=== PATIENT | female | born 1990 | race Caucasian/White ===

== ENCOUNTER 2024-02-26 02:00 | Emergency (ER) | payer MEDICAID, SELFPAY ==
[2024-02-26 02:02] VITALS: BP 129/92; PULSE 103; RESP 20; TEMP 37; O2SAT 99; BMI 33.7
--- NOTE | 2024-02-26 02:13 | XR_ITS ---
PROCEDURE INFORMATION: Exam: XR Chest Exam date and time: 02/26/2024 2:29 AM Age: 33 years old Clinical indication: Cough; Additional info: Cough x1w TECHNIQUE: Imaging protocol: Radiologic exam of the chest. Views: 2 views. COMPARISON: No relevant prior studies available. FINDINGS: Lungs: Peribronchial interstitial infiltrates are present bilaterally. No airspace disease. Pleural spaces: No pleural effusions. Heart/Mediastinum: Unremarkable. No cardiomegaly. Bones/joints: Osseous structures are appropriate for age. IMPRESSION: Airways disease or infectious bronchitis. No acute airspace pneumonia.
--- NOTE | 2024-02-26 02:23 | ED_ITS ---
Discharge Plan Disposition Patient Disposition: Home, Self-Care Prescriptions Prescriptions: New prednisone 50 mg tablet 50 mg PO DAILY 4 Days Qty: 4 0RF No Action venlafaxine 150 mg Capsule,Extended Release 24hr 150 mg PO DAILY trazodone 100 mg Tablet 50 mg PO HS topiramate 100 mg Tablet 100 mg PO BID Referrals Follow up/Referrals: Lauro Cho [Primary Care Provider] - See instructions Activity Restrictions/Add. Instructions Additional Instructions/Restrictions: You were evaluated in the ER and are appropriate for discharge at this time. Take the prescribed medications as directed. Take your albuterol, 2 puffs every 4 hours for the next 2 days if needed for cough/shortness of breath. Make an appointment with your primary care doctor for reevaluation in a few days. Return to the ER with new, worsening, or otherwise concerning symptoms Clinical Impressions Clinical Impression: Cough Print Language Print Language: Mauritian Discharge ED Provider: Sumit Conrad General Adult HPI General Chief complaint: Upper Respiratory Infection Stated complaint: congestion, body aches, cough Time Seen by Provider: 02/26/24 02:07 Mode of Arrival: Wheelchair Source of Information: Patient Limitations: No Limitations Description of Symptoms (Recalled from ER Triage Doc. by RN): 33 F presents from home with c/o cough, congestion, and flu-like symptoms that started 1 week ago. Patient reports her cough has not gotten better despite using an inhaler and albuterol pills given to her by her PCP. Patient also reports subjective fevers, low back pain that radiates down her hips. History of Present Illness HPI narrative: 33-year-old female who reports a history of discectomy, cholecystectomy, C- section presents to the ER for complaints of cough, congestion, flulike symptoms for 1 week. Patient reports negative COVID and flu test 4 days ago. She reports she overall feels worse since the onset of symptoms and has a persistent cough despite taking promethazine?dextromethorphan and albuterol despite patient having no known history of COPD, asthma, or other lung abnormalities. Patient states her whole body aches from coughing and she occasionally has emesis after coughing. She denies nausea at this time. Patient reports she has not taken Tylenol, ibuprofen, or other medications aside from what is prescribed to her. She reports poor sleep secondary to chronic cough keeping her up at night. She believes she has had fever at home despite not taking her temperature. Afebrile on arrival to the ER. Related Data Home Medications ?Medication ?Instructions ?Recorded ?Confirmed topiramate 100 mg tablet 100 mg PO BID 02/26/24 02/26/24 trazodone 100 mg tablet 50 mg PO HS 02/26/24 02/26/24 venlafaxine 150 mg 150 mg PO DAILY 02/26/24 02/26/24 capsule,extended release 24 hr Previous Rx's ?Medication ?Instructions ?Recorded prednisone 50 mg tablet 50 mg PO DAILY 4 days #4 tabs 02/26/24 Allergies Allergy/AdvReac Type Severity Reaction Status Date / Time cephalexin [From Keflex] Allergy Hives Verified 02/26/24 02:14 amoxicillin [From Augmentin] AdvReac Vomiting Verified 02/26/24 02:14 clavulanic acid AdvReac Vomiting Verified 02/26/24 02:14 [From Augmentin] PFSH [facility] Disclaimer: The information contained in this section may have been updated after the patient was seen, as this information can be updated by other users. Medical History (Updated 02/26/24 @ 03:16 by Sumit Conrad MD) Depression Anxiety Surgical History (Updated 02/26/24 @ 02:23 by Fei Dorado, JEREMÍAS) S/P lumbar discectomy S/P section S/P cholecystectomy Family History (Updated 02/26/24 @ 02:22 by Fei Dorado, RN) Other No significant family history Social History (Updated 02/26/24 @ 02:16 by Fei Dorado, RN) Smoking Status: Current every day smoker alcohol intake: current current occupational status: employed Travel in the last 8 weeks: None ROS Obtained: Yes All systems reviewed & no additional complaints except as documented Positive ROS per HPI Physical Exam General General appearance: alert and in no apparent distress Head Head exam: atraumatic and normocephalic Eye Eye exam: Present PERRL and EOMI ENT ENT exam: Present mucous membranes moist Neck Neck exam: Present normal inspection and full ROM Chest Chest inspection: Present symmetric chest wall rise Respiratory Respiratory exam: Present wheezes (Inspiratory with associated Rales in the bilateral lung maki, good air movement throughout); Absent respiratory distress, stridor, accessory muscle use or prolonged expiratory phase Cardiovascular Cardiovascular exam: Present regular rate and normal rhythm Abdominal Exam Abdominal exam: Present soft; Absent distention or tenderness Extremities Exam Extremities exam: Present full ROM Neurological Exam Neurological exam: Present alert and oriented X3; Absent motor sensory deficit Psychiatric Psychiatric exam: Present normal affect and normal mood Skin Skin exam: Present warm and dry Medical Decision Making Medical Records Screening: Per USPSTF and CDC recommendations, given the prevalence of disease in our region, it is our hospital?s policy to screen for HIV and viral Hepatitis for all patients aged 18 and over and those with ongoing risk factors. Harmeet Inquiry Pt receiving controlled substance: No Vital Signs: 02/26/24 02:02 02/26/24 02:30 02/26/24 02:48 Temperature 98.6 F Temperature Source Oral Pulse Rate 95 H 84 Pulse Rate [Right] 103 H Respiratory Rate 20 20 19 Blood Pressure 119/88 115/86 Blood Pressure [Left Arm] 129/92 H Blood Pressure Mean 98 93 Blood Pressure Mean [Left Arm] 104 Blood Pressure Source [Left Arm] Automatic Cuff Blood Pressure Position [Left Arm] Sitting 02 Sat by Pulse Oximetry 99 98 100 Oxygen Delivery Method Room Air Room Air Room Air Lab Data Lab Results 02/26/24 02:18: VBG pH 7.38, VBG pCO2 36.6, VBG pO2 33.6, VBG HCO3 21.2 L, VBG Total CO2 22.3 L, VBG O2 Saturation 75.4 H, VBG Base Excess -4.0 L, VBG Lactic Acid 1.4 02/26/24 02:30: WBC 13.5 H, RBC 5.54 H, Hgb 17.6 H, Hct 49.7 H, MCV 89.7, MCH 31.8 H, MCHC 35.5 H, RDW 13.2, Plt Count 284, MPV 7.8, Neut % (Auto) 80.4 H, Lymph % (Auto) 12.9, Aiken % (Auto) 5.8, Eos % (Auto) 0.3, Baso % (Auto) 0.8, N eut # (Auto) 10.9 H, Lymph # (Auto) 1.7, Aiken # (Auto) 0.8, Eos # (Auto) 0.0, Baso # (Auto) 0.1, Sodium 141, Potassium 3.8, Chloride 110 H, Carbon Dioxide 21 L, Anion Gap 13.8, BUN 12, Creatinine 0.80, Estimated Creat Clear 140, Estimated GFR 82, Est GFR ( Amer) 99, Glucose 83, Calcium 9.9, Total Bilirubin 0.6, AST 26, ALT 24, Alkaline Phosphatase 70, Troponin I < 0.01, Total Protein 8.7 H, Albumin 4.9, Globulin 3.8 H, Albumin/Globulin Ratio 1.3, Serum HCG, Qual Negative, HIV 1&2 Antibody Rapid Nonreactive 02/26/24 02:30 02/26/24 02:30 Orders (Tests/Meds): ED MEDICATIONS Generic Name Dose Route Start Last Admin Trade Name Freq PRN Reason Stop Dose Admin Lactated Ringer's 1,000 mls @ 999 mls/hr 02/26/24 02:22 02/26/24 02:40 Lactated Ringer's 1000 Ml Bag IV 02/26/24 03:22 999 mls/hr .Q1H1M ONE Administration Discontinued Medications Generic Name Dose Route Start Last Admin Trade Name Freq PRN Reason Stop Dose Admin Albuterol/Ipratropium 3 ml 02/26/24 02:21 02/26/24 02:40 Ipratropium/Albuterol 3 Ml Neb 02/26/24 02:22 3 ml ONCE ONE Administration Ketorolac Tromethamine 15 mg 02/26/24 02:22 02/26/24 02:40 Ketorolac 30mg/Ml Vial IV 02/26/24 02:23 15 mg ONCE ONE Administration Lidocaine HCl 5 ml 02/26/24 02:32 02/26/24 02:40 Lidocaine 2% 5ml Pf Vial IH 02/26/24 02:33 5 ml ONCE ONE Administration Methocarbamol 1,000 mg 02/26/24 03:12 02/26/24 03:19 Methocarbamol 500mg Tablet PO 02/26/24 03:13 1,000 mg ONCE ONE Administration Methylprednisolone Sodium Succinate 80 mg 02/26/24 03:13 02/26/24 03:19 Methylprednisolone Sod Succ 125mg Vial IV 02/26/24 03:14 80 mg ONCE ONE Administration ORDERS Category Date Time Status CXR 2 view (NOT portable) [XR chest 2V] Stat Exams 02/26/24 02:13 Completed CBC w/Auto Diff [Complete Blood Count Auto Diff] Stat Lab 02/26/24 02:30 Completed CMP [Comprehensive Metabolic Panel] Stat Lab 02/26/24 02:30 Completed HCG Qualitative, Serum Stat Lab 02/26/24 02:30 Completed HIV (1&2) Antibody Rapid Stat Lab 02/26/24 02:30 Completed Hep C Ab with Reflex to RNA Stat Lab 02/26/24 02:30 Received Trop I [Troponin I] Stat Lab 02/26/24 02:30 Completed Troponin I Q3H Lab 02/26/24 05:30 Ordered Troponin I Q3H Lab 02/26/24 08:30 Ordered VBG [Venous Blood Gas] Stat RT 02/26/24 02:18 Completed ECG Request Stat Y 02/26/24 02:18 Ordered HEART Score History (anamnesis): Slightly suspicious ECG: Normal Age: <45 years Risk factors: No known risk factors Troponin: </= normal limit HEART Score: 0 Medical Decision Narrative: In summary, this 33-year-old female with comorbidities as described in HPI presents to the emergency department today with cough, shortness of breath, subjective fever, flulike symptoms for 1 week. On initial evaluation patient is hemodynamically stable, afebrile, lungs have good air movement throughout however patient does have inspiratory wheezing and rales in the bilateral lung bases, left worse than right, normal SpO2 on room air, remainder of exam benign. Differential diagnosis includes but is not limited to viral syndrome, electrolyte abnormality, hypercarbia, I considered possibility of asthma/COPD since patient is a smoker, though I do not appreciate expiratory wheezing and believe her adventitious lung sounds are more likely related to infectious etiology such as viral syndrome, bacterial pneumonia. I did consider the possibility of PE but have very low suspicion for this, patient is PERC negative and no further workup for this is required at this time. Given patient's complaint of shortness of breath, ACS was considered. Based on these concerns, I ordered cardiac workup, chest x-ray, VBG. ECG personally interpreted demonstrates normal sinus rhythm, rate 85, normal axis, normal IA and QTc, no STEMI. Patient received DuoNeb, fluids, Toradol for treatment initially. Labs personally reviewed demonstrate VBG with pH 7.38, no hypercarbia, normal pO2, lactic 1.4, initial troponin undetectably low at less than 0.01, I do not believe serial troponins are indicated at this time since patient has low heart score, reassuring ECG, and prolonged duration of symptoms that should have shown troponin elevation at by this time if they were cardiac in nature. XR personally interpreted demonstrates no lobar infiltrate, pneumothorax, or other acute intrathoracic abnormality aside from airway inflammation on my personal interpretation, see radiology read for final interpretation. On reassessment patient is had improvement of cough and wheezing since nebulizer treatments. She was still having muscle aches and methocarbamol was administered. Patient also received Solu-Medrol. She reported to me she did have a history of childhood asthma which increases my suspicion for component of airway inflammation/asthma contributing to her symptoms at this time. I encouraged the patient to take her home albuterol inhaler more frequently and prescribed prednisone for outpatient management. Patient was given instructions on symptomatic management, follow up instructions, and return precautions for the emergency department. Patient indicated understanding and was discharged in stable condition. Critical Care Critical Care Time Critical Care Time: No
[2024-02-26 02:30] VITALS: BP 119/88; PULSE 95; RESP 20; O2SAT 98
[2024-02-26 02:37] LABS: Lactate Venous 1.4 mmol/L (0.4-2.0); VBG HCO3 21.2 mmol/L (23-30); VBG Oxygen Saturation 75.4 % (50-70); VBG PCO2 36.6 mmol/L (35-51); VBG PH 7.38 mmol/L (7.31-7.41); VBG PO2 33.6 mmol/L (28-40); VBG Total CO2 22.3 mmol/L (23-27)
[2024-02-26] MEDS: LACTATED RINGERS 1000ML 1,000 ML 999 ML IV (02:40)
[2024-02-26] MEDS: LIDOCAINE 2% 5ML PF VIAL 5 ML IH (02:40)
[2024-02-26] MEDS: KETOROLAC 30MG/ML VIAL 15 MG IV (02:40)
[2024-02-26] MEDS: IPRATROPIUM/ALBUTEROL 3 ML NEB IH (02:40)
--- NOTE | 2024-02-26 02:45 | ECG_ITS ---
APPROVED REPORT Exam: Resting ECG HR:85 bpm ECG Measurements Heart Rate 85 AXES OK 158 P 51 QRSd 89 QRS 36 QT 357 T 6 QTc 399 Conclusion SINUS RHYTHM Isolated T wave inversion in lead III, nonspecific, no STEMI Electronically signed by : PHILLIP MCGOWAN, 02/26/2024 07:12:17
[2024-02-26 02:48] VITALS: BP 115/86; PULSE 84; RESP 19; O2SAT 100
[2024-02-26 02:48] LABS: Basophils # 0.1 K/mm3 (0-0.2); Basophils % 0.8 % (0.1-2.0); Eosinophils % 0.3 % (0.1-12.0); Hematocrit 49.7 % (37.0-47.0); Hemoglobin 17.6 g/dL (12.2-16.2); Lymphocytes # 1.7 K/mm3 (0.7-4.5); Lymphocytes % 12.9 % (10-50); Mean Corpuscular HGB Conc 35.5 g/dL (31.8-35.4); Mean Corpuscular Hemoglobin 31.8 pg (27.0-31.2); Mean Corpuscular Volume 89.7 fl (81-99); Mean Platelet Volume 7.8 fl (7.4-10.4); Monocytes # 0.8 K/mm3 (0.1-1.0); Monocytes % 5.8 % (1.7-9.3); Neutrophils # 10.9 K/mm3 (1.8-7.8); Neutrophils % 80.4 % (37.0-80.0); Platelet Count 284 K/mm3 (142-424); Red Blood Count 5.54 M/mm3 (4.20-5.40); Red Cell Distribution Width 13.2 % (11.5-17.5); White Blood Count 13.5 K/mm3 (4.8-10.8)
[2024-02-26 02:49] LABS: Alanine Aminotransferase 24 U/L (12-78); Albumin Level 4.9 g/dl (3.5-5.0); Albumin/Globulin Ratio 1.3 (1.1-1.8); Alkaline Phosphatase 70 U/L (38-126); Aspartate Amino Transferase 26 U/L (14-36); Bilirubin,Total 0.6 mg/dl (0.2-1.3); Blood Urea Nitrogen 12 mg/dl (7-17); Calcium 9.9 mg/dl (8.4-10.2); Carbon Dioxide 21 mmol/L (22.0-30.0); Chloride 110 mmol/L (98-107); Creatinine Clearance Estimated 140 mL/min (50-200); Estimated Glomerular Filt Rate 82 ml/min (>60); GFR (African American) 99 ML/MIN (>60); Globulin 3.8 g/dL (1.3-3.2); Glucose 83 mg/dl (74-100); Sodium 141 mmol/L (136-145); Total Protein,Serum 8.7 g/dl (6.3-8.2)
[2024-02-26 02:52] LABS: Anion Gap 13.8 mEq/L (5-15); Potassium 3.8 mmoL/L (3.5-5.1)
[2024-02-26 02:53] LABS: HCG Qualitative, Serum Negative (Negative)
[2024-02-26 03:11] LABS: Troponin I < 0.01 ng/ml (0.00-0.034)
[2024-02-26 03:15] LABS: HIV (1&2) Antibody Rapid NONREACTIVE (NONREACTIVE)
[2024-02-26] MEDS: METHYLPREDNISOLONE SOD SUCC 125MG VIAL 80 MG IV (03:19)
[2024-02-26] MEDS: METHOCARBAMOL 500MG TABLET 1000 MG PO (03:19)
[2024-02-26 03:20] VITALS: BP 114/74; PULSE 92; RESP 20; TEMP 37; O2SAT 99
[2024-02-27 08:24] LABS: HCV Ab Non Reactive (Non Reactive)
== END 2024-02-26 03:28 | disposition home or self-care (01) ==
PROVIDERS: Emergency Provider Emergency Medicine; PCP Pediatrics
DX: R05.9 Cough, unspecified (principal); R06.02 Shortness of breath; R09.81 Nasal congestion; R11.2 Nausea with vomiting, unspecified; R50.9 Fever, unspecified; M54.50 Low back pain, unspecified
CPT/HCPCS: 71046; 80053; 82803; 84484; 84703; 85025; 86803; 87389; 93005; 96360; 96374; 96375; 99284; J1885; J2919; J7120; J7620

== ENCOUNTER 2024-05-12 16:34 | Emergency (ER) | payer MEDICAID, SELFPAY ==
[2024-05-12] VITALS (12 sets, daily range): BP systolic 125–158; BP diastolic 92–115; PULSE 67–99; RESP 18; TEMP 36.6–36.7; O2SAT 96–100; BMI 35.4
--- NOTE | 2024-05-12 17:00 | ED_ITS ---
Discharge Plan Disposition Patient Disposition: Home, Self-Care Prescriptions Prescriptions: New dicyclomine 10 mg capsule 10 mg PO BID Qty: 10 0RF ondansetron 4 mg tablet,disintegrating 4 mg PO DAILY 3 Days Qty: 3 0RF No Action topiramate 100 mg tablet 100 mg PO BID Qty: 180 1RF venlafaxine 150 mg capsule,extended release 24hr 150 mg PO DAILY Qty: 90 1RF trazodone 100 mg tablet 100 mg PO HS Qty: 90 1RF prednisone 20 mg tablet 20 mg PO .COMPLEX Qty: 15 0RF Rx Instructions: 20 mg orally BID x 5 days then daily x 5 days doxycycline hyclate 100 mg tablet 100 mg PO BID Qty: 20 0RF benzonatate 200 mg capsule 200 mg PO TID PRN (Reason: cough) Qty: 30 0RF dextromethorphan-guaifenesin 60-1,200 mg tablet extended release 12 hr 1 tab PO Q12H Qty: 60 0RF albuterol sulfate 90 mcg/actuation HFA aerosol inhaler 2 puff inhalation Q4-6H PRN (Reason: shortness of breath or wheezing) Qty: 8.5 0RF Referrals Follow up/Referrals: Nanette Funez APRN [Primary Care Provider] - See instructions Activity Restrictions/Add. Instructions Additional Instructions/Restrictions: Please follow-up with your primary care doctor in the next couple of days, please take the medications as prescribed. Clinical Impressions Clinical Impression: Colitis Instructions Patient Instructions: DI for Diarrhea and Traveler's Diarrhea -- Adult, DI for Diarrhea and Traveler's Diarrhea -- Child, DI for Nausea -- Adult, DI for Nausea -- Child Print Language Print Language: Swedish Discharge ED Provider: Ronald Diaz Adult HPI General Chief complaint: Nausea/Vomiting/Diarrhea Stated complaint: stomach/Rt side/back pain, diarrhea,blood in stool Time Seen by Provider: 05/12/24 17:00 Mode of Arrival: Ambulatory Source of Information: Patient Limitations: No Limitations Description of Symptoms (Recalled from ER Triage Doc. by RN): PT REPORTS RIGHT SIDED ABDOMINAL PAIN, NAUSEA AND BLOODY DIARRHEA FOR 2-3 DAYS History of Present Illness HPI narrative: Patient is a 33-year-old past medical history of cholecystectomy, anxiety, depression presenting for right-sided abdominal pain nausea and bloody diarrhea. According the patient she started having nonbloody diarrhea and then today noticed that she started to have blood in her bowel movements. She has never had any symptoms like this before. Patient has had some nausea without vomiting. Patient said that she sees the blood on the toilet paper and in the bowl. Patient said that she has been having right lower quadrant abdominal pain that initially started in her epigastrium. Patient said that the pain now shoots to her back as well. Patient has never had kidney stones in the past and has had no hematuria patient has been taking Tylenol and Motrin for pain does not seem to be helping. At this time patient denies chest pain, shortness of breath, blurry vision Related Data Previous Rx's ?Medication ?Instructions ?Recorded albuterol sulfate 90 mcg/actuation 2 puff inhalation Q4-6H PRN 05/03/24 aerosol inhaler shortness of breath or wheezing #8.5 grams benzonatate 200 mg capsule 200 mg PO TID PRN cough #30 caps 05/03/24 dextromethorphan-guaifenesin ER 60 1 tab PO Q12H #60 tabs 05/03/24 mg-1,200 mg tab,extend release,12hr doxycycline hyclate 100 mg tablet 100 mg PO BID #20 tabs 05/03/24 prednisone 20 mg tablet 20 mg PO .COMPLEX #15 tabs 05/03/24 topiramate 100 mg tablet 100 mg PO BID #180 tabs 05/03/24 trazodone 100 mg tablet 100 mg PO HS #90 tabs 05/03/24 venlafaxine 150 mg 150 mg PO DAILY #90 caps 05/03/24 capsule,extended release 24 hr dicyclomine 10 mg capsule 10 mg PO BID #10 caps 05/12/24 ondansetron 4 mg disintegrating 4 mg PO DAILY 3 days #3 tabs 05/12/24 tablet Allergies Allergy/AdvReac Type Severity Reaction Status Date / Time cephalexin (From Keflex) Allergy Hives Verified 05/03/24 13:49 amoxicillin (From Augmentin) AdvReac Vomiting Verified 05/03/24 13:49 clavulanic acid (From AdvReac Vomiting Verified 05/03/24 13:49 Augmentin) [facility] Disclaimer: The information contained in this section may have been updated after the patient was seen, as this information can be updated by other users. Medical History (Updated 05/12/24 @ 20:49 by Ronald Diaz MD) Depression Anxiety Surgical History (Updated 02/26/24 @ 02:23 by Fei Dorado RN) S/P lumbar discectomy S/P section S/P cholecystectomy Family History (Updated 05/03/24 @ 13:51 by Cierra Johnston MA) Grandfather Cancer Other No significant family history Social History (Updated 02/26/24 @ 03:22 by Sumit Conrad MD) Smoking Status: Current every day smoker alcohol intake: current current occupational status: employed Travel in the last 8 weeks: None Have you lived/traveled outside [place] in past 30 days?: No Contact w/someone who lives/traveled outside US past 30 days?: No Exposure to someone with infectious disease in past 14 days?: No Do you have a fever (greater than 100.4 F or 38 C)?: No Have you tested positive for COVID-19: No Exposed to someone with COVID-19 in past 14 days?: No Do you have a sore throat?: No Do you have a cough?: No Do you have any weakness?: No Do you have any diarrhea?: No Are you experiencing any unusual bleeding?: No Do you have any muscle aches/pain?: No Do you have any abdominal pain?: No Are you experiencing loss of taste or smell?: No ROS Obtained: Yes All systems reviewed & no additional complaints except as documented Physical Exam General General appearance: alert, in no apparent distress and anxious Eye Eye exam: Present normal appearance ENT ENT exam: Present normal exam Chest Chest inspection: Present symmetric chest wall rise Respiratory Respiratory exam: Present normal lung sounds bilaterally; Absent respiratory distress Cardiovascular Cardiovascular exam: Present regular rate Abdominal Exam Abdominal exam: Present soft and tenderness (Right upper and lower quadrant); Absent guarding or rebound Extremities Exam Extremities exam: Present full ROM; Absent tenderness Back Exam Back exam: Present normal inspection and full ROM; Absent tenderness, CVA tenderness (R) or CVA tenderness (L) Neurological Exam Neurological exam: Present alert and oriented X3 Psychiatric Psychiatric exam: Present normal affect Skin Skin exam: Present warm and normal color Medical Decision Making Medical Records Screening: Per USPSTF and CDC recommendations, given the prevalence of disease in our region, it is our hospital?s policy to screen for HIV and viral Hepatitis for all patients aged 18 and over and those with ongoing risk factors. [place] Inquiry Pt receiving controlled substance: No Vital Signs: 05/12/24 16:35 05/12/24 16:43 05/12/24 16:57 Temperature 97.9 F Temperature Source Oral Pulse Rate 94 H 86 Pulse Rate [Radial] 99 H Respiratory Rate 18 Blood Pressure 148/115 H 147/105 H Blood Pressure [Right Arm] 148/115 H Blood Pressure Mean [Right Arm] 126 Blood Pressure Source Blood Pressure Source [Right Arm] Automatic Cuff Blood Pressure Position Blood Pressure Position [Right Arm] Sitting 02 Sat by Pulse Oximetry 99 100 98 Oxygen Delivery Method Room Air Room Air Room Air 05/12/24 17:00 05/12/24 17:30 05/12/24 18:00 Temperature Temperature Source Pulse Rate 89 67 74 Pulse Rate [Radial] Respiratory Rate Blood Pressure 149/110 H 136/98 H 125/92 H Blood Pressure [Right Arm] Blood Pressure Mean [Right Arm] Blood Pressure Source Blood Pressure Source [Right Arm] Blood Pressure Position Blood Pressure Position [Right Arm] 02 Sat by Pulse Oximetry 96 98 98 Oxygen Delivery Method Room Air Room Air 05/12/24 18:36 05/12/24 19:00 05/12/24 19:30 Temperature Temperature Source Pulse Rate 77 86 68 Pulse Rate [Radial] Respiratory Rate Blood Pressure 144/102 H 144/100 H 151/104 H Blood Pressure [Right Arm] Blood Pressure Mean [Right Arm] Blood Pressure Source Blood Pressure Source [Right Arm] Blood Pressure Position Blood Pressure Position [Right Arm] 02 Sat by Pulse Oximetry 98 99 99 Oxygen Delivery Method 05/12/24 20:00 05/12/24 21:00 05/12/24 21:38 Temperature 98.0 F Temperature Source Oral Pulse Rate 78 75 82 Pulse Rate [Radial] Respiratory Rate 18 Blood Pressure 158/101 H 146/97 H 146/97 H Blood Pressure [Right Arm] Blood Pressure Mean [Right Arm] Blood Pressure Source Automatic Cuff Blood Pressure Source [Right Arm] Blood Pressure Position Sitting Blood Pressure Position [Right Arm] 02 Sat by Pulse Oximetry 98 100 Oxygen Delivery Method Room Air Lab Data Lab Results 05/12/24 16:45: WBC 9.4, RBC 5.70 H, Hgb 18.1 H, Hct 50.9 H, MCV 89.3, MCH 31.8 H, MCHC 35.6 H, RDW 11.9, Plt Count 337, MPV 10.5 H, Neut % (Auto) 55.2, Lymph % (Auto) 33.4, [place] % (Auto) 7.2, Eos % (Auto) 2.8, Baso % (Auto) 1.1, Neut # (Auto) 5.2, Lymph # (Auto) 3.1, [place] # (Auto) 0.7, Eos # (Auto) 0.3, Baso # (Auto) 0.1, PT 11.5, INR 1.03, APTT 38.3 H, Sodium 138, Potassium 3.9, Chloride 108 H, Carbon Dioxide 25, Anion Gap 8.9, BUN 10, Creatinine 0.80, Estimated Creat Clear 142, Estimated GFR 82, Est GFR ( Amer) 99, Glucose 100, Lactate 1.2, Calcium 9.8, Total Bilirubin 0.9, AST 38 H, ALT 31, Alkaline Phosphatase 60, Troponin I < 0.01, Total Protein 8.5 H, Albumin 5.0, Globulin 3.5 H, Albumin/Globulin Ratio 1.4, Lipase 134, Serum HCG, Qual Negative, Urine Color Yellow, Urine Appearance Clear, Urine pH 7.0, Ur Specific [place] 1.010, Urine Protein Negative, Urine Glucose (UA) Negative, Urine Ketones Negative, Urine Blood Trace-i, Urine Nitrate Negative, Urine Bilirubin Negative, Urine Urobilinogen 0.2, Ur Leukocyte Esterase Negative, Urine RBC 3-5, Urine WBC Occasional, Ur Squamous Epith Cells 3-5, Urine Bacteria Trace, Urine Sodium 69.0 05/12/24 18:45: NT-Pro-B Natriuret Pep 35.1 05/12/24 20:22: Troponin I < 0.01 05/12/24 16:45 05/12/24 16:45 Orders (Tests/Meds): ED MEDICATIONS Discontinued Medications Generic Name Dose Route Start Last Admin Trade Name Derekq PRN Reason Stop Dose Admin Acetaminophen 1,000 mg 05/12/24 17:26 05/12/24 17:37 Acetaminophen 1,000mg/100ml Vial IV 05/12/24 17:27 1,000 mg ONCE ONE Administration Famotidine 20 mg 05/12/24 17:26 05/12/24 17:37 Famotidine 20mg/2ml Vial IV 05/12/24 17:27 20 mg ONCE ONE Administration Hydromorphone HCl 1 mg 05/12/24 19:34 05/12/24 19:42 Hydromorphone 2mg/Ml Syringe IV 05/12/24 19:35 1 mg ONCE ONE Administration Lactated Ringer's 500 mls @ 999 mls/hr 05/12/24 17:26 05/12/24 17:37 Lactated Ringer's 500ml IV 05/12/24 17:56 999 mls/hr .Q31M ONE Administration Iopamidol 80 ml 05/12/24 18:20 05/12/24 18:21 Iopamidol-370 (76%);100ml Bottle IV 05/12/24 18:21 80 ml ONCE ONE Administration Morphine Sulfate 4 mg 05/12/24 17:26 05/12/24 17:37 Morphine 4mg/Ml Syringe IV 05/12/24 17:27 4 mg ONCE ONE Administration Ondansetron HCl 4 mg 05/12/24 17:26 05/12/24 17:39 Ondansetron 4mg/2ml Vial IV 05/12/24 17:27 4 mg ONCE ONE Administration Oxycodone HCl 5 mg 05/12/24 21:33 05/12/24 21:35 Oxycodone 5mg Immediate Release Tablet PO 05/12/24 21:34 5 mg ONCE ONE Administration Sodium Chloride 10 ml 05/12/24 18:20 05/12/24 18:21 Sodium Chloride 0.9% 10ml Syr (Rad Only) IV 05/12/24 18:21 10 ml ONCE ONE Administration Sodium Chloride 50 ml 05/12/24 18:20 05/12/24 18:21 0.9 % Sodium Chloride 50 Ml Vial IV 05/12/24 18:21 50 ml ONCE ONE Administration ORDERS Category Date Time Status CT angio abdomen pelvis Stat Cat Scan 05/12/24 17:26 Completed Activated Partial Thrombo Time Stat Lab 05/12/24 16:45 Completed Complete Blood Count Auto Diff Stat Lab 05/12/24 16:45 Completed Comprehensive Metabolic Panel Stat Lab 05/12/24 16:45 Completed HCG Qualitative, Serum Stat Lab 05/12/24 16:45 Completed Lactic Acid Stat Lab 05/12/24 16:45 Completed Lipase Stat Lab 05/12/24 16:45 Completed NT Pro Brain Natriuretic Pep. Stat Lab 05/12/24 18:45 Completed Prothrombin Time INR Stat Lab 05/12/24 16:45 Completed Sodium,Urine Random Stat Lab 05/12/24 16:45 Completed Troponin I Q3H Lab 05/12/24 20:22 Completed Troponin I Stat Lab 05/12/24 16:45 Completed Urinalysis and Microscopic Stat Lab 05/12/24 16:45 Completed Medical Decision Narrative: In summary, this 33-year-old female presents to the emergency department today with abdominal pain, nausea, diarrhea. On initial evaluation patient is tearful, but otherwise hemodynamically stable alert with right lower quadrant abdominal pain. She is additionally having bloody bowel movements. Differential diagnosis includes but is not limited to gastroenteritis, enteritis, appendicitis, ischemic colitis, mesenteric ischemia. Based on these concerns, I ordered CT, pain meds, labs. Patient received pain medication for treatment. Labs personally reviewed demonstrate elevated hemoglobin, no leukocytosis, mildly elevated a PTT, mildly elevated AST. CT imaging personally interpreted demonstrate no hemoperitoneum or pneumoperitoneum. On reassessment patient's pain well-controlled, able to p.o. Patient may have a hemorrhagic colitis or may started having blood as she has had multiple episodes of diarrhea and then started having bloody diarrhea due to irritation. Increase in the suspicion is she has had blood on the toilet paper as well and is painful when she is having a bowel movement. Patient has no leukocytosis but labs indicate that she may be dehydrated, she did receive a fluid bolus while in the emergency department. Patient was given strict return precautions, all questions answered, patient discharged in stable condition. Patient's prescriptions were reviewed and given Bentyl and Zofran. Admission as considered and deferred at this time as patient is overall well- appearing, has close follow-up. Of note, social determinants of health include low health literacy. Critical Care Critical Care Time Critical Care Time: No
--- NOTE | 2024-05-12 17:26 | CT_ITS ---
PROCEDURE INFORMATION: Exam: CTA Abdomen and Pelvis With Contrast Exam date and time: 05/12/2024 6:11 PM Age: 33 years old Clinical indication: Abdominal pain; Other: Rlq; Patient HX: PT states she had stomach virus, now has blood in stool; Additional info: Right lower quadrant pain, bloody stool TECHNIQUE: Imaging protocol: Computed tomographic angiography of the abdomen and pelvis with contrast. Exam focused on the arteries. 3D rendering (Not supervised by radiologist): MIP and/or 3D reconstructed images were created by the technologist. Radiation optimization: All CT scans at this facility use at least one of these dose optimization techniques: automated exposure control; mA and/or kV adjustment per patient size (includes targeted exams where dose is matched to clinical indication); or iterative reconstruction. Contrast material: ISOVUE 370; Contrast volume: 80 ml; Contrast route: INTRAVENOUS (IV); COMPARISON: CR XR CHEST 2V 02/26/2024 2:29 AM FINDINGS: Aorta: No aortic aneurysm. No aortic dissection. Celiac trunk and mesenteric arteries: No occlusion or significant stenosis. Renal arteries: No occlusion or significant stenosis. Right iliac arteries: No occlusion or significant stenosis. Left iliac arteries: No occlusion or significant stenosis. Liver: Liver appears diffusely fatty. No focal hepatic abnormality. Gallbladder and biliary ducts: Gallbladder is surgically absent. No significant biliary ductal dilation. Pancreas: Unremarkable. No mass. No ductal dilation. Spleen: Unremarkable. No splenomegaly. Adrenal glands: Unremarkable. No mass. Kidneys and ureters: Unremarkable. No solid mass. No hydronephrosis. Stomach and bowel: Colon appears mildly diffusely thick-walled but is nondistended, limiting evaluation. There is also suggestion of colonic mucosal enhancement, raising concern for colitis. No obstruction. No mucosal thickening. Appendix: No evidence of appendicitis. The appendix is visualized and appears normal. Intraperitoneal space: Unremarkable. No free air. No significant fluid collection. Lymph nodes: Unremarkable. No enlarged lymph nodes. Urinary bladder: Unremarkable. No mass. Reproductive: Unremarkable as visualized. Bones/joints: No acute fracture. Soft tissues: Unremarkable. IMPRESSION: 1. Findings concerning for diffuse colitis, evaluation for which is limited due to nondistention of the colon 2. Fatty liver 3. No definite evidence of active GI bleed. Evaluation for GI bleed is limited due to lack of multiphase post-contrast imaging.
[2024-05-12 17:34] LABS: Microscopic, Urine URINE MICROSCOPIC (MICROSCOPIC)
[2024-05-12] MEDS: RINGERS SOLUTION,LACTATED 500 ML 999 ML IV (17:37)
[2024-05-12] MEDS: MORPHINE 4MG/ML SYRINGE 4 MG IV (17:37)
[2024-05-12] MEDS: FAMOTIDINE 20MG/2ML VIAL 20 MG IV (17:37)
[2024-05-12] MEDS: ACETAMINOPHEN 1,000MG/100ML VIAL 1000 MG IV (17:37)
[2024-05-12] MEDS: ONDANSETRON 4MG/2ML VIAL 4 MG IV (17:39)
[2024-05-12 17:43] LABS: Appearance,Urine CLEAR (Clear); Bilirubin,Urine Negative (Negative); Blood, Urine TRACE-I (Negative); Color,Urine YELLOW (Yellow); Glucose,Urine (UA) Negative (Negative); Ketones,Urine Negative (Negative); Leukocyte Esterase,Urine Negative (Negative); Nitrate,Urine Negative (Negative); Protein,Urine Negative (Negative); Urobilinogen,Urine 0.2 EU/dl (0.2)
[2024-05-12 17:46] LABS: Chloride 108 mmol/L (98-107); Potassium 3.9 mmoL/L (3.5-5.1); Sodium 138 mmol/L (136-145)
[2024-05-12 17:49] LABS: Alanine Aminotransferase 31 U/L (12-78); Albumin/Globulin Ratio 1.4 (1.1-1.8); Alkaline Phosphatase 60 U/L (38-126); Anion Gap 8.9 mEq/L (5-15); Aspartate Amino Transferase 38 U/L (14-36); Bilirubin,Total 0.9 mg/dl (0.2-1.3); Blood Urea Nitrogen 10 mg/dl (7-17); Calcium 9.8 mg/dl (8.4-10.2); Carbon Dioxide 25 mmol/L (22.0-30.0); Creatinine Clearance Estimated 142 mL/min (50-200); Estimated Glomerular Filt Rate 82 ml/min (>60); GFR (African American) 99 ML/MIN (>60); Globulin 3.5 g/dL (1.3-3.2); Glucose 100 mg/dl (74-100); Lactic Acid 1.2 mmol/L (0.7-2.1); Lipase 134 U/L (23-300); Total Protein,Serum 8.5 g/dl (6.3-8.2)
[2024-05-12 17:52] LABS: Activated Partial Thrombo Time 38.3 seconds (22.8-30.6); INR 1.03 (0.9-1.1); Prothrombin Time 11.5 seconds (10.1-12.5)
[2024-05-12 17:58] LABS: HCG Qualitative, Serum Negative (Negative)
[2024-05-12 18:02] LABS: White Blood Count 9.4 K/mm3 (4.8-10.8)
[2024-05-12 18:03] LABS: Basophils % 1.1 % (0.1-2.0); Eosinophils % 2.8 % (0.1-12.0); Hematocrit 50.9 % (37.0-47.0); Lymphocytes # 3.1 K/mm3 (0.7-4.5); Lymphocytes % 33.4 % (10-50); Mean Corpuscular HGB Conc 35.6 g/dL (31.8-35.4); Mean Corpuscular Hemoglobin 31.8 pg (27.0-31.2); Mean Corpuscular Volume 89.3 fl (81-99); Mean Platelet Volume 10.5 fl (7.4-10.4); Monocytes % 7.2 % (1.7-9.3); Neutrophils # 5.2 K/mm3 (1.8-7.8); Neutrophils % 55.2 % (37.0-80.0); Platelet Count 337 K/mm3 (142-424); Red Cell Distribution Width 11.9 % (11.5-17.5)
[2024-05-12 18:04] LABS: Basophils # 0.1 K/mm3 (0-0.2); Eosinophils # 0.3 K/mm3 (0.0-0.4); Monocytes # 0.7 K/mm3 (0.1-1.0)
[2024-05-12] MEDS: 0.9 % SODIUM CHLORIDE 50 ML VIAL IV (18:21)
[2024-05-12] MEDS: SODIUM CHLORIDE 0.9% 10ML SYR (RAD ONLY) 10 ML IV (18:21)
[2024-05-12] MEDS: IOPAMIDOL-370 (76%);100ML BOTTLE 80 ML IV (18:21)
[2024-05-12 18:26] LABS: Bacteria,Urine Trace /lpf; WBC,Urine Occasional #/hpf (0-3)
[2024-05-12 18:37] LABS: Troponin I < 0.01 ng/ml (0.00-0.034)
[2024-05-12 19:16] LABS: Hemoglobin 18.1 g/dL (12.2-16.2)
[2024-05-12] MEDS: HYDROMORPHONE 2MG/ML SYRINGE 1 MG IV (19:42)
[2024-05-12 19:55] LABS: NT Pro Brain Natriuretic Pep. 35.1 pg/mL (0-125)
[2024-05-12 20:48] LABS: Troponin I < 0.01 ng/ml (0.00-0.034)
[2024-05-12] MEDS: OXYCODONE 5MG IMMEDIATE RELEASE TABLET 5 MG PO (21:35)
== END 2024-05-12 21:39 | disposition home or self-care (01) ==
PROVIDERS: Emergency Provider Student in an Organized Health Care Education/Training Program; PCP Nurse Practitioner
DX: K52.9 Noninfective gastroenteritis and colitis, unspecified (principal); R10.31 Right lower quadrant pain; R11.0 Nausea; K92.1 Melena; M54.9 Dorsalgia, unspecified
CPT/HCPCS: 74174; 80053; 81001; 83605; 83690; 83880; 84484; 84540; 84703; 85025; 85610; 85730; 96361; 96374; 96375; 99285; J0131; J1171; J2270; J2405; J7120; Q9967; S0028

== ENCOUNTER 2024-06-15 13:59 | Outpatient (CLI) | payer MEDICAID, SELFPAY ==
[2024-06-16 09:22] LABS: Coronavirus 19, PCR Not Detected (NotDetected); Human Rhinovirus Not Detected (NotDetected); Influenza A, PCR Not Detected (NotDetected); Influenza B, PCR Not Detected (NotDetected); Respiratory Syncytial Virus Not Detected (NotDetected)
== END 2024-06-15 23:59 | disposition home or self-care (01) ==
LOC: LAB.DROPOF 06-19 14:00
PROVIDERS: PCP Nurse Practitioner; Visit Provider Nurse Practitioner
DX: J06.9 Acute upper respiratory infection, unspecified (principal); Z72.0 Tobacco use
CPT/HCPCS: 87631

== ENCOUNTER 2024-06-21 09:35 | Outpatient (CLI) | payer MEDICAID, SELFPAY ==
[2024-06-21 17:58] LABS: Adenovirus F 40/41, stool Not Detected (NotDetected); Astrovirus Not Detected (NotDetected); Campylobacter Not Detected (NotDetected); Clostridium Difficile A/B, PCR Not Detected (NotDetected); Cryptosporidium Not Detected (NotDetected); Cyclospora Cayetanesis Not Detected (NotDetected); Entamoeba histolytica Not Detected (NotDetected); Enteroaggregative E coli Not Detected (NotDetected); Enteropathogenic E coli Not Detected (NotDetected); Enterotoxigenic E coli Not Detected (NotDetected); Giardia lamblia Not Detected (NotDetected); Norovirus Not Detected (NotDetected); Plesimonas Shigalloides, PCR Not Detected (NotDetected); Rotavirus A Not Detected (NotDetected); Salmonella, PCR Not Detected (NotDetected); Sapovirus Not Detected (NotDetected); Shiga-like toxin E coli Not Detected (NotDetected); Shigella Enterovasive E coli Not Detected (NotDetected); Vibrio Cholerae Not Detected (NotDetected); Vibrio, PCR Not Detected (NotDetected); Yersinia Entercolitica, PCR Not Detected (NotDetected)
== END 2024-06-21 23:59 | disposition home or self-care (01) ==
LOC: LAB.DROPOF 06-22 09:36
PROVIDERS: PCP Nurse Practitioner Family; Visit Provider Nurse Practitioner Family
DX: R19.7 Diarrhea, unspecified (principal)
CPT/HCPCS: 87506

== ENCOUNTER 2024-06-30 19:35 | Emergency (ER) | payer MEDICAID, SELFPAY ==
[2024-06-30 19:44] VITALS: BP 182/105; PULSE 82; RESP 18; TEMP 36.9; O2SAT 100; BMI 35.4
--- NOTE | 2024-06-30 20:16 | PC.NURSE ---
Repeat Trop. sent to lab.
[2024-06-30] MEDS: ACETAMINOPHEN 500MG TAB 1000 MG PO (20:46)
[2024-06-30] MEDS: LIDOCAINE 5% TRANSDERMAL PATCH 1 EACH TP (20:46)
[2024-06-30] MEDS: KETOROLAC 30MG/ML VIAL 30 MG IM (20:46)
[2024-06-30] MEDS: METHOCARBAMOL 500MG TABLET 500 MG PO (20:46)
--- NOTE | 2024-06-30 21:32 | HMH.EDGENADL ---
Discharge Plan Disposition Patient Disposition: Home, Self-Care Condition: Good Prescriptions Prescriptions: New methocarbamol 750 mg tablet 750 mg PO Q8H PRN (Reason: pain) Qty: 20 0RF prednisone 20 mg tablet 40 mg PO DAILY 4 Days Qty: 8 0RF naproxen 500 mg tablet 500 mg PO BID Qty: 20 0RF No Action hyoscyamine sulfate 0.125 mg tablet 0.125 mg PO QID PRN (Reason: abdominal pain) Qty: 60 3RF fluticasone propionate 50 mcg/actuation spray,suspension 1 spray intranasal DAILY Qty: 16 2RF Rx Instructions: administer into each nostril topiramate 100 mg tablet 100 mg PO BID Qty: 180 1RF venlafaxine 150 mg capsule,extended release 24hr 150 mg PO DAILY Qty: 90 1RF trazodone 100 mg tablet 100 mg PO HS Qty: 90 1RF albuterol sulfate 90 mcg/actuation HFA aerosol inhaler 2 puff inhalation Q4-6H PRN (Reason: shortness of breath or wheezing) Qty: 8.5 0RF Referrals Follow up/Referrals: Nanette Funez APRN [Primary Care Provider] - See instructions Activity Restrictions/Add. Instructions Additional Instructions/Restrictions: You were evaluated in the emergency department today. Please picking tech your prescriptions and take them as needed for pain. You may also take Tylenol every 4-6 hours as needed. Follow-up closely with your primary care provider. Return to the emergency department for new or worsening symptoms Clinical Impressions Clinical Impression: Back pain, Back strain, Viral URI with cough Stand Alone Forms Stand Alone Forms: Work/School Release Instructions Patient Instructions: DI for Low Back Pain, DI for Viral Upper Respiratory Infection -- Adult Print Language Print Language: Sami Discharge ED Provider: Mounika Diaz General Adult HPI General Chief complaint: Back Pain/Injury Stated complaint: cough, back pain Time Seen by Provider: 06/30/24 20:21 Mode of Arrival: Ambulatory Source of Information: Patient Limitations: No Limitations Description of Symptoms (Recalled from ER Triage Doc. by RN): Patient states she has been having a cough x2 days. States she was coughing today, felt a pop in her back, and is not having mid back pain. States she took a muscle relaxer earlier today with no results. Denies seeking treatment for cough. States she has been taking OTC medication. Endorses nausea. Denies vomiting. History of Present Illness HPI narrative: This patient is a 33-year-old female with a history of degenerative disc disease and disc herniations requiring surgery in the past presenting to the emergency department for evaluation of concern for mid back pain after coughing. Patient states she has been coughing for 2 days, coughed really hard today, and felt a pop in her mid back. She is now having mid back pain that radiates down her left leg. She took a muscle relaxer without good improvement. She has no numbness, tingling, saddle anesthesia, incontinence, retention, or other concerns. She is ambulatory. She was well prior to this with no other concerns or complaints noted at this time. Related Data Previous Rx's ?Medication ?Instructions ?Recorded albuterol sulfate 90 mcg/actuation 2 puff inhalation Q4-6H PRN 05/03/24 aerosol inhaler shortness of breath or wheezing #8.5 grams topiramate 100 mg tablet 100 mg PO BID #180 tabs 05/03/24 trazodone 100 mg tablet 100 mg PO HS #90 tabs 05/03/24 venlafaxine 150 mg 150 mg PO DAILY #90 caps 05/03/24 capsule,extended release 24 hr fluticasone propionate 50 1 spray intranasal DAILY #16 grams 06/15/24 mcg/actuation nasal spray,suspension hyoscyamine sulfate 0.125 mg tablet 0.125 mg PO QID PRN abdominal pain 06/21/24 #60 tabs methocarbamol 750 mg tablet 750 mg PO Q8H PRN pain #20 tabs 06/30/24 naproxen 500 mg tablet 500 mg PO BID #20 tabs 06/30/24 prednisone 20 mg tablet 40 mg (2 x 20 mg) PO DAILY 4 days 06/30/24 #8 tabs Allergies Allergy/AdvReac Type Severity Reaction Status Date / Time cephalexin (From Keflex) Allergy Hives Verified 06/15/24 13:48 amoxicillin (From Augmentin) AdvReac Vomiting Verified 06/15/24 13:48 clavulanic acid (From AdvReac Vomiting Verified 06/15/24 13:48 Augmentin) [facility] Disclaimer: The information contained in this section may have been updated after the patient was seen, as this information can be updated by other users. Medical History Wolfgang blood in stool Depression Anxiety Surgical History S/P lumbar discectomy S/P section S/P cholecystectomy Family History Grandfather Cancer Other No significant family history Social History Smoking Status: Current every day smoker alcohol intake: current current occupational status: employed Travel in the last 8 weeks: None Have you lived/traveled outside [place] in past 30 days?: No Contact w/someone who lives/traveled outside [place] past 30 days?: No Exposure to someone with infectious disease in past 14 days?: No Do you have a fever (greater than 100.4 F or 38 C)?: No Have you tested positive for COVID-19: No Exposed to someone with COVID-19 in past 14 days?: No Do you have a sore throat?: No Do you have a cough?: Yes Do you have any weakness?: No Do you have any diarrhea?: No Are you experiencing any unusual bleeding?: No Do you have any muscle aches/pain?: Yes Do you have any abdominal pain?: No Are you experiencing loss of taste or smell?: No Other Medical History Have you received the Pneumonia Vaccine: No ROS Obtained: Yes All systems reviewed & no additional complaints except as documented Physical Exam General General appearance: alert and in no apparent distress Head Head exam: atraumatic and normocephalic Eye Eye exam: Present normal appearance, PERRL and EOMI ENT ENT exam: Present normal exam, normal oropharynx, mucous membranes moist and normal external ear exam Neck Neck exam: Present normal inspection, full ROM and trachea midline; Absent tenderness Chest Chest inspection: Present normal inspection and symmetric chest wall rise; Absent tenderness Respiratory Respiratory exam: Present normal lung sounds bilaterally; Absent respiratory distress, wheezes, stridor or accessory muscle use Cardiovascular Cardiovascular exam: Present regular rate and normal rhythm Abdominal Exam Abdominal exam: Present soft; Absent distention, tenderness or guarding Extremities Exam Extremities exam: Present normal inspection, full ROM and normal capillary refill; Absent tenderness or edema Back Exam Back exam: Present full ROM and tenderness Back 1 view image: 1. Paraspinal tenderness to palpation with muscle hypertonicity Neurological Exam Neurological exam: Present alert, oriented X3, CN II-XII intact and normal gait; Absent motor sensory deficit Psychiatric Psychiatric exam: Present normal affect and normal mood Skin Skin exam: Present warm and dry Medical Decision Making Medical Records Medical records reviewed: Yes I reviewed the patient's medical records. Screening: Per USPSTF and CDC recommendations, given the prevalence of disease in our region, it is our hospital?s policy to screen for HIV and viral Hepatitis for all patients aged 18 and over and those with ongoing risk factors. [place] Inquiry Pt receiving controlled substance: No Vital Signs: 06/30/24 19:44 06/30/24 22:06 Temperature 98.4 F 98.2 F Temperature Source Oral Oral Pulse Rate 69 Pulse Rate [Radial] 82 Respiratory Rate 18 18 Blood Pressure 95/71 L Blood Pressure [R Arm] 182/105 H Blood Pressure Mean [R Arm] 130 Blood Pressure Source [R Arm] Manual Cuff/ Palpation Blood Pressure Position [R Arm] Sitting 02 Sat by Pulse Oximetry 100 Oxygen Delivery Method Room Air Lab Data Lab results reviewed: Yes I reviewed the patient's lab results. Orders (Tests/Meds): ED MEDICATIONS Discontinued Medications Generic Name Dose Route Start Last Admin Trade Name Freq PRN Reason Stop Dose Admin Acetaminophen 1,000 mg 06/30/24 20:35 06/30/24 20:46 Acetaminophen 500mg Tab PO 06/30/24 20:36 1,000 mg ONCE ONE Administration Gabapentin 300 mg 06/30/24 21:21 06/30/24 21:32 Gabapentin 300mg Capsule PO 06/30/24 21:22 Not Given ONCE ONE Ketorolac Tromethamine 30 mg 06/30/24 20:35 06/30/24 20:46 Ketorolac 30mg/Ml Vial IM 06/30/24 20:36 30 mg ONCE ONE Administration Lidocaine 1 each 06/30/24 20:35 06/30/24 20:46 Lidocaine 5% Transdermal Patch TP 06/30/24 20:36 1 each ONCE ONE Administration Methocarbamol 500 mg 06/30/24 20:35 06/30/24 20:46 Methocarbamol 500mg Tablet PO 06/30/24 20:36 500 mg ONCE ONE Administration Prednisone 40 mg 06/30/24 21:48 06/30/24 21:51 Prednisone 20mg Tab PO 06/30/24 21:49 40 mg ONCE ONE Administration Medical Decision Narrative: In summary, this patient is a 33-year-old female presenting to the Emergency Department for evaluation of mid back pain. Differential diagnoses considered include but are not limited to musculoskeletal strain/pain, disc herniation, thoracic radiculopathy, lumbar radiculopathy. Ruling out the most morbid conditions drove assessment. It should be noted patient's history includes degenerative disc disease which is not at goal therapy. This complicates all aspects of care by increasing patient's risk for morbidity. On exam, the patient is lying in bed. She is neurologically intact in her lower extremities with no alarm findings suggestive of any acute cauda equina syndrome or spinal cord compression. She has right paraspinal muscle tenderness to palpation and hypertonicity with no midline bony tenderness. Cardiopulmonary exam is reassuring with normal lung sounds bilaterally. I considered obtaining imaging, such as CT scans of the spine as well as chest x-ray, however based on reassuring exam and history and shared decision-making with the patient, we elected to defer imaging at this time as it would likely not change attendant. Patient was given oral Tylenol, IM Toradol, oral Robaxin, topical Lidoderm patch for symptomatic improvement of pain On reassessment, patient is resting comfortably remains neurologically intact. She states she had some improvement. I gave her oral steroid for further symptomatic improvement. At this time given that she is neurologically intact, I feel that she is appropriate for discharge home with prescriptions for Robaxin, naproxen, prednisone, and instructions for very close follow-up. She was given strict return precautions and was discharged after all questions were answered. Critical Care Critical Care Time Critical Care Time: No
[2024-06-30] MEDS: predniSONE 20MG TAB 40 MG PO (21:51)
[2024-06-30 22:06] VITALS: BP 95/71; PULSE 69; RESP 18; TEMP 36.8; O2SAT 100
== END 2024-06-30 22:10 | disposition home or self-care (01) ==
PROVIDERS: Emergency Provider Emergency Medicine; PCP Nurse Practitioner
DX: J06.9 Acute upper respiratory infection, unspecified (principal); S39.012A Strain of muscle, fascia and tendon of lower back, initial encounter; R05.9 Cough, unspecified; M54.9 Dorsalgia, unspecified; R11.0 Nausea
CPT/HCPCS: 96372; 99283; J1885

== ENCOUNTER 2024-07-16 02:36 | Emergency (ER) | payer MEDICAID, SELFPAY ==
[2024-07-16 02:38] VITALS: BP 150/104; PULSE 86; RESP 18; TEMP 36.6; O2SAT 100; BMI 35.4
--- NOTE | 2024-07-16 02:48 | CT_ITS ---
PROCEDURE INFORMATION: Exam: CT Abdomen And Pelvis With Contrast Exam date and time: 07/16/2024 3:09 AM Age: 33 years old Clinical indication: Abdominal pain; Generalized; Additional info: Rlq abd pain TECHNIQUE: Imaging protocol: Computed tomography of the abdomen and pelvis with contrast. Radiation optimization: All CT scans at this facility use at least one of these dose optimization techniques: automated exposure control; mA and/or kV adjustment per patient size (includes targeted exams where dose is matched to clinical indication); or iterative reconstruction. Contrast material: ISOVUE; Contrast volume: 75 ml; Contrast route: IV; COMPARISON: CT ANGIO ABDOMEN PELVIS 05/12/2024 6:11 PM FINDINGS: Liver: Normal. No mass. Gallbladder and biliary ducts: Gallbladder is absent. Pancreas: Normal. No ductal dilation. Spleen: Normal. No splenomegaly. Adrenal glands: Normal. No mass. Kidneys and ureters: Normal. No hydronephrosis. Stomach and bowel: Unremarkable. No obstruction. No mucosal thickening. Appendix: No evidence of appendicitis. Intraperitoneal space: Unremarkable. No free air. No significant fluid collection. Vasculature: Unremarkable. No abdominal aortic aneurysm. Lymph nodes: Unremarkable. No enlarged lymph nodes. Urinary bladder: Unremarkable as visualized. Reproductive: Unremarkable as visualized. Bones/joints: Unremarkable. No acute fracture. Soft tissues: Unremarkable. IMPRESSION: No acute intra-abdominal abnormality.
[2024-07-16] MEDS: MORPHINE 4MG/ML SYRINGE 4 MG IV (02:56)
[2024-07-16] MEDS: KETOROLAC 30MG/ML VIAL 30 MG IV (02:56)
[2024-07-16] MEDS: ONDANSETRON 4MG/2ML VIAL 4 MG IV (02:56)
[2024-07-16] MEDS: ACETAMINOPHEN 500MG TAB 1000 MG PO (02:56)
[2024-07-16 03:03] LABS: Microscopic, Urine URINE MICROSCOPIC (MICROSCOPIC)
[2024-07-16 03:03] LABS: Basophils # 0.1 K/mm3 (0-0.2); Eosinophils # 0.4 K/mm3 (0.0-0.4); Eosinophils % 2.5 % (0.1-12.0); Hematocrit 46.7 % (37.0-47.0); Hemoglobin 16.9 g/dL (12.2-16.2); Lymphocytes # 4.3 K/mm3 (0.7-4.5); Lymphocytes % 29.4 % (10-50); Mean Corpuscular HGB Conc 36.2 g/dL (31.8-35.4); Mean Corpuscular Hemoglobin 32.3 pg (27.0-31.2); Mean Corpuscular Volume 89.3 fl (81-99); Mean Platelet Volume 10.3 fl (7.4-10.4); Monocytes # 0.9 K/mm3 (0.1-1.0); Monocytes % 6.1 % (1.7-9.3); Neutrophils # 8.9 K/mm3 (1.8-7.8); Neutrophils % 60.6 % (37.0-80.0); Platelet Count 286 K/mm3 (142-424); Red Blood Count 5.23 M/mm3 (4.20-5.40); Red Cell Distribution Width 11.6 % (11.5-17.5); White Blood Count 14.7 K/mm3 (4.8-10.8)
[2024-07-16 03:04] LABS: Appearance,Urine CLEAR (Clear); Bilirubin,Urine Negative (Negative); Blood, Urine TRACE-I (Negative); Color,Urine YELLOW (Yellow); Glucose,Urine (UA) Negative (Negative); Ketones,Urine Negative (Negative); Leukocyte Esterase,Urine Negative (Negative); Nitrate,Urine Negative (Negative); PH,Urine 5.5 (5.0-8.5); Protein,Urine Negative (Negative); Urobilinogen,Urine 0.2 EU/dl (0.2)
--- NOTE | 2024-07-16 03:05 | PC.NURSE ---
Pt to Ct scan via wheelchair
[2024-07-16 03:07] LABS: Albumin Level 5.1 g/dl (3.5-5.0); Chloride 105 mmol/L (98-107); Potassium 3.9 mmoL/L (3.5-5.1); Sodium 140 mmol/L (136-145)
[2024-07-16 03:09] LABS: Blood Urea Nitrogen 8 mg/dl (7-17); Creatinine Clearance Estimated 142 mL/min (50-200); Estimated Glomerular Filt Rate 82 ml/min (>60); GFR (African American) 99 ML/MIN (>60)
[2024-07-16 03:10] LABS: Alanine Aminotransferase 30 U/L (12-78); Albumin/Globulin Ratio 1.5 (1.1-1.8); Alkaline Phosphatase 92 U/L (38-126); Anion Gap 14.9 mEq/L (5-15); Aspartate Amino Transferase 27 U/L (14-36); Bilirubin,Total 0.5 mg/dl (0.2-1.3); Calcium 9.6 mg/dl (8.4-10.2); Carbon Dioxide 24 mmol/L (22.0-30.0); Globulin 3.4 g/dL (1.3-3.2); Glucose 92 mg/dl (74-100); Total Protein,Serum 8.5 g/dl (6.3-8.2)
[2024-07-16] MEDS: IOPAMIDOL-370 (76%);100ML BOTTLE 75 ML IV (03:12)
[2024-07-16] MEDS: SODIUM CHLORIDE 0.9% 10ML SYR (RAD ONLY) 10 ML IV (03:12)
[2024-07-16 03:13] LABS: Bacteria,Urine Trace /lpf
[2024-07-16 03:16] LABS: HCG Qualitative, Serum Negative (Negative)
--- NOTE | 2024-07-16 03:23 | US_ITS ---
PROCEDURE INFORMATION: Exam: US Pelvis, Transvaginal, Non-Obstetric Exam date and time: 07/16/2024 3:47 AM Age: 33 years old Clinical indication: Pelvic pain; Prior surgery; Surgery date: 6+ months; Surgery type: Ablation x 10 yrs-- no cycle-- ; Additional info: Rlq pain, negative CT, possible torsion TECHNIQUE: Imaging protocol: Real-time transvaginal pelvic (non-obstetric) ultrasound with image documentation. Transvaginal imaging was used for better evaluation of the endometrium, adnexa, and/or cervix. COMPARISON: CT ABDOMEN PELVIS W CON 07/16/2024 3:09 AM FINDINGS: Uterus: Uterus is 7.3 x 3.3 x 4.2 cm. Endometrial stripe is 5 mm. The anterior myometrium is heterogeneous, presumed to represent a scar. There is no focal mass. There are small cysts in the lower uterine segment. Right ovary/adnexa: 2.5 x 2 x 1.8 cm. No mass. Normal ovarian blood flow on color Doppler. Left ovary/adnexa: 3.4 x 2.7 x 1.9 cm. No mass. Normal ovarian blood flow on color Doppler. Urinary bladder: Urinary bladder is limited. Intraperitoneal space: No free fluid. IMPRESSION: No acute findings.
--- NOTE | 2024-07-16 03:53 | PC.NURSE ---
Pt to ultrasound via wheelchair
--- NOTE | 2024-07-16 04:11 | ED_ITS ---
Discharge Plan Disposition Patient Disposition: Home, Self-Care Prescriptions Prescriptions: No Action hyoscyamine sulfate 0.125 mg tablet 0.125 mg PO QID PRN (Reason: abdominal pain) Qty: 60 3RF fluticasone propionate 50 mcg/actuation spray,suspension 1 spray intranasal DAILY Qty: 16 2RF Rx Instructions: administer into each nostril topiramate 100 mg tablet 100 mg PO BID Qty: 180 1RF venlafaxine 150 mg capsule,extended release 24hr 150 mg PO DAILY Qty: 90 1RF trazodone 100 mg tablet 100 mg PO HS Qty: 90 1RF albuterol sulfate 90 mcg/actuation HFA aerosol inhaler 2 puff inhalation Q4-6H PRN (Reason: shortness of breath or wheezing) Qty: 8.5 0RF sodium,potassium,mag sulfates [Suprep Bowel Prep Kit] 17.5-3.13-1.6 gram recon soln See Rx Instructions PO .COMPLEX Qty: 354 0RF Rx Instructions: DILUTE; drink full amount early evening before AND next morning at least 4-5 hr before procedure; follow w 960 mL water PO methocarbamol 750 mg tablet 750 mg PO Q8H PRN (Reason: pain) Qty: 20 0RF prednisone 20 mg tablet 40 mg PO DAILY 4 Days Qty: 8 0RF naproxen 500 mg tablet 500 mg PO BID Qty: 20 0RF Referrals Follow up/Referrals: Nanette Funez APRN [Primary Care Provider] - See instructions Activity Restrictions/Add. Instructions Additional Instructions/Restrictions: Please follow-up with your primary care provider. Please return to the emergency department if you develop any new or worsening symptoms or become concerned for your health. Clinical Impressions Clinical Impression: Abdominal pain, RLQ, Pelvic pain Instructions Patient Instructions: DI for Acute Abdominal Pain Print Language Print Language: Latvian Discharge ED Provider: Petr Villaseñor Adult HPI General Chief complaint: Abdominal Pain Stated complaint: abd pain Time Seen by Provider: 07/16/24 02:40 Mode of Arrival: Ambulatory Source of Information: Patient Limitations: No Limitations Description of Symptoms (Recalled from ER Triage Doc. by RN): Patient states she has lower abdominal pain that started around 4pm today. States she is also experiencing urinary frequency. States she has colitis and is getting a scope done on . She took a robaxin around 4:30pm because she thought it was a muscle in her abdomen causing the pain. History of Present Illness HPI narrative: 33-year-old female with onset of past medical history, history of uterine ablation, presents for right lower quadrant pain. She reports that started around 430, is sharp, severe. Reports it is 15 out of 10. Some Tylenol and muscle relaxer at home without improvement. She reports some urinary frequency but denies any dysuria. 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 She denies any colitis like symptoms recently and reports this pain is very different than normal for her. She does report that she had a little bit of clear foul-smelling discharge from the vagina today, reports it does not seem like a yeast infection. Related Data Previous Rx's ?Medication ?Instructions ?Recorded albuterol sulfate 90 mcg/actuation 2 puff inhalation Q4-6H PRN 05/03/24 aerosol inhaler shortness of breath or wheezing #8.5 grams topiramate 100 mg tablet 100 mg PO BID #180 tabs 05/03/24 trazodone 100 mg tablet 100 mg PO HS #90 tabs 05/03/24 venlafaxine 150 mg 150 mg PO DAILY #90 caps 05/03/24 capsule,extended release 24 hr fluticasone propionate 50 1 spray intranasal DAILY #16 grams 06/15/24 mcg/actuation nasal spray,suspension hyoscyamine sulfate 0.125 mg tablet 0.125 mg PO QID PRN abdominal pain 06/21/24 #60 tabs methocarbamol 750 mg tablet 750 mg PO Q8H PRN pain #20 tabs 06/30/24 naproxen 500 mg tablet 500 mg PO BID #20 tabs 06/30/24 prednisone 20 mg tablet 40 mg (2 x 20 mg) PO DAILY 4 days 06/30/24 #8 tabs sodium,potassium,mag sulfates 17.5 See Rx Instructions PO .COMPLEX 07/06/24 gram-3.13 gram-1.6 gram oral soln #354 mL (Suprep Bowel Prep Kit) Allergies Allergy/AdvReac Type Severity Reaction Status Date / Time cephalexin (From Keflex) Allergy Hives Verified 06/15/24 13:48 amoxicillin (From Augmentin) AdvReac Vomiting Verified 06/15/24 13:48 clavulanic acid (From AdvReac Vomiting Verified 06/15/24 13:48 Augmentin) [facility] Disclaimer: The information contained in this section may have been updated after the patient was seen, as this information can be updated by other users. Medical History Wolfgang blood in stool Depression Anxiety Surgical History S/P lumbar discectomy S/P section S/P cholecystectomy Family History Grandfather Cancer Other No significant family history Social History Smoking Status: Current every day smoker alcohol intake: current current occupational status: employed Travel in the last 8 weeks: None Have you lived/traveled outside US in past 30 days?: No Contact w/someone who lives/traveled outside US past 30 days?: No Exposure to someone with infectious disease in past 14 days?: No Do you have a fever (greater than 100.4 F or 38 C)?: No Have you tested positive for COVID-19: No Exposed to someone with COVID-19 in past 14 days?: No Do you have a sore throat?: No Do you have a cough?: No Do you have any weakness?: No Do you have any diarrhea?: No Are you experiencing any unusual bleeding?: No Do you have any muscle aches/pain?: No Do you have any abdominal pain?: Yes Are you experiencing loss of taste or smell?: No Other Medical History Have you received the Pneumonia Vaccine: No ROS Obtained: Yes All systems reviewed & no additional complaints except as documented Physical Exam General General appearance: alert and in no apparent distress Head Head exam: atraumatic and normocephalic Eye Eye exam: Present normal appearance, PERRL and EOMI ENT ENT exam: Present normal oropharynx and normal external ear exam Neck Neck exam: Present normal inspection and full ROM Chest Chest inspection: Present normal inspection and symmetric chest wall rise; Absent tenderness Respiratory Respiratory exam: Present normal lung sounds bilaterally; Absent respiratory distress Cardiovascular Cardiovascular exam: Present regular rate and normal rhythm Abdominal Exam Abdominal exam: Present soft and tenderness (Moderate right lower quadrant); Absent distention or guarding Extremities Exam Extremities exam: Present normal inspection; Absent edema or joint swelling Back Exam Back exam: Present normal inspection; Absent tenderness Neurological Exam Neurological exam: Present alert and oriented X3; Absent motor sensory deficit Psychiatric Psychiatric exam: Present normal affect and normal mood Skin Skin exam: Present warm, dry and normal color Lymphatic Lymphatic Findings: no adenopathy Medical Decision Making Medical Records Medical records reviewed: Yes I reviewed the patient's medical records. Screening: Per USPSTF and CDC recommendations, given the prevalence of disease in our region, it is our hospital?s policy to screen for HIV and viral Hepatitis for all patients aged 18 and over and those with ongoing risk factors. Harmeet Inquiry Pt receiving controlled substance: No Harmeet was queried for this patient: No Vital Signs: 07/16/24 02:38 Temperature 97.8 F Temperature Source Oral Pulse Rate [Right Radial] 86 Respiratory Rate 18 Blood Pressure [Right Arm] 150/104 H Blood Pressure Mean [Right Arm] 119 Blood Pressure Source [Right Arm] Automatic Cuff Blood Pressure Position [Right Arm] Supine 02 Sat by Pulse Oximetry 100 Oxygen Delivery Method Room Air Lab Data Lab results reviewed: Yes I reviewed the patient's lab results. Lab Results 07/16/24 02:50: WBC 14.7 H, RBC 5.23, Hgb 16.9 H, Hct 46.7, MCV 89.3, MCH 32.3 H , MCHC 36.2 H, RDW 11.6, Plt Count 286, MPV 10.3, Neut % (Auto) 60.6, Lymph % (Auto) 29.4, Metcalfe % (Auto) 6.1, Eos % (Auto) 2.5, Baso % (Auto) 1.0, Neut # (Auto) 8.9 H, Lymph # (Auto) 4.3, Metcalfe # (Auto) 0.9, Eos # (Auto) 0.4, Baso # (Auto) 0.1, Sodium 140, Potassium 3.9, Chloride 105, Carbon Dioxide 24, Anion Gap 14.9, BUN 8, Creatinine 0.80, Estimated Creat Clear 142, Estimated GFR 82, Est GFR ( Amer) 99, Glucose 92, Calcium 9.6, Total Bilirubin 0.5, AST 27, ALT 30, Alkaline Phosphatase 92, Total Protein 8.5 H, Albumin 5.1 H, Globulin 3.4 H, Albumin/Globulin Ratio 1.5, Serum HCG, Qual Negative 07/16/24 02:52: Urine Color Yellow, Urine Appearance Clear, Urine pH 5.5, Ur Specific [place] 1.020, Urine Protein Negative, Urine Glucose (UA) Negative, Urine Ketones Negative, Urine Blood Trace-i, Urine Nitrate Negative, Urine Bilirubin Negative, Urine Urobilinogen 0.2, Ur Leukocyte Esterase Negative, Urine RBC None, Urine WBC None, Ur Squamous Epith Cells 3-5, Urine Bacteria Trace 07/16/24 02:50 07/16/24 02:50 Orders (Tests/Meds): ED MEDICATIONS Discontinued Medications Generic Name Dose Route Start Last Admin Trade Name Freq PRN Reason Stop Dose Admin Acetaminophen 1,000 mg 07/16/24 02:47 07/16/24 02:56 Acetaminophen 500mg Tab PO 07/16/24 02:48 1,000 mg ONCE ONE Administration Iopamidol 75 ml 07/16/24 03:11 07/16/24 03:12 Iopamidol-370 (76%);100ml Bottle IV 07/16/24 03:12 75 ml ONCE ONE Administration Ketorolac Tromethamine 30 mg 07/16/24 02:47 07/16/24 02:56 Ketorolac 30mg/Ml Vial IV 07/16/24 02:48 30 mg ONCE ONE Administration Morphine Sulfate 4 mg 07/16/24 02:47 07/16/24 02:56 Morphine 4mg/Ml Syringe IV 07/16/24 02:48 4 mg ONCE ONE Administration Ondansetron HCl 4 mg 07/16/24 02:47 07/16/24 02:56 Ondansetron 4mg/2ml Vial IV 07/16/24 02:48 4 mg ONCE ONE Administration Sodium Chloride 10 ml 07/16/24 03:11 07/16/24 03:12 Sodium Chloride 0.9% 10ml Syr (Rad Only) IV 07/16/24 03:12 10 ml ONCE ONE Administration ORDERS Category Date Time Status CT abdomen pelvis w con Stat Cat Scan 07/16/24 02:48 Completed US transvaginal Stat Exams 07/16/24 03:23 Taken CBC w/Auto Diff [Complete Blood Count Auto Diff] Stat Lab 07/16/24 02:50 Completed CMP [Comprehensive Metabolic Panel] Stat Lab 07/16/24 02:50 Completed HCG Qualitative, Serum Stat Lab 07/16/24 02:50 Completed UA [Urinalysis and Microscopic] Stat Lab 07/16/24 02:52 Completed Medical Decision Narrative: 33-year-old female with history of uterine ablation and colitis presents for severe right lower quadrant pain. History was obtained via interactive discussion with patient, family, chart review. On arrival, patient is [afebrile, hemodynamically stable, satting appropriately, alert, oriented x4, GCS 15], moving all extremities spontaneously. Full physical exam performed and significant for moderate right lower quadrant tenderness Differential includes but is not limited to appendicitis, colitis, ovarian torsion, mittelschmerz, PID, UTI, kidney stone. Patient was given morphine, Zofran, Tylenol Toradol for symptomatic management and correction of underlying abnormalities. Workup initiated including CBC CMP UA gonorrhea chlamydia CT abdomen pelvis with IV contrast. On re-evaluation, patient [remains afebrile, HD stable.] Continues to have significant pain. Laboratory workup independently interpreted by me and significant for no significant leukocytosis, negative test, urine without evidence of infection. Imaging independently interpreted by me and significant for no evidence of appendicitis, kidney stone, colonic stranding etc. See radiology read for full review of final results. Given rotation, I cannot satisfactorily rule out torsion with a CT scan. Transvaginal ultrasound was ordered to assess. On my independent interpretation, no evidence of acute torsion or other significant pathology within the pelvis on transvaginal ultrasound. I had a interactive discussion with patient regarding presentation. No evidence of emergent pathology at this time. She reports that she had significant pain with insertion of the transvaginal wand. I offered patient a pelvic exam for further assessment, she reports that she has a family doctor appointment in 2 days and would prefer to be assessed by her female family doctor instead. Patient was given additional medication for pain and was discharged in stable condition with return precautions. Procedures Risk/Benefits of Procedure(s) Were Explained: Yes Critical Care Critical Care Time Critical Care Time: No
[2024-07-16 04:27] VITALS: BP 135/91; PULSE 62; RESP 18; TEMP 36.7; O2SAT 98
[2024-07-16] MEDS: OXYCODONE 5MG IMMEDIATE RELEASE TABLET 5 MG PO (04:28)
[2024-07-19 05:24] LABS: Neisseria gonorrhoeae, NAA Negative (Negative)
== END 2024-07-16 04:32 | disposition home or self-care (01) ==
PROVIDERS: Emergency Provider Emergency Medicine; PCP Nurse Practitioner
DX: R10.13 Epigastric pain (principal); R35.0 Frequency of micturition; N89.8 Other specified noninflammatory disorders of vagina; R10.2 Pelvic and perineal pain; Z72.0 Tobacco use
CPT/HCPCS: 74177; 76830; 80053; 81001; 84703; 85025; 87491; 87591; 96374; 96375; 99285; J1885; J2270; J2405; Q9967

== ENCOUNTER 2024-07-20 11:27 | Day surgery (SDC) | payer MEDICAID, SELFPAY ==
--- NOTE | 2024-07-20 12:43 | P.PNANES_ITS ---
[facility] Disclaimer: The information contained in this section may have been updated after the patient was seen, as this information can be updated by other users. Medical History Wolfgang blood in stool Depression Anxiety Surgical History S/P lumbar discectomy S/P section S/P cholecystectomy Family History Grandfather Cancer Other No significant family history Social History Smoking Status: Current every day smoker alcohol intake: current substance use type: denies use current occupational status: employed Travel in the last 8 weeks: None [facility] Anesthesia Checklist Patient Identification Patient Identification: Arm Band and Verbal (Name & ) Structural Data Admitted From: Home Planned Operative Procedure/s: colonoscopy Consent for Planned Operative Procedure(s) Verified: Yes Verified Documents: Surgical Consent NPO Status Verified Time NPO: 00:00 Additional verifications Patient : No Anesthesia Reactions: No Hx Blood Transfusions: No Blood Transfusion Reaction: No Previous Colonoscopy: No Cardiovascular Assessment Heart Sounds: S1 & S2 Pulse Strength: Baseline Pulse Rhythm: Regular Peripheral Edema: No Airway Assessment Mallampati Score:: Class I C-Spine Mobility Assessed: Yes TMJ Mobility Assessed: Yes Dentition: Good Dentition Neurological Assessment Level of Consciousness: Awake, Alert and Appropriate Hx Seizures: No Numbness or tingling in extremities: No Anesthesia Plan Anesthesia Risk discussed: Yes Anesthesia Plan: Verified ASA Class: II Anesthesia Type: MAC
[2024-07-20 12:44] VITALS: BP 120/86; PULSE 73; RESP 16; TEMP 36.7; O2SAT 100; BMI 35.9
--- NOTE | 2024-07-20 13:49 | EXP.HP ---
History of Present Illness *Admission Date: 07/20/24 *Reason for visit:: Bloody diarrhea/urgency/colitis *History of present illness: Mrs. Emery is a 33-year-old female who is here for diagnostic colonoscopy secondary to bloody diarrhea, urgency, cramps and CAT scan showing pancolitis. The examination is deemed medically necessary for diagnostic colonoscopy. The patient has been seen, interviewed and examined prior to the procedure by both myself and the anesthesia provider. [facility] Disclaimer: The information contained in this section may have been updated after the patient was seen, as this information can be updated by other users. Medical History Wolfgang blood in stool Depression Anxiety Surgical History S/P lumbar discectomy S/P section S/P cholecystectomy Family History Grandfather Cancer Other No significant family history Social History (Updated 07/20/24 @ 12:45 by Hernando Farrell CRNA) Smoking Status: Current every day smoker alcohol intake: current substance use type: denies use current occupational status: employed Travel in the last 8 weeks: None Have you lived/traveled outside US in past 30 days?: No Contact w/someone who lives/traveled outside US past 30 days?: No Exposure to someone with infectious disease in past 14 days?: No Do you have a fever (greater than 100.4 F or 38 C)?: No Have you tested positive for COVID-19: No Exposed to someone with COVID-19 in past 14 days?: No Do you have a sore throat?: No Do you have a cough?: No Do you have any weakness?: No Do you have any diarrhea?: No Are you experiencing any unusual bleeding?: No Do you have any muscle aches/pain?: No Do you have any abdominal pain?: No Are you experiencing loss of taste or smell?: No Other Medical History Have you received the Pneumonia Vaccine: No Review of Systems Review of Systems Review of systems (narrative): Negative *Cardiovascular Comments: Negative *Gastrointestinal Comments: Negative *Genitourinary Comments: Negative *Musculoskeletal Comments: Negative *Neurologic Comments: Negative Meds Home Medications and Allergies Home Medications ?Medication ?Instructions ?Recorded ?Confirmed ?Type albuterol sulfate 90 mcg/actuation 2 puff inhalation Q4-6H PRN 05/03/24 07/20/24 Rx aerosol inhaler shortness of breath or wheezing #8.5 grams topiramate 100 mg tablet 100 mg PO BID #180 tabs 05/03/24 07/20/24 Rx trazodone 100 mg tablet 100 mg PO HS #90 tabs 05/03/24 07/20/24 Rx venlafaxine 150 mg 150 mg PO DAILY #90 caps 05/03/24 07/20/24 Rx capsule,extended release 24 hr New Prescriptions to Start Prescriptions: Allergies Allergy/AdvReac Type Severity Reaction Status Date / Time cephalexin (From Keflex) Allergy Hives Verified 07/20/24 12:42 clarithromycin (From Biaxin) Allergy Hives Verified 07/20/24 12:42 amoxicillin (From Augmentin) AdvReac Vomiting Verified 07/20/24 12:42 clavulanic acid (From AdvReac Vomiting Verified 07/20/24 12:42 Augmentin) Exam Data for Last 24 hours Vital signs and Labs for Last 24 Hours: Temp Pulse Resp BP Pulse Ox O2 Del Method 98.0 F 73 16 120/86 100 Room Air 07/20/24 12:44 07/20/24 12:44 07/20/24 12:44 07/20/24 12:44 07/20/24 12:44 07/20/24 12:44 I & O for Last 24 hours: Intake & Output 07/17/24 07/18/24 07/19/24 07/20/24 23:59 23:59 23:59 23:59 Weight 203 lb *Routine HEENT Exam Head: Present normocephalic Eye: Present EOMI and PERRL ENT: Present mucous membranes moist *Routine Neck Exam Neck: Present supple *Routine Respiratory Exam Respiratory: Present CTA bilaterally *Routine Cardiovascular Exam Cardiovascular: Present RRR *Routine Abdominal Exam Abdominal: Present soft and normoactive bowel sounds; Absent tenderness *Routine Rectal Exam Rectal:: deferred *Routine Genitalia Exam Genitalia:: deferred *Routine Extremities Exam Extremities: Absent cyanosis, clubbing or edema *Routine Skin Exam Skin: Present warm; Absent rash *Routine Neurological Exam Neurological: Present alert and oriented X3 Assessment and Plan *Assessment and plan (1) Diarrhea: Status: Acute Category: Medical Code(s): R19.7 - Diarrhea, unspecified (2) Wolfgang blood in stool: Status: Acute Category: Medical Code(s): K92.1 - Melena (3) Abdominal cramps: Status: Acute Category: Medical Code(s): R10.9 - Unspecified abdominal pain (4) Abnormal CT scan, colon: Status: Acute Category: Medical Code(s): R93.3 - Abnormal findings on diagnostic imaging of other parts of digestive tract (5) Colitis: Status: Acute Category: Medical Code(s): K52.9 - Noninfective gastroenteritis and colitis, unspecified Plan A/P: 1. Bloody diarrhea with abdominal cramps and CAT scan showing evidence of pancolitis is the preprocedural diagnosis. The patient will be anesthetized/sedated using MAC sedation. The patient has been seen and examined. Cardiac and lung assessment prior to the examination is stable. Proceed with planned diagnostic colonoscopy
[2024-07-20 13:53] VITALS: O2SAT 100
--- NOTE | 2024-07-20 14:01 | P.PCN_ITS ---
[facility] Procedure Note Date: 07/20/24 Time: 14:15 Procedure Note:: Colonoscopy Procedure Report: Colonoscopy with cold biopsies and monopolar ablation/coagulation of internal hemorrhoids Endoscopist: Joe Szymanski II, MD Referring physician: GOOD Ladd Date of Procedure: July 20, 2024 Equipment: Olympus 190 variable stiffness pediatric colonoscope Sedation: MAC sedation Indication: Ms. Emery is a 33-year-old female who states that she began to have bloody diarrhea 6 months ago with crampy abdominal discomfort and slimy mucus with her stools. Her bowel movements are mostly loose. She did go to the emergency department in April and had a CAT scan that showed pancolitis. She did not improve with Flagyl. She did have cholecystectomy a year ago. She reports 5-6 bloody stools daily with crampy abdominal discomfort in the left upper abdomen. Her maternal grandmother had gastrointestinal cancer in her 60s and her paternal grandfather had throat cancer. Her maternal great aunt had colon cancer diagnosed in her 50s. The patient reports some weight loss which h as stabilized. She did have panendoscopy at age 13 (at [facility]). The patient's stool PCR panel was negative on 06/21/2024. The patient's hemoglobin was 16.9 and hematocrit 46.7 on 07/16/2024. Procedure: Prior to the procedure, a history and physical exam was performed, and patient's medications and allergies were reviewed. The risks, benefits and alternatives of the sedation and procedure were discussed with the patient. All questions were answered and informed consent was obtained. The patient was brought to the procedure room. Patient identification and proposed procedure were verified by the physician and the nurse. The patient was placed in a left lateral decubitus position and the scope was passed under direct vision. Throughout the procedure, the patient's blood pressure, pulse, and oxygen saturations were monitored continuously. The colonoscopy was accomplished without difficulty. The patient tolerated the procedure well. Findings: On digital rectal examination there was normal rectal tone. There were no external hemorrhoids. There was a healed anterior midline anal fissure. The colonoscope was introduced through the anal canal to the rectum and advanced to the cecum. The ileocecal valve and appendiceal orifice were identified. The scope was advanced a short distance into the ileum which appeared grossly normal. The scope was then withdrawn into the colon. The cecum, ascending, transverse, descending, sigmoid and rectum were grossly normal. Random cold biopsies were taken from the right colon to rule out microscopic colitis. There was a normal vascular pattern throughout and no mucosal abnormalities identified. Upon retroflexion within the rectum there were grade 1-2 internal hemorrhoids. The columns of hemorrhoids were ablated/coagulated using monopolar ablation to destruction. The preparation was excellent throughout with Butler Preparation Score of 9. The cecal time was 12 minutes. Impression: 1. Normal colonoscopy with intubation of the terminal ileum 2. Grade 1-2 internal hemorrhoids status post monopolar ablation/coagulation 3. Healed anterior midline anal fissure Plan: I will follow-up the biopsies to rule out microscopic colitis. I do feel that the patient most likely has moderate to severe IBS?diarrhea with hemorrhoidal bleeding. I am going to encourage her to avoid NSAIDs. I will place her on Colestid at bedtime and bulking FiberCon tablets in the morning. She may benefit from dicyclomine. I would avoid Viberzi because of her prior cholecystectomy.
[2024-07-20 14:21] VITALS: BP 98/54; PULSE 71; RESP 18; TEMP 36.3; O2SAT 95
[2024-07-20 14:31] VITALS: BP 92/62; PULSE 57; RESP 18; O2SAT 99
[2024-07-20 14:41] VITALS: BP 109/78; PULSE 57; RESP 18; O2SAT 99
[2024-07-20 15:02] VITALS: BP 110/80; PULSE 70; RESP 18; O2SAT 100
== END 2024-07-20 15:02 | disposition home or self-care (01) ==
PROVIDERS: PCP Nurse Practitioner; Visit Provider Internal Medicine Gastroenterology
PROC: 0DJD8ZZ Inspection of Lower Intestinal Tract, Via Natural or Artificial Opening Endoscopic (ICD-10-PCS; CPT 45378; principal; 2024-07-20 13:00)
DX: R19.7 Diarrhea, unspecified (principal); K92.1 Melena; R10.9 Unspecified abdominal pain; R93.3 Abnormal findings on diagnostic imaging of other parts of digestive tract; K58.0 Irritable bowel syndrome with diarrhea; K64.8 Other hemorrhoids
CPT/HCPCS: 45380; 45388

== ENCOUNTER 2024-07-28 01:17 | Emergency (ER) | payer MEDICAID, SELFPAY ==
[2024-07-28 01:24] VITALS: BP 144/104; PULSE 77; O2SAT 100
[2024-07-28 01:31] VITALS: BP 144/104; PULSE 90; RESP 14; TEMP 36.6; O2SAT 100; BMI 37.5
--- NOTE | 2024-07-28 01:32 | ED_ITS ---
Discharge Plan Disposition Patient Disposition: Home, Self-Care Prescriptions Prescriptions: No Action feqipnvfydkvqfd-bzyohmdjt-NZ 2-30-10 mg/5 mL syrup 10 ml PO Q6H PRN (Reason: cold symptoms) Qty: 200 0RF topiramate 100 mg tablet 100 mg PO BID Qty: 180 1RF venlafaxine 150 mg capsule,extended release 24hr 150 mg PO DAILY Qty: 90 1RF trazodone 100 mg tablet 100 mg PO HS Qty: 90 1RF albuterol sulfate 90 mcg/actuation HFA aerosol inhaler 2 puff inhalation Q4-6H PRN (Reason: shortness of breath or wheezing) Qty: 8.5 0RF colestipol [Colestid] 1 gram tablet 2 g PO .At bedtime Qty: 60 12RF Rx Instructions: Please take 2 tablets p.o. nightly dicyclomine 10 mg capsule 10 mg PO BID Qty: 60 12RF Rx Instructions: Please take 1 tablet p.o. before meals twice daily Referrals Follow up/Referrals: Nanette Funez APRN [Primary Care Provider] - See instructions Activity Restrictions/Add. Instructions Additional Instructions/Restrictions: Please follow-up with your primary care provider. Please return to the emergency department if you develop any new or worsening symptoms or become c oncerned for your health. Clinical Impressions Clinical Impression: Encounter for medical assessment, Rectal pain Print Language Print Language: Maori Discharge ED Provider: Petr Villaseñor General Adult HPI General Chief complaint: Recheck/Abnormal Lab/Rx Stated complaint: lower GI scope, rectal pain, burning, vomiting, Time Seen by Provider: 07/28/24 01:20 History of Present Illness HPI narrative: 33-year-old female with history of bowel, hemorrhoids recent colonoscopy, presents for pressure/bulging sensation in her anus. She reports that when she coughs she feels like something is going to pop out. She has no history of prolapse. She has chronic diarrhea that is unchanged. Her colonoscopy was about a week ago, the symptoms have been worsening over the last day or so. No fever, not significantly painful. Related Data Previous Rx's ?Medication ?Instructions ?Recorded albuterol sulfate 90 mcg/actuation 2 puff inhalation Q4-6H PRN 05/03/24 aerosol inhaler shortness of breath or wheezing #8.5 grams topiramate 100 mg tablet 100 mg PO BID #180 tabs 05/03/24 trazodone 100 mg tablet 100 mg PO HS #90 tabs 05/03/24 venlafaxine 150 mg 150 mg PO DAILY #90 caps 05/03/24 capsule,extended release 24 hr colestipol 1 gram tablet (Colestid) 2 g (2 x 1 gram) PO .At bedtime 07/20/24 #60 tabs dicyclomine 10 mg capsule 10 mg PO BID #60 caps 07/20/24 zqyuhaohrmcyzdx-zlbjdvlxmjimmsx-OG 10 ml PO Q6H PRN cold symptoms 07/27/24 2 mg-30 mg-10 mg/5 mL oral syrup #200 mL Allergies Allergy/AdvReac Type Severity Reaction Status Date / Time cephalexin (From Keflex) Allergy Hives Verified 07/27/24 13:06 clarithromycin (From Biaxin) Allergy Hives Verified 07/27/24 13:06 amoxicillin (From Augmentin) AdvReac Vomiting Verified 07/27/24 13:06 clavulanic acid (From AdvReac Vomiting Verified 07/27/24 13:06 Augmentin) [facility] Disclaimer: The information contained in this section may have been updated after the patient was seen, as this information can be updated by other users. Medical History Wolfgang blood in stool Depression Anxiety Surgical History S/P lumbar discectomy S/P section S/P cholecystectomy Family History Grandfather Cancer Other No significant family history Social History Smoking Status: Current every day smoker alcohol intake: current substance use type: denies use current occupational status: employed Travel in the last 8 weeks: None Have you lived/traveled outside [place] in past 30 days?: No Contact w/someone who lives/traveled outside US past 30 days?: No Exposure to someone with infectious disease in past 14 days?: No Do you have a fever (greater than 100.4 F or 38 C)?: No Have you tested positive for COVID-19: No Exposed to someone with COVID-19 in past 14 days?: No Do you have a sore throat?: No Do you have a cough?: No Do you have any weakness?: No Do you have any diarrhea?: No Are you experiencing any unusual bleeding?: No Do you have any muscle aches/pain?: No Do you have any abdominal pain?: No Are you experiencing loss of taste or smell?: No Other Medical History Have you received the Pneumonia Vaccine: No ROS Obtained: Yes All systems reviewed & no additional complaints except as documented Physical Exam General General appearance: alert and in no apparent distress Head Head exam: atraumatic and normocephalic Eye Eye exam: Present normal appearance, PERRL and EOMI ENT ENT exam: Present normal oropharynx and normal external ear exam Neck Neck exam: Present normal inspection and full ROM Chest Chest inspection: Present normal inspection and symmetric chest wall rise; Absent tenderness Respiratory Respiratory exam: Present normal lung sounds bilaterally; Absent respiratory distress Cardiovascular Cardiovascular exam: Present regular rate and normal rhythm Abdominal Exam Abdominal exam: Present soft; Absent distention, tenderness or guarding Rectal Exam Rectal exam: Present normal inspection and normal rectal tone; Absent mass Extremities Exam Extremities exam: Present normal inspection; Absent edema or joint swelling Back Exam Back exam: Present normal inspection; Absent tenderness Neurological Exam Neurological exam: Present alert and oriented X3; Absent motor sensory deficit Psychiatric Psychiatric exam: Present normal affect and normal mood Skin Skin exam: Present warm, dry and normal color Lymphatic Lymphatic Findings: no adenopathy Medical Decision Making Medical Records Medical records reviewed: Yes I reviewed the patient's medical records. Screening: Per USPSTF and CDC recommendations, given the prevalence of disease in our region, it is our hospital?s policy to screen for HIV and viral Hepatitis for all patients aged 18 and over and those with ongoing risk factors. Harmeet Inquiry Pt receiving controlled substance: No Harmeet was queried for this patient: No Vital Signs: 07/28/24 01:24 07/28/24 01:31 07/28/24 01:39 Temperature 98 F 98 F Temperature Source Oral Pulse Rate 77 90 Pulse Rate [Radial] 90 Respiratory Rate 14 18 Blood Pressure 144/104 H 144/104 H Blood Pressure [Right Arm] 144/104 H Blood Pressure Mean [Right Arm] 117 Blood Pressure Position Sitting Blood Pressure Position [Right Arm] Sitting 02 Sat by Pulse Oximetry 100 100 Oxygen Delivery Method Room Air Room Air Room Air Lab Data Lab results reviewed: Yes I reviewed the patient's lab results. Medical Decision Narrative: 33-year-old female with history of hemorrhoids, IBS, colonoscopy last week presents for sensation of rectal prolapse when she coughs. I reviewed her colonoscopy results, she had hemorrhoids that were ablated but otherwise had a benign colonoscopy. History was obtained via interactive discussion with patient, chart review. On arrival, patient is [afebrile, hemodynamically stable, satting appropriately, alert, oriented x4, GCS 15], moving all extremities spontaneously. Full physical exam performed and significant for normal rectal exam without prolapse, fissure or external hemorrhoids. Differential includes but is not limited to IBS, hemorrhoids, sequela of colonoscopy, rectal prolapse. Rectal exam was performed. Patient coughed and reproduce the sensation that she was having, on exam there are no abnormalities or signs of prolapse. Low concern for emergent pathology at this time. Her sensation changes may be related to recent hemorrhoid ablation. These findings were communicated with patient and she was discharged in stable condition. Procedures Risk/Benefits of Procedure(s) Were Explained: Yes Critical Care Critical Care Time Critical Care Time: No
[2024-07-28 01:39] VITALS: BP 144/104; PULSE 90; RESP 18; TEMP 36.6; O2SAT 100
== END 2024-07-28 01:40 | disposition home or self-care (01) ==
PROVIDERS: Emergency Provider Emergency Medicine; PCP Nurse Practitioner
DX: K62.89 Other specified diseases of anus and rectum (principal)
CPT/HCPCS: 99282

== ENCOUNTER 2024-08-14 13:05 | Outpatient (POV) | payer MEDICAID, SELFPAY ==
--- NOTE | 2024-08-14 13:35 | A.OFFVIS_ITS ---
HPI Data of Consult Patient: new to practice Consult date: 08/14/24 Requesting Physician: Mounika De Luna APRN Primary Care Provider: Nanette Funez APRN Consult Narrative Reason for consult: Low back pain, bilateral leg pain History of present illness: Ms. Emery is a 33 year old female who presents today as a new patient. She is a referral from [facility]. Care in [place]. Today she rates her pain a 8 out of 10. She states she has been having terrible pain in her low back as well as leg issues for the last 6 months. Patient denies any specific trauma or injury that initially started the symptoms. Patient states they are just very severe and do interfere with her ability perform activities of daily living such as cooking and cleaning. Patient does state that her legs just feel so weak and even when she goes to lift them she feels like she has tremors. Patient does state they seem worse at night and that she does have charley horses. Patient does state in past she has had 2 discectomies at [facility] 2019 and 2021. Patient has tried physical therapy but this made her symptoms worse. Patient has also had different injections including epidurals and sacroiliac joint injections. She states they would help some however were often very temporary. Patient states that she ended up slipping down her stairs a couple of weeks ago and had a CT there in [place] that she does have the results on her phone. Patient has tried multiple medications including Tylenol, ibuprofen, naproxen, diclofenac, meloxicam and multiple muscle relaxers with minimal improvement. She states that they tried her on Lyrica and gabapentin and that she could not tolerate either of these medications due to feeling drunk and hung over. Patient states she has had Flexeril, Robaxin, tizanidine and baclofen. Patient states she is interested in any help we may be able to provide. Patient states the symptoms are constant. Her Harmeet has been reviewed and is appropriate. Patient has been recently given [place]. CC: Mounika De Luna APRN [facility] Disclaimer: The information contained in this section may have been updated after the patient was seen, as this information can be updated by other users. Medical History Wolfgang blood in stool Depression Anxiety Surgical History S/P lumbar discectomy S/P section S/P cholecystectomy Family History Grandfather Cancer Other No significant family history Social History Smoking Status: Current every day smoker alcohol intake: current substance use type: denies use current occupational status: employed Travel in the last 8 weeks: None Review of Systems Review of Systems Review of systems:: pertinent systems reviewed and negative unless documented below Review of systems (narrative): Review of Systems: General: No recent weight changes, no fever, no sleep disturbances Respiratory: No cough, no shortness of air, no recurring pulmonary infections Cardiovascular/peripheral vascular: No chest pain, no palpitations, no edema, no shortness of breath Gastrointestinal: No new onset incontinence, normal bowel movements reported Genitourinary: No new onset incontinence Musculoskeletal: Low back pain, bilateral leg pain, cramping Psychiatric: [Normal mood/affect] Neurological: [Denies weakness in extremities], [denies balance issues] Meds Home Medications and Allergies Home Medications ?Medication ?Instructions ?Recorded ?Confirmed ?Type albuterol sulfate 90 mcg/actuation 2 puff inhalation Q4-6H PRN 05/03/24 07/27/24 Rx aerosol inhaler shortness of breath or wheezing #8.5 grams topiramate 100 mg tablet 100 mg PO BID #180 tabs 05/03/24 07/27/24 Rx trazodone 100 mg tablet 100 mg PO HS #90 tabs 05/03/24 07/27/24 Rx venlafaxine 150 mg 150 mg PO DAILY #90 caps 05/03/24 07/27/24 Rx capsule,extended release 24 hr colestipol 1 gram tablet (Colestid) 2 g (2 x 1 gram) PO .At bedtime 07/20/24 07/27/24 Rx #60 tabs dicyclomine 10 mg capsule 10 mg PO BID #60 caps 07/20/24 07/27/24 Rx rtixnibcpzxswci-nhnyzvtrqlroqfw-CD 10 ml PO Q6H PRN cold symptoms 07/27/24 07/27/24 Rx 2 mg-30 mg-10 mg/5 mL oral syrup #200 mL New Prescriptions to Start Prescriptions: Allergies Allergy/AdvReac Type Severity Reaction Status Date / Time cephalexin (From Keflex) Allergy Hives Verified 07/27/24 13:06 clarithromycin (From Biaxin) Allergy Hives Verified 07/27/24 13:06 amoxicillin (From Augmentin) AdvReac Vomiting Verified 07/27/24 13:06 clavulanic acid (From AdvReac Vomiting Verified 07/27/24 13:06 Augmentin) Objective Narrative: Physical Exam: General: Alert and oriented x3, no acute distress, pleasant and cooperative Lungs: Respirations even and unlabored, symmetrical chest expansion Eyes: PERRL Musculoskeletal: Flexion and extension of lumbar [spine] somewhat guarded secondary to pain, [antalgic gait noted] point tenderness along left SI with positive left Mark's, Dannie's, Gaenslen's, compression and distraction exam Neurological: Speech clear, no gross sensory deficit Additional findings Additional findings: CT imaging Findings no acute spine fracture or traumatic malalignment. Paraspinous soft tissues within normal limits. Mild broad-based disc bulge at L3-L4 and L4-L5 Assessment and Plan *Assessment and plan (1) Low back pain: Status: Acute Category: Medical Code(s): M54.50 - Low back pain, unspecified (2) Bilateral leg pain: Status: Acute Category: Medical Code(s): M79.604 - Pain in right leg; M79.605 - Pain in left leg (3) Leg cramp: Status: Acute Category: Medical Code(s): R25.2 - Cramp and spasm Plan I did discuss with the patient since she has had some injections already including the SI injections that we will hold off on this measure at this time. I did discuss with patient that I would like to order her compounded cream as well as send in a 2-week dose of ropinirole 0.25 mg at bedtime and Celebrex 100 mg daily. Patient is agreeable to this option. I did also discuss at length with the patient that in future and may be very beneficial to send her for referral to Dr. Ferrera for EMG testing due to her continued leg weakness, cramps and pain. We will follow-up with this in future. Patient will return to clinic in 2 weeks for reevaluation of symptoms and plan of care. Patient has been instructed to contact the clinic with any concerns before the next appointment. Dr. Reynaga has reviewed this note and agrees with this plan of care. This note was dictated using voice recognition software and make contain errors or omissions. All injections are used with Lidocaine, Bupivacaine and Depo Medrol. Occasionally urine drug screen is needed to verify patient's compliance with our office pain contract. This is ordered based off specific treatments related to chronic pain with the potential to abuse certain medications.
[2024-08-14 14:21] VITALS: BP 138/90; PULSE 98; RESP 18; O2SAT 98; BMI 37.2
== END 2024-08-14 23:59 | disposition home or self-care (01) ==
PROVIDERS: PCP Nurse Practitioner; Visit Provider Nurse Practitioner Family
DX: M54.50 Low back pain, unspecified (principal); M79.604 Pain in right leg; M79.605 Pain in left leg; R25.2 Cramp and spasm; Z73.89 Other problems related to life management difficulty; F17.200 Nicotine dependence, unspecified, uncomplicated
CPT/HCPCS: 99202; G0463

== ENCOUNTER 2024-08-21 18:37 | Emergency (ER) | payer MEDICAID, SELFPAY ==
[2024-08-21 18:41] VITALS: BP 152/94; PULSE 98; RESP 18; TEMP 36.6; O2SAT 99; BMI 35.9
[2024-08-21 18:52] LABS: Coronavirus 19, PCR Not Detected (NotDetected); Influenza A, PCR Not Detected (NotDetected); Influenza B, PCR Not Detected (NotDetected)
--- NOTE | 2024-08-21 18:55 | ED_ITS ---
<Statement entered by Charlotte Dominugez MD - 08/21/24 23:10> I was consulted by the SANDRA, and we discussed the complexity of the problems being addressed. I approved the treatment and management plan for this patient's care in the emergency department, thus performing a substantive portion of the medical decision making. Charlotte Dominguez MD, FARHAD, FACEP Discharge Plan Disposition Patient Disposition: Home, Self-Care Condition: Good Prescriptions Prescriptions: New methocarbamol 750 mg tablet 750 mg PO Q6H PRN (Reason: muscle spasm) Qty: 20 0RF prednisone 50 mg tablet 50 mg PO DAILY 5 Days Qty: 5 0RF lidocaine 5 % adhesive patch,medicated 1 patch topical DAILY Qty: 30 0RF Rx Instructions: leave on most painful area for up to 12 hrs zruzvvedhyqzahj-qfhajpjsh-HI [Bromfed DM] 2-30-10 mg/5 mL syrup 5 ml PO Q4H PRN (Reason: sinus symptoms) Qty: 118 0RF No Action efdqgkjvlgelkhd-amxvmmmea-EB 2-30-10 mg/5 mL syrup 10 ml PO Q6H PRN (Reason: cold symptoms) Qty: 200 0RF topiramate 100 mg tablet 100 mg PO BID Qty: 180 1RF venlafaxine 150 mg capsule,extended release 24hr 150 mg PO DAILY Qty: 90 1RF trazodone 100 mg tablet 100 mg PO HS Qty: 90 1RF albuterol sulfate 90 mcg/actuation HFA aerosol inhaler 2 puff inhalation Q4-6H PRN (Reason: shortness of breath or wheezing) Qty: 8.5 0RF colestipol [Colestid] 1 gram tablet 2 g PO .At bedtime Qty: 60 12RF Rx Instructions: Please take 2 tablets p.o. nightly dicyclomine 10 mg capsule 10 mg PO BID Qty: 60 12RF Rx Instructions: Please take 1 tablet p.o. before meals twice daily celecoxib [Celebrex] 100 mg capsule 100 mg PO DAILY Qty: 14 0RF ropinirole 0.25 mg tablet 0.25 mg PO HS Qty: 14 0RF Rx Instructions: administer 1-3 hours before bedtime Referrals Follow up/Referrals: Nanette Funez APRN [Primary Care Provider] - See instructions Activity Restrictions/Add. Instructions Additional Instructions/Restrictions: Sent a cough syrup pain along with a Lidoderm patch muscle relaxer and steroids. If you have continued new or worsening signs or symptoms please follow-up closely with your PCP as you may need further workup and imaging primarily an MRI. Clinical Impressions Clinical Impression: Acute low back pain Qualifiers: Back pain laterality: left Sciatica presence: without sciatica Qualified Code(s): M54.50 - Low back pain, unspecified Print Language Print Language: Greenlandic Discharge ED Provider: Charlotte Dominguez General Adult HPI General Chief complaint: PAIN Stated complaint: coughed and bacck popped,legs tingling Time Seen by Provider: 08/21/24 18:54 Mode of Arrival: Ambulatory Source of Information: Patient Description of Symptoms (Recalled from ER Triage Doc. by RN): Pt presents for evaluation of a cough that she has had for three days. Pt states about 1.5 hours ago she was coughing and felt a popping sensation in her lower left back and both legs are tingling and has pain when trying to walk History of Present Illness HPI narrative: Patient presents for evaluation of left low back pain. Patient states that she has had a cough for 3 days and was in the process of having a coughing fit today and she felt a pop in her left low back and her leg went numb . Patient states that the numbness is now gone but she has very intense pain in her left lumbar area. She denies any numbness tingling loss of motor or sensory if no focal neurologic deficits is ambulatory but certain positions make it worse however there is no position of comfort. In regards to her cough she reports it is nonproductive she has no fever chills hemoptysis hematochezia melena alistair rtness of breath nausea vomiting diarrhea. Related Data Previous Rx's ?Medication ?Instructions ?Recorded albuterol sulfate 90 mcg/actuation 2 puff inhalation Q4-6H PRN 05/03/24 aerosol inhaler shortness of breath or wheezing #8.5 grams topiramate 100 mg tablet 100 mg PO BID #180 tabs 05/03/24 trazodone 100 mg tablet 100 mg PO HS #90 tabs 05/03/24 venlafaxine 150 mg 150 mg PO DAILY #90 caps 05/03/24 capsule,extended release 24 hr colestipol 1 gram tablet (Colestid) 2 g (2 x 1 gram) PO .At bedtime 07/20/24 #60 tabs dicyclomine 10 mg capsule 10 mg PO BID #60 caps 07/20/24 dxpcxqtecdsvrjt-hrctmlvjsntimiv-WM 10 ml PO Q6H PRN cold symptoms 07/27/24 2 mg-30 mg-10 mg/5 mL oral syrup #200 mL celecoxib 100 mg capsule (Celebrex) 100 mg PO DAILY #14 caps 08/14/24 ropinirole 0.25 mg tablet 0.25 mg PO HS #14 tabs 08/14/24 kygrdxervxhlisp-nlkywbomcxhzvrw-QI 5 ml PO Q4H PRN sinus symptoms 08/21/24 2 mg-30 mg-10 mg/5 mL oral syrup #118 mL (Bromfed DM) lidocaine 5 % topical patch 1 patch topical DAILY #30 ea 08/21/24 methocarbamol 750 mg tablet 750 mg PO Q6H PRN muscle spasm #20 08/21/24 tabs prednisone 50 mg tablet 50 mg PO DAILY 5 days #5 tabs 08/21/24 Allergies Allergy/AdvReac Type Severity Reaction Status Date / Time cephalexin (From Keflex) Allergy Hives Verified 07/27/24 13:06 clarithromycin (From Biaxin) Allergy Hives Verified 07/27/24 13:06 amoxicillin (From Augmentin) AdvReac Vomiting Verified 07/27/24 13:06 clavulanic acid (From AdvReac Vomiting Verified 07/27/24 13:06 Augmentin) [facility] Disclaimer: The information contained in this section may have been updated after the patient was seen, as this information can be updated by other users. Medical History Wolfgang blood in stool Depression Anxiety Surgical History S/P lumbar discectomy S/P section S/P cholecystectomy Family History Grandfather Cancer Other No significant family history Social History Smoking Status: Current every day smoker alcohol intake: current substance use type: denies use current occupational status: employed Travel in the last 8 weeks: None Have you lived/traveled outside [place] in past 30 days?: No Contact w/someone who lives/traveled outside US past 30 days?: No Exposure to someone with infectious disease in past 14 days?: No Do you have a fever (greater than 100.4 F or 38 C)?: No Have you tested positive for COVID-19: No Exposed to someone with COVID-19 in past 14 days?: No Do you have a sore throat?: No Do you have a cough?: No Do you have any weakness?: No Do you have any diarrhea?: No Are you experiencing any unusual bleeding?: No Do you have any muscle aches/pain?: No Do you have any abdominal pain?: No Are you experiencing loss of taste or smell?: No Other Medical History Have you received the Flu Vaccine for this season: No Have you received the Pneumonia Vaccine: No ROS Obtained: Yes Systems reviewed as appropriate & no additional complaints except as documented Physical Exam General General appearance: alert and in no apparent distress Respiratory Respiratory exam: Present normal lung sounds bilaterally Cardiovascular Cardiovascular exam: Present regular rate Neurological Exam Neurological exam: Present alert and oriented X3 Medical Decision Making Medical Records Medical records reviewed: Yes I reviewed the patient's medical records. Screening: Per USPSTF and CDC recommendations, given the prevalence of disease in our region, it is our hospital?s policy to screen for HIV and viral Hepatitis for all patients aged 18 and over and those with ongoing risk factors. Harmeet Inquiry Pt receiving controlled substance: No Vital Signs: 08/21/24 18:41 Temperature 98 F Temperature Source Oral Pulse Rate [Right] 98 H Respiratory Rate 18 Blood Pressure [Right Arm] 152/94 H Blood Pressure Mean [Right Arm] 113 Blood Pressure Source [Right Arm] Manual Cuff/ Doppler Blood Pressure Position [Right Arm] Sitting 02 Sat by Pulse Oximetry 99 Oxygen Delivery Method Room Air Lab Data Lab results reviewed: Yes I reviewed the patient's lab results. Lab Results 08/21/24 18:45: SARS-CoV-2 (PCR) Not detected, Influenza A Untype (PCR) Not detected, Influenza Type B (PCR) Not detected Orders (Tests/Meds): ED MEDICATIONS Discontinued Medications Generic Name Dose Route Start Last Admin Trade Name Freq PRN Reason Stop Dose Admin Acetaminophen 1,000 mg 08/21/24 19:09 08/21/24 19:25 Acetaminophen 500mg Tab PO 08/21/24 19:10 1,000 mg ONCE ONE Administration Ibuprofen 800 mg 08/21/24 19:09 08/21/24 19:25 Ibuprofen 400 Mg Tablet PO 08/21/24 19:10 800 mg ONCE ONE Administration Lidocaine 1 each 08/21/24 19:09 08/21/24 19:24 Lidocaine 5% Transdermal Patch TD 08/21/24 19:10 1 each ONCE ONE Administration Methocarbamol 500 mg 08/21/24 19:08/21/24 19:25 Methocarbamol 500mg Tablet PO 08/21/24 19:10 500 mg ONCE ONE Administration Prednisone 60 mg 08/21/24 19:09 08/21/24 19:24 Prednisone 20mg Tab PO 08/21/24 19:10 60 mg ONCE ONE Administration ORDERS Category Date Time Status Rapid PCR Covid and Flu A/B Stat Lab 08/21/24 18:45 Completed Medical Decision Narrative: In summary patient is a 33-year-old female who presents to the emergency department for evaluation of left low back pain and cough. Patient is hemodynamically stable with a blood pressure 152/94 heart rate 98 with normal sinus rhythm on bedside monitor breathing 18 times a minute satting at 99% on room air upon arrival, afebrile at 98. Physical exam is remarkable for marked tenderness to palpation in the left lumbar paraspinous musculature but she has no midline spinal tenderness she has no focal neurologic deficits moves all 4 extremities good muscle strength no saddle anesthesia. Breath sounds are clear and equal bilaterally to the bases with adventitious sounds.. Differential diag nosis includes muscle spasm versus muscle tear versus upper or lower respiratory tract infection. Initial workup was considered with labs and imaging however patient is afebrile has no red flags for physical exam findings concerning for acute neurologic deficit thus labs and imaging were deferred except for respiratory panel.. Initial interventions include Tylenol ibuprofen Decadron Robaxin Lidoderm patch. Initial workup reviewed by me and her COVID and flu swabs are negative. Upon repeat evaluation patient reported no improvement after initial intervention. Given this while there remains diagnostic uncertainty and patient did not receive relief she has no concerning findings red flags of any significant neurologic impairment and I have advised the patient via shared decision making discussion to follow-up PCP if she continues to have problems that she likely needs an MRI and further workup. I have sent a prescription of Bromfed into her pharmacy as well as prednisone Robaxin and Lidoderm. Patient verbalized understanding and agreement. Critical Care Critical Care Time Critical Care Time: No
[2024-08-21 19:00] VITALS: BP 135/98; PULSE 86; O2SAT 99
[2024-08-21] MEDS: LIDOCAINE 5% TRANSDERMAL PATCH 1 EACH TD (19:24)
[2024-08-21] MEDS: predniSONE 20MG TAB 60 MG PO (19:24)
[2024-08-21] MEDS: METHOCARBAMOL 500MG TABLET 500 MG PO (19:25)
[2024-08-21] MEDS: IBUPROFEN 400 MG TABLET 800 MG PO (19:25)
[2024-08-21] MEDS: ACETAMINOPHEN 500MG TAB 1000 MG PO (19:25)
[2024-08-21 19:30] VITALS: BP 133/101; PULSE 83; O2SAT 98
[2024-08-21 20:00] VITALS: BP 118/77; O2SAT 96
[2024-08-21 20:30] VITALS: BP 126/91; PULSE 75; O2SAT 98
[2024-08-21 20:38] VITALS: BP 126/90; PULSE 80; RESP 20; TEMP 36.7; O2SAT 99
== END 2024-08-21 20:42 | disposition home or self-care (01) ==
PROVIDERS: Emergency Provider Student in an Organized Health Care Education/Training Program; PCP Nurse Practitioner
DX: M54.50 Low back pain, unspecified (principal); R05.9 Cough, unspecified; R20.2 Paresthesia of skin; Z72.0 Tobacco use
CPT/HCPCS: 87636; 99283

== ENCOUNTER 2024-08-28 13:37 | Outpatient (POV) | payer MEDICAID, SELFPAY ==
--- NOTE | 2024-08-28 14:26 | EXP.PAIN.SOA ---
[facility] Disclaimer: The information contained in this section may have been updated after the patient was seen, as this information can be updated by other users. Medical History Wolfgang blood in stool Depression Anxiety Surgical History S/P lumbar discectomy S/P section S/P cholecystectomy Family History Grandfather Cancer Other No significant family history Social History Smoking Status: Current every day smoker alcohol intake: current substance use type: denies use current occupational status: employed Travel in the last 8 weeks: None PM Subjective & Objective Subjective Subjective:: Patient is a pleasant 33-year-old female who presents today for 2-week follow-up. She does rate her pain today a 9 out of 10. She denies any new falls or injuries. She does state that she is still having the low back pain that does go into her hips with the left side being the worst side. Patient at her last visit was ordered compounded cream however she states that she did not notice significant improvement. Patient was also started on Celebrex 100 mg daily however states that that still seem to bother her stomach. Patient was also given ropinirole 0.25 mg at bedtime. She states that that did seem to help some of her leg cramps. She denies any side effects. Patient does state pain all across to her low back is interfering with her ability to perform activities of daily living such as cooking and cleaning. Patient has tried and continued conservative therapy. Her Harmeet has been reviewed and is appropriate. Review of Systems: General: No recent weight changes, no fever, no sleep disturbances Respiratory: No cough, no shortness of air, no recurring pulmonary infections Cardiovascular/peripheral vascular: No chest pain, no palpitations, no edema, no shortness of breath Gastrointestinal: No new onset incontinence, normal bowel movements reported Genitourinary: No new onset incontinence Musculoskeletal: Low back pain Psychiatric: [Normal mood/affect] Neurological: [Denies weakness in extremities], [denies balance issues] Pain at rest (0-10 scale): 9 Objective Objective:: Physical Exam: General: Alert and oriented x3, no acute distress, pleasant and cooperative Lungs: Respirations even and unlabored, symmetrical chest expansion Eyes: PERRL Musculoskeletal: Flexion and extension of lumbar [spine] somewhat guarded secondary to pain, [antalgic gait noted] point tenderness along bilateral SIs with positive bilateral Mark's, Dannie's, Gaenslen's, compression and distraction exam Neurological: Speech clear, no gross sensory deficit Has patient had previous pain injection?: No Conservative treatment options previously tried: Home exercise plan Length of treatment: Longer than 12 weeks Meds Home Medications and Allergies Home Medications ?Medication ?Instructions ?Recorded ?Confirmed ?Type albuterol sulfate 90 mcg/actuation 2 puff inhalation Q4-6H PRN 05/03/24 08/22/24 Rx aerosol inhaler shortness of breath or wheezing #8.5 grams topiramate 100 mg tablet 100 mg PO BID #180 tabs 05/03/24 08/22/24 Rx trazodone 100 mg tablet 100 mg PO HS #90 tabs 05/03/24 08/22/24 Rx venlafaxine 150 mg 150 mg PO DAILY #90 caps 05/03/24 08/22/24 Rx capsule,extended release 24 hr colestipol 1 gram tablet (Colestid) 2 g (2 x 1 gram) PO .At bedtime 07/20/24 08/22/24 Rx #60 tabs dicyclomine 10 mg capsule 10 mg PO BID #60 caps 07/20/24 08/22/24 Rx ropinirole 0.25 mg tablet 0.25 mg PO HS #14 tabs 08/14/24 08/22/24 Rx wtxgqlevnnocdlo-mrooxvybtvkqedj-UC 5 ml PO Q4H PRN sinus symptoms 08/21/24 08/22/24 Rx 2 mg-30 mg-10 mg/5 mL oral syrup #118 mL (Bromfed DM) lidocaine 5 % topical patch 1 patch topical DAILY #30 ea 08/21/24 08/22/24 Rx prednisone 50 mg tablet 50 mg PO DAILY 5 days #5 tabs 08/21/24 08/22/24 Rx fluticasone propionate 50 intranasal PRN 08/22/24 08/22/24 History mcg/actuation nasal spray,suspension levofloxacin 500 mg tablet 500 mg PO Q24H #10 tabs 08/22/24 08/22/24 Rx metaxalone 800 mg tablet 800 mg PO TID PRN muscle pain #30 08/22/24 08/22/24 Rx tabs omeprazole 40 mg capsule,delayed 40 mg PO DAILY 08/22/24 08/22/24 History release New Prescriptions to Start Prescriptions: Allergies Allergy/AdvReac Type Severity Reaction Status Date / Time cephalexin (From Keflex) Allergy Hives Verified 08/22/24 13:50 clarithromycin (From Biaxin) Allergy Hives Verified 08/22/24 13:50 celecoxib (From Celebrex) AdvReac Unknown GI upset Verified 08/22/24 14:29 NSAIDS (Non-Steroidal AdvReac Unknown GI upset Verified 08/22/24 14:29 Anti-Inflamma amoxicillin (From Augmentin) AdvReac Vomiting Verified 08/22/24 13:50 clavulanic acid (From AdvReac Vomiting Verified 08/22/24 13:50 Augmentin) Assessment and Plan *Assessment and plan (1) Low back pain: Status: Acute Category: Medical Code(s): M54.50 - Low back pain, unspecified (2) Bilateral sacroiliitis: Status: Acute Category: Medical Code(s): M46.1 - Sacroiliitis, not elsewhere classified Plan Patient is experiencing worsening pain along the low back and bilateral hips. They did have limited range of motion of the lumbar spine along with point tenderness along bilateral SI joints and a positive bilateral Mark's, Dannie's, Gaenslen's, compression and distraction exam. I did discuss with the patient that I do believe they would benefit from bilateral SI injections. Risk and benefits were discussed with the patient and they would like to proceed forward with this option. Patient has tried and failed conservative therapy including continued at home stretching exercise for longer than 12 weeks. Patient has not had these injections from our office in the past. Patient has had this pain for longer than 6 months. Patient will be done as a diagnostic injection with less than 1 mL of solution to be injected. If she does get significant relief we will plan on repeating this injection with the plan to possibly proceed forward with a lumbar fusion in the future. I will refill the ropinirole and also send in a new prescription of Skelaxin 800 mg 3 times daily as needed with a 2-week supply. Patient agrees with this plan of care. Patient will be scheduled for bilateral SI injections under fluoroscopy. Patient has been instructed to contact the clinic with any concerns before the next appointment. Dr. Reynaga has reviewed this note and agrees with this plan of care. This note was dictated using voice recognition software and make contain errors or omissions. All injections are used with Lidocaine or Bupivacaine and Depo Medrol.
[2024-08-28 14:49] VITALS: BP 138/94; PULSE 97; RESP 16; O2SAT 100; BMI 37.2
== END 2024-08-28 23:59 | disposition home or self-care (01) ==
PROVIDERS: PCP Nurse Practitioner; Visit Provider Nurse Practitioner Family
DX: M54.50 Low back pain, unspecified (principal); M46.1 Sacroiliitis, not elsewhere classified; F17.200 Nicotine dependence, unspecified, uncomplicated; Z73.89 Other problems related to life management difficulty
CPT/HCPCS: 99212; G0463

== ENCOUNTER 2024-09-06 13:00 | Outpatient (CLI) | payer MEDICAID, SELFPAY ==
[2024-09-06 18:32] LABS: Basophils # 0.1 K/mm3 (0-0.2); Basophils % 1.2 % (0.1-2.0); Eosinophils # 0.2 K/mm3 (0.0-0.4); Eosinophils % 1.9 % (0.1-12.0); Hematocrit 46.8 % (37.0-47.0); Hemoglobin 16.4 g/dL (12.2-16.2); Lymphocytes # 2.9 K/mm3 (0.7-4.5); Lymphocytes % 29.2 % (10-50); Mean Corpuscular Hemoglobin 31.8 pg (27.0-31.2); Mean Corpuscular Volume 90.9 fl (81-99); Mean Platelet Volume 10.4 fl (7.4-10.4); Monocytes # 0.6 K/mm3 (0.1-1.0); Monocytes % 6.4 % (1.7-9.3); Nucleated Red Blood Cells # 0 10^3/uL; Nucleated Red Blood Cells % 0 %; Platelet Count 291 K/mm3 (142-424); Red Blood Count 5.15 M/mm3 (4.20-5.40); Red Cell Distribution Width 12.1 % (11.5-17.5); Red Cell Distribution Width-SD 40.3 fL; White Blood Count 9.8 K/mm3 (4.8-10.8)
[2024-09-06 19:21] LABS: Albumin Level 4.4 g/dl (3.5-5.0); Chloride 105 mmol/L (98-107); Potassium 3.9 mmoL/L (3.5-5.1); Sodium 141 mmol/L (136-145)
[2024-09-06 19:24] LABS: Alanine Aminotransferase 29 U/L (12-78); Albumin/Globulin Ratio 1.3 (1.1-1.8); Alkaline Phosphatase 62 U/L (38-126); Anion Gap 14.9 mEq/L (5-15); Aspartate Amino Transferase 26 U/L (14-36); Bilirubin,Total 0.7 mg/dl (0.2-1.3); Blood Urea Nitrogen 7 mg/dl (7-17); Carbon Dioxide 25 mmol/L (22.0-30.0); Estimated Glomerular Filt Rate 82 ml/min (>60); GFR (African American) 99 ML/MIN (>60); Globulin 3.3 g/dL (1.3-3.2); Total Protein,Serum 7.7 g/dl (6.3-8.2)
[2024-09-06 19:25] LABS: Calcium 9.3 mg/dl (8.4-10.2); Glucose 111 mg/dl (74-100)
== END 2024-09-06 23:59 | disposition home or self-care (01) ==
LOC: LAB.DROPOF 09-07 11:00
PROVIDERS: PCP Nurse Practitioner; Visit Provider Nurse Practitioner
DX: R10.31 Right lower quadrant pain (principal); R31.9 Hematuria, unspecified; Z87.442 Personal history of urinary calculi
CPT/HCPCS: 80053; 85025; 87086

== ENCOUNTER 2024-09-06 18:14 | Emergency (ER) | payer MEDICAID, SELFPAY ==
[2024-09-06 18:21] VITALS: BP 157/108; PULSE 102; O2SAT 100
[2024-09-06 18:28] LABS: Microscopic, Urine URINE MICROSCOPIC (MICROSCOPIC)
[2024-09-06 18:29] VITALS: BP 157/108; PULSE 95; RESP 18; TEMP 36.7; O2SAT 100; BMI 37.0
[2024-09-06 18:30] VITALS: BP 127/97; PULSE 84; O2SAT 99
--- NOTE | 2024-09-06 18:42 | CT_ITS ---
PROCEDURE INFORMATION: Exam: CT Abdomen And Pelvis Without Contrast Exam date and time: 09/06/2024 7:19 PM Age: 33 years old Clinical indication: Abdominal pain; Flank; Right; Additional info: Right flank pain TECHNIQUE: Imaging protocol: Computed tomography of the abdomen and pelvis without contrast. Total images: 330 Radiation optimization: All CT scans at this facility use at least one of these dose optimization techniques: automated exposure control; mA and/or kV adjustment per patient size (includes targeted exams where dose is matched to clinical indication); or iterative reconstruction. COMPARISON: CT ABDOMEN PELVIS W CON 07/16/2024 3:09 AM FINDINGS: Lungs: Lung bases are clear. Heart: Normal heart size. Liver: Mild hepatomegaly at 21 cm. Focal fatty infiltration near the falciform ligament. Otherwise, unremarkable liver. Gallbladder and biliary ducts: Status post cholecystectomy. No biliary ductal dilatation. Pancreas: Normal. No ductal dilation. Spleen: Normal. No splenomegaly. Adrenal glands: Normal. No mass. Kidneys and ureters: 2-3 mm amorphous left intrarenal calculus, axial image 46. No hydronephrosis or perinephric fluid. Unremarkable right kidney. No ureteral stones. Stomach and bowel: Unremarkable stomach and duodenum. No ileus or bowel obstruction. Unremarkable small bowel and terminal ileum. Unremarkable colon and rectum. Appendix: Normal appendix. Intraperitoneal space: Unremarkable. No free air. No significant fluid collection. Vasculature: Nonaneurysmal abdominal aorta. Right pelvic phleboliths. Lymph nodes: Unremarkable. No enlarged lymph nodes. Urinary bladder: Unremarkable as visualized. Reproductive: Physiologic uterus and ovaries. 2 cm left ovarian dominant follicle. No adnexal mass. Bones/joints: Left paracentral disc bulge L4-L5 and L5-S1. No acute osseous abnormality. Minor degenerative endplate spurring lower thoracic levels. Soft tissues: Unremarkable. IMPRESSION: 1. No acute intra-abdominal or pelvic process. 2. Mild hepatomegaly. 3. 2-3 mm amorphous left intrarenal calculus. No hydronephrosis. 4. Left paracentral disc bulges L4-L5 and L5-S1.
[2024-09-06 18:55] LABS: Appearance,Urine CLEAR (Clear); Bilirubin,Urine Negative (Negative); Blood, Urine TRACE-I (Negative); Color,Urine YELLOW (Yellow); Glucose,Urine (UA) Negative (Negative); Ketones,Urine Negative (Negative); Leukocyte Esterase,Urine Negative (Negative); Nitrate,Urine Negative (Negative); Protein,Urine Negative (Negative); Specific Gravity, Urine 1.015 (1.005-1.030); Urobilinogen,Urine 0.2 EU/dl (0.2)
[2024-09-06 18:56] LABS: Basophils # 0.1 K/mm3 (0-0.2); Eosinophils # 0.3 K/mm3 (0.0-0.4); Eosinophils % 2.2 % (0.1-12.0); Hematocrit 45.5 % (37.0-47.0); Hemoglobin 16.3 g/dL (12.2-16.2); Lymphocytes # 3.9 K/mm3 (0.7-4.5); Lymphocytes % 27.2 % (10-50); Mean Corpuscular HGB Conc 35.8 g/dL (31.8-35.4); Mean Corpuscular Hemoglobin 32.1 pg (27.0-31.2); Mean Corpuscular Volume 89.7 fl (81-99); Monocytes # 1.1 K/mm3 (0.1-1.0); Neutrophils # 8.7 K/mm3 (1.8-7.8); Neutrophils % 61.2 % (37.0-80.0); Nucleated Red Blood Cells # 0 10^3/uL; Nucleated Red Blood Cells % 0 %; Platelet Count 292 K/mm3 (142-424); Red Blood Count 5.07 M/mm3 (4.20-5.40); Red Cell Distribution Width 12.1 % (11.5-17.5); Red Cell Distribution Width-SD 39.8 fL; White Blood Count 14.2 K/mm3 (4.8-10.8)
[2024-09-06 18:59] LABS: Albumin Level 4.7 g/dl (3.5-5.0); Chloride 106 mmol/L (98-107)
[2024-09-06 19:00] LABS: HCG Qualitative, Serum Negative (Negative); Potassium 3.7 mmoL/L (3.5-5.1); Sodium 140 mmol/L (136-145)
[2024-09-06] MEDS: LACTATED RINGERS 1000ML 1,000 ML 999 ML IV (19:00)
[2024-09-06] MEDS: KETOROLAC 30MG/ML VIAL 15 MG IV (19:00)
[2024-09-06] MEDS: MORPHINE 4MG/ML SYRINGE 4 MG IV (19:00)
[2024-09-06] MEDS: ONDANSETRON 4MG/2ML VIAL 4 MG IV (19:00)
[2024-09-06 19:02] LABS: Blood Urea Nitrogen 8 mg/dl (7-17); Creatinine Clearance Estimated 148 mL/min (50-200); Estimated Glomerular Filt Rate 82 ml/min (>60); GFR (African American) 99 ML/MIN (>60)
[2024-09-06 19:03] LABS: Alanine Aminotransferase 32 U/L (12-78); Albumin/Globulin Ratio 1.3 (1.1-1.8); Alkaline Phosphatase 72 U/L (38-126); Anion Gap 12.7 mEq/L (5-15); Aspartate Amino Transferase 31 U/L (14-36); Bilirubin,Total 0.5 mg/dl (0.2-1.3); Calcium 9.3 mg/dl (8.4-10.2); Carbon Dioxide 25 mmol/L (22.0-30.0); Globulin 3.5 g/dL (1.3-3.2); Glucose 80 mg/dl (74-100); Total Protein,Serum 8.2 g/dl (6.3-8.2)
--- NOTE | 2024-09-06 19:03 | ED_ITS ---
Discharge Plan Disposition Patient Disposition: Home, Self-Care Prescriptions Prescriptions: New dicyclomine 20 mg tablet 20 mg PO TID PRN (Reason: abdominal pain or spasm) 7 Days Qty: 21 0RF ondansetron 4 mg tablet,disintegrating 4 mg PO Q6H PRN (Reason: nausea and vomiting) 5 Days Qty: 20 0RF No Action fluticasone propionate 50 mcg/actuation spray,suspension 1 spray intranasal DIRECTED PRN (Reason: Allergy Symptoms) Patient Comments: USE 1 SPRAY INTO EACH NOSTRIL DAILY omeprazole 40 mg capsule,delayed release(DR/EC) 40 mg PO DAILY Patient Comments: TAKE 1 CAPSULE BY MOUTH EVERY DAY metaxalone 800 mg tablet 800 mg PO TID PRN (Reason: muscle pain) Qty: 30 1RF topiramate 100 mg tablet 100 mg PO BID Qty: 180 1RF venlafaxine 150 mg capsule,extended release 24hr 150 mg PO DAILY Qty: 90 1RF trazodone 100 mg tablet 100 mg PO HS Qty: 90 1RF albuterol sulfate 90 mcg/actuation HFA aerosol inhaler 2 puff inhalation Q4-6H PRN (Reason: shortness of breath or wheezing) Qty: 8.5 0RF ondansetron HCl 4 mg tablet 4 mg PO Q8H PRN (Reason: nausea and vomiting) Qty: 20 0RF nitrofurantoin monohyd/m-cryst [Macrobid] 100 mg capsule 100 mg PO Q12H 7 Days Qty: 14 0RF Rx Instructions: must administer with a meal/food hyoscyamine sulfate 0.125 mg tablet 0.125 mg PO QID PRN (Reason: diarrhea or abdominal cramping) Qty: 30 0RF tamsulosin 0.4 mg capsule 0.4 mg PO DAILY Qty: 30 0RF colestipol [Colestid] 1 gram tablet 2 g PO .At bedtime Qty: 60 12RF Rx Instructions: Please take 2 tablets p.o. nightly dicyclomine 10 mg capsule 10 mg PO BID Qty: 60 12RF Rx Instructions: Please take 1 tablet p.o. before meals twice daily lidocaine 5 % adhesive patch,medicated 1 patch topical DAILY Qty: 30 0RF Rx Instructions: leave on most painful area for up to 12 hrs [id number]-[id number] [Bromfed DM] 2-30-10 mg/5 mL syrup 5 ml PO Q4H PRN (Reason: sinus symptoms) Qty: 118 0RF metaxalone 800 mg tablet 800 mg PO TID PRN (Reason: muscle pain) Qty: 42 0RF ropinirole 0.25 mg tablet 0.25 mg PO HS Qty: 30 0RF Rx Instructions: administer 1-3 hours before bedtime Referrals Follow up/Referrals: Nanette Funez APRN [Primary Care Provider] - See instructions Joe Szymanski II, MD [Staff Physician] - See instructions Activity Restrictions/Add. Instructions Additional Instructions/Restrictions: There is no definitive explanation for your right flank abdominal pain found on your emergency workup today. As discussed if you continue to have pain in your right upper quadrant that radiating through to your back given your negative workup today I would entertain the diagnosis of a possible ulcer and have given you a referral to Dr. Szymanski. If your symptoms persist I would recommend you follow-up with him to discuss a possible endoscopy. 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 Clinical Impressions Clinical Impression: Right flank pain Instructions Patient Instructions: DI for Acute Abdominal Pain Print Language Print Language: Ivorian Discharge ED Provider: Charlotte Dominguez General Adult HPI General Chief complaint: Abdominal Pain Stated complaint: right side pain and back , headache Time Seen by Provider: 09/06/24 18:19 Mode of Arrival: Ambulatory Source of Information: Patient Description of Symptoms (Recalled from ER Triage Doc. by RN): Patient reports right sided pain that radiates to her back. States that she saw her PCP today and they did blood work, urine test and gave her a shot of toradol. States that her pain has worsened and she has become nauseated with it. History of Present Illness HPI narrative: 33-year-old female presents today with right-sided flank pain radiating through to her back. This been going on since today she went to her primary care doctor had some blood work and urinalysis done and was told she had blood in her urine. States this feels very similar to a kidney stone she had in the past. Has had a cholecystectomy in the past no other organs removed in the past no other significant past medical history. Related Data Home Medications ?Medication ?Instructions ?Recorded ?Confirmed fluticasone propionate 50 1 spray intranasal DIRECTED PRN 08/22/24 09/06/24 mcg/actuation nasal Allergy Symptoms spray,suspension omeprazole 40 mg capsule,delayed 40 mg PO DAILY 08/22/24 09/06/24 release Previous Rx's ?Medication ?Instructions ?Recorded albuterol sulfate 90 mcg/actuation 2 puff inhalation Q4-6H PRN 05/03/24 aerosol inhaler shortness of breath or wheezing #8.5 grams topiramate 100 mg tablet 100 mg PO BID #180 tabs 05/03/24 trazodone 100 mg tablet 100 mg PO HS #90 tabs 05/03/24 venlafaxine 150 mg 150 mg PO DAILY #90 caps 05/03/24 capsule,extended release 24 hr colestipol 1 gram tablet (Colestid) 2 g (2 x 1 gram) PO .At bedtime 07/20/24 #60 tabs dicyclomine 10 mg capsule 10 mg PO BID #60 caps 07/20/24 yevrlqmibnwojiz-defynwxykbmgvhp-VE 5 ml PO Q4H PRN sinus symptoms 08/21/24 2 mg-30 mg-10 mg/5 mL oral syrup #118 mL (Bromfed DM) lidocaine 5 % topical patch 1 patch topical DAILY #30 ea 08/21/24 metaxalone 800 mg tablet 800 mg PO TID PRN muscle pain #30 08/22/24 tabs metaxalone 800 mg tablet 800 mg PO TID PRN muscle pain #42 08/28/24 tabs ropinirole 0.25 mg tablet 0.25 mg PO HS #30 tabs 08/28/24 dicyclomine 20 mg tablet 20 mg PO TID PRN abdominal pain or 09/06/24 spasm 7 days #21 tabs hyoscyamine sulfate 0.125 mg tablet 0.125 mg PO QID PRN diarrhea or 09/06/24 abdominal cramping #30 tabs nitrofurantoin 100 mg PO Q12H 7 days #14 caps 09/06/24 monohydrate/macrocrystals 100 mg capsule (Macrobid) ondansetron 4 mg disintegrating 4 mg PO Q6H PRN nausea and 09/06/24 tablet vomiting 5 days #20 tabs ondansetron HCl 4 mg tablet 4 mg PO Q8H PRN nausea and 09/06/24 vomiting #20 tabs tamsulosin 0.4 mg capsule 0.4 mg PO DAILY #30 caps 09/06/24 Allergies Allergy/AdvReac Type Severity Reaction Status Date / Time cephalexin (From Keflex) Allergy Hives Verified 09/06/24 13:53 clarithromycin (From Biaxin) Allergy Hives Verified 09/06/24 13:53 celecoxib (From Celebrex) AdvReac Unknown GI upset Verified 09/06/24 13:53 NSAIDS (Non-Steroidal AdvReac Unknown GI upset Verified 09/06/24 13:53 Anti-Inflamma amoxicillin (From Augmentin) AdvReac Vomiting Verified 09/06/24 13:53 clavulanic acid (From AdvReac Vomiting Verified 09/06/24 13:53 Augmentin) PFSH FOR[facility]LY [facility] Disclaimer: The information contained in this section may have been updated after the patient was seen, as this information can be updated by other users. Medical History (Updated 09/06/24 @ 18:43 by Charlotte Dominguez MD) Hematuria History of kidney stones Right flank pain Wolfgang blood in stool Depression Anxiety Surgical History S/P lumbar discectomy S/P section S/P cholecystectomy Family History Grandfather Cancer Other No significant family history Social History Smoking Status: Current every day smoker alcohol intake: current substance use type: denies use current occupational status: other Travel in the last 8 weeks: None Have you lived/traveled outside [place] in past 30 days?: No Contact w/someone who lives/traveled outside [place] past 30 days?: No Exposure to someone with infectious disease in past 14 days?: No Do you have a fever (greater than 100.4 F or 38 C)?: No Have you tested positive for COVID-19: No Exposed to someone with COVID-19 in past 14 days?: No Do you have a sore throat?: No Do you have a cough?: No Do you have any weakness?: No Do you have any diarrhea?: No Are you experiencing any unusual bleeding?: No Do you have any muscle aches/pain?: No Do you have any abdominal pain?: No Are you experiencing loss of taste or smell?: No Other Medical History Have you received the Flu Vaccine for this season: No Have you received the Pneumonia Vaccine: No ROS Obtained: Yes All systems reviewed & no additional complaints except as documented Physical Exam General General appearance: alert and in no apparent distress Respiratory Respiratory exam: Present normal lung sounds bilaterally Cardiovascular Cardiovascular exam: Present regular rate Abdominal Exam Abdominal exam: Present soft and tenderness (There is some right upper quadrant right mid abdominal and right CVA tenderness no rebound or guarding); Absent distention Neurological Exam Neurological exam: Present alert and oriented X3 Medical Decision Making Medical Records Screening: Per USPSTF and CDC recommendations, given the prevalence of disease in our region, it is our hospital?s policy to screen for HIV and viral Hepatitis for all patients aged 18 and over and those with ongoing risk factors. [place] Inquiry Pt receiving controlled substance: No Vital Signs: 09/06/24 18:21 09/06/24 18:29 09/06/24 18:30 Temperature 98.0 F Temperature Source Oral Pulse Rate 102 H 84 Pulse Rate [Radial] 95 H Respiratory Rate 18 Blood Pressure 157/108 H 127/97 H Blood Pressure [Right Arm] 157/108 H Blood Pressure Mean Blood Pressure Mean [Right Arm] 124 Blood Pressure Source [Right Arm] Automatic Cuff Blood Pressure Position [Right Arm] Sitting 02 Sat by Pulse Oximetry 100 100 99 Oxygen Delivery Method Room Air Room Air Room Air 09/06/24 19:16 09/06/24 19:30 Temperature Temperature Source Pulse Rate 68 68 Pulse Rate [Radial] Respiratory Rate Blood Pressure 137/91 H 118/82 Blood Pressure [Right Arm] Blood Pressure Mean 106 96 Blood Pressure Mean [Right Arm] Blood Pressure Source [Right Arm] Blood Pressure Position [Right Arm] 02 Sat by Pulse Oximetry 100 100 Oxygen Delivery Method Room Air Room Air Lab Data Lab results reviewed: Yes I reviewed the patient's lab results. Lab Results 09/06/24 18:20: WBC 14.2 H D, RBC 5.07, Hgb 16.3 H, Hct 45.5, MCV 89.7, MCH 32.1 H, MCHC 35.8 H, RDW 12.1, Plt Count 292, MPV 10.0, Neut % (Auto) 61.2, Lymph % (Auto) 27.2, Coke % (Auto) 8.0, Eos % (Auto) 2.2, Baso % (Auto) 1.0, Neut # (Auto) 8.7 H, Lymph # (Auto) 3.9, Coke # (Auto) 1.1 H, Eos # (Auto) 0.3, Baso # (Auto) 0.1, Sodium 140, Potassium 3.7, Chloride 106, Carbon Dioxide 25, Anion Gap 12.7, BUN 8, Creatinine 0.80, Estimated Creat Clear 148, Estimated GFR 82, Est GFR ( Amer) 99, Glucose 80 D, Calcium 9.3, Total Bilirubin 0.5, AST 31, ALT 32, Alkaline Phosphatase 72, Total Protein 8.2, Albumin 4.7, Globulin 3.5 H, Albumin/Globulin Ratio 1.3, Lipase 198, Serum HCG, Qual Negative 09/06/24 18:21: Urine Color Yellow, Urine Appearance Clear, Urine pH 7.0, Ur Specific [place] 1.015, Urine Protein Negative, Urine Glucose (UA) Negative, Urine Ketones Negative, Urine Blood Trace-i, Urine Nitrate Negative, Urine Bilirubin Negative, Urine Urobilinogen 0.2, Ur Leukocyte Esterase Negative, Urine RBC Occasional, Urine WBC 3-5, Ur Squamous Epith Cells 3-5, Urine Bacteria Trace 09/06/24 18:20 09/06/24 18:20 Orders (Tests/Meds): ED MEDICATIONS Generic Name Dose Route Start Last Admin Trade Name Freq PRN Reason Stop Dose Admin Dicyclomine HCl 20 mg 09/06/24 21:42 Dicyclomine 10mg Capsule PO 09/06/24 21:43 ONCE ONE Discontinued Medications Generic Name Dose Route Start Last Admin Trade Name Freq PRN Reason Stop Dose Admin Lactated Ringer's 1,000 mls @ 999 mls/hr 09/06/24 18:45 09/06/24 19:00 Lactated Ringer's 1000 Ml Bag IV 09/06/24 19:45 999 mls/hr .Q1H1M JOSE L Administration Ketorolac Tromethamine 15 mg 09/06/24 18:41 09/06/24 19:00 Ketorolac 30mg/Ml Vial IV 09/06/24 18:42 15 mg ONCE ONE Administration Morphine Sulfate 4 mg 09/06/24 18:41 09/06/24 19:00 Morphine 4mg/Ml Syringe IV 09/06/24 18:42 4 mg ONCE ONE Administration Ondansetron HCl 4 mg 09/06/24 18:41 09/06/24 19:00 Ondansetron 4mg/2ml Vial IV 09/06/24 18:42 4 mg ONCE ONE Administration ORDERS Category Date Time Status CT abdomen pelvis wo con Stat Cat Scan 09/06/24 18:42 Completed CBC w/Auto Diff [Complete Blood Count Auto Diff] Stat Lab 09/06/24 18:20 Completed CMP [Comprehensive Metabolic Panel] Stat Lab 09/06/24 18:20 Completed HCG Qualitative, Serum Stat Lab 09/06/24 18:20 Completed Lipase Stat Lab 09/06/24 18:20 Completed UA [Urinalysis and Microscopic] Stat Lab 09/06/24 18:21 Completed Medical Decision Narrative: 33-year-old with above history and physical presents today with right-sided flank pain radiating through to her back she does have some tenderness in the anterior and posterior aspect of her abdomen and back. Differential includes pyelonephritis, kidney stone, colitis, appendicitis etc. Will get a noncontrasted CT scan to further evaluate. IV fluids pain medicine nausea medicine have been administered and I will reassess. Reassessment 9:45 PM patient feeling much better labs unremarkable other than mild elevation her white blood cell count no definitive evidence of causation of her pain. CT scan was performed which I personally interpreted which shows no intra-abdominal pathology specifically no evidence of a kidney stone or any other inflammatory process. Radiology read is consistent with this. Given the fact the patient had right upper quadrant pain radiating through to her back it is possible that is this is a duodenal or peptic ulcer. I have advised that if she has postprandial abdominal pain or if this persist to follow-up with gastroenterology to discuss getting an EGD. Dose of Bentyl was given in the ED and a prescription of this was sent out with Eder. Patient was discharged in a stable condition she understand there is some diagnostic uncertainty and to return with any significant worsening of her symptoms. Critical Care Critical Care Time Critical Care Time: No
[2024-09-06 19:12] LABS: Lipase 198 U/L (23-300)
[2024-09-06 19:16] VITALS: BP 137/91; PULSE 68; O2SAT 100
[2024-09-06 19:16] LABS: Bacteria,Urine Trace /lpf; RBC,Urine Occasional #/hpf (0-3)
[2024-09-06 19:30] VITALS: BP 118/82; PULSE 68; O2SAT 100
[2024-09-06 21:51] VITALS: BP 114/77; PULSE 63; RESP 18; TEMP 36.6; O2SAT 98
[2024-09-06] MEDS: DICYCLOMINE 10MG CAPSULE 20 MG PO (21:59)
== END 2024-09-06 22:01 | disposition home or self-care (01) ==
PROVIDERS: Emergency Provider Student in an Organized Health Care Education/Training Program; PCP Nurse Practitioner
DX: R10.31 Right lower quadrant pain (principal); M54.59 Other low back pain; R11.0 Nausea
CPT/HCPCS: 74176; 80053; 81001; 83690; 84703; 85025; 96361; 96374; 96375; 99285; J1885; J2270; J2405; J7120

== ENCOUNTER 2024-09-27 18:20 | Emergency (ER) | payer SELFPAY ==
[2024-09-27 18:27] VITALS: BP 178/100; PULSE 74; RESP 18; TEMP 37.1; O2SAT 100; BMI 36.5
--- NOTE | 2024-09-27 18:46 | ED_ITS ---
Discharge Plan Disposition Chief Complaint: Abdominal Pain Prescriptions Prescriptions: New ondansetron 4 mg tablet,disintegrating 4 mg PO Q6H PRN (Reason: nausea and vomiting) 5 Days Qty: 20 0RF No Action fluticasone propionate 50 mcg/actuation spray,suspension 1 spray intranasal DIRECTED PRN (Reason: Allergy Symptoms) Patient Comments: USE 1 SPRAY INTO EACH NOSTRIL DAILY omeprazole 40 mg capsule,delayed release(DR/EC) 40 mg PO DAILY Patient Comments: TAKE 1 CAPSULE BY MOUTH EVERY DAY metaxalone 800 mg tablet 800 mg PO TID PRN (Reason: muscle pain) Qty: 30 1RF topiramate 100 mg tablet 100 mg PO BID Qty: 180 1RF venlafaxine 150 mg capsule,extended release 24hr 150 mg PO DAILY Qty: 90 1RF trazodone 100 mg tablet 100 mg PO HS Qty: 90 1RF albuterol sulfate 90 mcg/actuation HFA aerosol inhaler 2 puff inhalation Q4-6H PRN (Reason: shortness of breath or wheezing) Qty: 8.5 0RF ondansetron HCl 4 mg tablet 4 mg PO Q8H PRN (Reason: nausea and vomiting) Qty: 20 0RF nitrofurantoin monohyd/m-cryst [Macrobid] 100 mg capsule 100 mg PO Q12H 7 Days Qty: 14 0RF Rx Instructions: must administer with a meal/food hyoscyamine sulfate 0.125 mg tablet 0.125 mg PO QID PRN (Reason: diarrhea or abdominal cramping) Qty: 30 0RF tamsulosin 0.4 mg capsule 0.4 mg PO DAILY Qty: 30 0RF colestipol [Colestid] 1 gram tablet 2 g PO .At bedtime Qty: 60 12RF Rx Instructions: Please take 2 tablets p.o. nightly dicyclomine 10 mg capsule 10 mg PO BID Qty: 60 12RF Rx Instructions: Please take 1 tablet p.o. before meals twice daily prednisone 20 mg tablet 20 mg PO BID Qty: 10 0RF lidocaine 5 % adhesive patch,medicated 1 patch topical DAILY Qty: 30 0RF Rx Instructions: leave on most painful area for up to 12 hrs [id number]-[id number] [Bromfed DM] 2-30-10 mg/5 mL syrup 5 ml PO Q4H PRN (Reason: sinus symptoms) Qty: 118 0RF metaxalone 800 mg tablet 800 mg PO TID PRN (Reason: muscle pain) Qty: 42 0RF ropinirole 0.25 mg tablet 0.25 mg PO HS Qty: 30 0RF Rx Instructions: administer 1-3 hours before bedtime dicyclomine 20 mg tablet 20 mg PO TID PRN (Reason: abdominal pain or spasm) 7 Days Qty: 21 0RF ondansetron 4 mg tablet,disintegrating 4 mg PO Q6H PRN (Reason: nausea and vomiting) 5 Days Qty: 20 0RF Referrals Follow up/Referrals: Provider,Referral, MD [Primary Care Provider] - See instructions Activity Restrictions/Add. Instructions Additional Instructions/Restrictions: As discussed with your nausea and epigastric and left upper quadrant abdominal pain there is a broad differential which abdominal exam was benign and it is incredibly unlikely that you have any surgical pathology and workup was offered but you declined and would like to go home with nausea medication return with any worsening symptoms. Please understand that there is diagnostic uncertainty and please come back with any significant worsening of your symptoms. That being said I do agree that the most likely your symptoms are consistent with a viral illness. Clinical Impressions Clinical Impression: Nausea Instructions Patient Instructions: DI for Acute Abdominal Pain Print Language Print Language: Romansh Discharge ED Provider: Charlotte Dominguez General Adult HPI <Kasandra Maldonado ([facility]), DIRECTOR OF ACQUISITIONS - Last Filed: 09/27/24 19:07> General Chief complaint: Abdominal Pain Stated complaint: abdominal pain,headache Time Seen by Provider: 09/27/24 18:25 Mode of Arrival: Ambulatory Source of Information: Patient and Parent(s) Description of Symptoms (Recalled from ER Triage Doc. by RN): Pt presents for evaluation of headache, feeling jittery and abdominal pain History of Present Illness HPI narrative: 34-year-old female presents for complaints of headache, feeling jittery, nausea and left upper quad pain that started yesterday morning Related Data Home Medications ?Medication ?Instructions ?Recorded ?Confirmed fluticasone propionate 50 1 spray intranasal DIRECTED PRN 08/22/24 09/06/24 mcg/actuation nasal Allergy Symptoms spray,suspension omeprazole 40 mg capsule,delayed 40 mg PO DAILY 08/22/24 09/06/24 release Previous Rx's ?Medication ?Instructions ?Recorded albuterol sulfate 90 mcg/actuation 2 puff inhalation Q4-6H PRN 05/03/24 aerosol inhaler shortness of breath or wheezing #8.5 grams topiramate 100 mg tablet 100 mg PO BID #180 tabs 05/03/24 trazodone 100 mg tablet 100 mg PO HS #90 tabs 05/03/24 venlafaxine 150 mg 150 mg PO DAILY #90 caps 05/03/24 capsule,extended release 24 hr colestipol 1 gram tablet (Colestid) 2 g (2 x 1 gram) PO .At bedtime 07/20/24 #60 tabs dicyclomine 10 mg capsule 10 mg PO BID #60 caps 07/20/24 jelaldhzfwvagnj-tbjyyibrduufflr-PF 5 ml PO Q4H PRN sinus symptoms 08/21/24 2 mg-30 mg-10 mg/5 mL oral syrup #118 mL (Bromfed DM) lidocaine 5 % topical patch 1 patch topical DAILY #30 ea 08/21/24 metaxalone 800 mg tablet 800 mg PO TID PRN muscle pain #30 08/22/24 tabs metaxalone 800 mg tablet 800 mg PO TID PRN muscle pain #42 08/28/24 tabs ropinirole 0.25 mg tablet 0.25 mg PO HS #30 tabs 08/28/24 dicyclomine 20 mg tablet 20 mg PO TID PRN abdominal pain or 09/06/24 spasm 7 days #21 tabs hyoscyamine sulfate 0.125 mg tablet 0.125 mg PO QID PRN diarrhea or 09/06/24 abdominal cramping #30 tabs nitrofurantoin 100 mg PO Q12H 7 days #14 caps 09/06/24 monohydrate/macrocrystals 100 mg capsule (Macrobid) ondansetron 4 mg disintegrating 4 mg PO Q6H PRN nausea and 09/06/24 tablet vomiting 5 days #20 tabs ondansetron HCl 4 mg tablet 4 mg PO Q8H PRN nausea and 09/06/24 vomiting #20 tabs tamsulosin 0.4 mg capsule 0.4 mg PO DAILY #30 caps 09/06/24 prednisone 20 mg tablet 20 mg PO BID #10 tabs 09/07/24 ondansetron 4 mg disintegrating 4 mg PO Q6H PRN nausea and 09/27/24 tablet vomiting 5 days #20 tabs Allergies Allergy/AdvReac Type Severity Reaction Status Date / Time cephalexin (From Keflex) Allergy Hives Verified 09/06/24 13:53 clarithromycin (From Biaxin) Allergy Hives Verified 09/06/24 13:53 celecoxib (From Celebrex) AdvReac Unknown GI upset Verified 09/06/24 13:53 NSAIDS (Non-Steroidal AdvReac Unknown GI upset Verified 09/06/24 13:53 Anti-Inflamma amoxicillin (From Augmentin) AdvReac Vomiting Verified 09/06/24 13:53 clavulanic acid (From AdvReac Vomiting Verified 09/06/24 13:53 Augmentin) PFSH <Kasandra Maldonado ([facility]), DIRECTOR OF ACQUISITIONS - Last Filed: 09/27/24 19:07> PFS Disclaimer: The information contained in this section may have been updated after the patient was seen, as this information can be updated by other users. Medical History , DIRECTOR OF ACQUISITIONS) Hematuria History of kidney stones Right flank pain Wolfgang blood in stool Depression Anxiety Surgical History , DIRECTOR OF ACQUISITIONS) S/P lumbar discectomy S/P section S/P cholecystectomy Family History , DIRECTOR OF ACQUISITIONS) No significant family history Cancer Grandfather Social History , DIRECTOR OF ACQUISITIONS) Smoking Status: Current every day smoker alcohol intake: current substance use type: denies use current occupational status: other Travel in the last 8 weeks?: None Have you lived/traveled outside [place] in past 30 days?: No Contact w/someone who lives/traveled outside [place] past 30 days?: No Exposure to someone with infectious disease in past 14 days?: No Do you have a fever (greater than 100.4 F or 38 C)?: No Have you tested positive for COVID-19?: No Exposed to someone with COVID-19 in past 14 days?: No Do you have a sore throat?: No Do you have a cough?: No Do you have any weakness?: No Do you have any diarrhea?: No Are you experiencing any unusual bleeding?: No Do you have any muscle aches/pain?: No Do you have any abdominal pain?: No Are you experiencing loss of taste or smell?: No Other Medical History Have you received the Flu Vaccine for this season: No Have you received the Pneumonia Vaccine: No <Kasandra Maldonado ([facility]), DIRECTOR OF ACQUISITIONS - Last Filed: 09/27/24 19:07> ROS Obtained: Yes Systems reviewed as appropriate & no additional complaints except as documented Physical Exam <Kasandra Maldonado ([facility]), DIRECTOR OF ACQUISITIONS - Last Filed: 09/27/24 19:07> General General appearance: alert and in no apparent distress ENT ENT exam: Present normal exam and mucous membranes moist Respiratory Respiratory exam: Present normal lung sounds bilaterally Cardiovascular Cardiovascular exam: Present regular rate and normal rhythm Abdominal Exam Abdominal exam: Present soft, tenderness and normal bowel sounds Abdominal tenderness: Present LUQ Neurological Exam Neurological exam: Present alert and oriented X3 Skin Skin exam: Present warm and intact Medical Decision Making <Kasandra Maldonado ([facility]), DIRECTOR OF ACQUISITIONS - Last Filed: 09/27/24 19:07> Medical Records Medical records reviewed: Yes I reviewed the patient's medical records. Screening: Per USPSTF and CDC recommendations, given the prevalence of disease in our region, it is our hospital?s policy to screen for HIV and viral Hepatitis for all patients aged 18 and over and those with ongoing risk factors. Harmeet Inquiry Pt receiving controlled substance: No Harmeet was queried for this patient: No Vital Signs: 09/27/24 18:27 Temperature 98.7 F Temperature Source Oral Pulse Rate [Right] 74 Respiratory Rate 18 Blood Pressure [Right Arm] 178/100 H Blood Pressure Mean [Right Arm] 126 Blood Pressure Source [Right Arm] Automatic Cuff Blood Pressure Position [Right Arm] Sitting 02 Sat by Pulse Oximetry 100 Oxygen Delivery Method Room Air Lab Data Lab results reviewed: Yes I reviewed the patient's lab results. Orders (Tests/Meds): ED MEDICATIONS Discontinued Medications Generic Name Dose Route Start Last Admin Trade Name Freq PRN Reason Stop Dose Admin Ondansetron HCl 4 mg 09/27/24 18:32 09/27/24 19:09 Ondansetron 4mg Odt SL 09/27/24 18:33 4 mg ONCE ONE Administration Medical Decision Narrative: In summary patient is a 33-year-old female who presents to the emergency department for evaluation of dizziness, shakiness, left upper quad pain and headache, patient states she is here with her daughter and just thought she would get looked at to. Patient states she only wants something for nausea and does not want any workup at this time. Discussion with patient regarding uncertainty without doing diagnostics and patient still states she would just like nausea medicine at this time. Patient is hemodynamically stable upon arrival, afebrile. Tenderness noted in the left upper quadrant. Differential diagnosis includes [DDx]. Initial workup will be conducted with [hematologic labs, imaging, respiratory swab, described workup]. Initial inventions include [crystalloid bolus, medications, p.o. challenge, etc.]. Initial workup reviewed by me [hematologic labs remarkable for? Imaging remarkable for? Urinalysis remarkable for?]. Upon repeat evaluation [patient had except for resolution of symptoms, had persistent pain for which additional interventions were conducted (describe interventions), tolerated p.o., was ambulatory, etc.]. Given this [patient was appropriate for discharge at this time and will be discharged with a prescription for? This case was discussed with hospital medicine regarding management? They will meet the patient to their service for continued evaluation at this time? Etc.] <Charlotte Dominguez MD - Last Filed: 09/27/24 19:34> Vital Signs: 09/27/24 18:27 Temperature 98.7 F Temperature Source Oral Pulse Rate [Right] 74 Respiratory Rate 18 Blood Pressure [Right Arm] 178/100 H Blood Pressure Mean [Right Arm] 126 Blood Pressure Source [Right Arm] Automatic Cuff Blood Pressure Position [Right Arm] Sitting 02 Sat by Pulse Oximetry 100 Oxygen Delivery Method Room Air Orders (Tests/Meds): ED MEDICATIONS Discontinued Medications Generic Name Dose Route Start Last Admin Trade Name Freq PRN Reason Stop Dose Admin Ondansetron HCl 4 mg 09/27/24 18:32 09/27/24 19:09 Ondansetron 4mg Odt SL 09/27/24 18:33 4 mg ONCE ONE Administration Medical Decision Narrative: In summary patient is a 33-year-old female who presents to the emergency department for evaluation of dizziness, shakiness, left upper quad pain and headache, patient states she is here with her daughter and just thought she would get looked at to. Patient states she only wants something for nausea and does not want any workup at this time. Discussion with patient regarding uncertainty without doing diagnostics and patient still states she would just like nausea medicine at this time. Patient is hemodynamically stable upon arrival, afebrile. Tenderness noted in the left upper quadrant. Differential diagnosis includes [DDx]. Initial workup will be conducted with [hematologic labs, imaging, respiratory swab, described workup]. Initial inventions include [crystalloid bolus, medications, p.o. challenge, etc.]. Initial workup reviewed by me [hematologic labs remarkable for? Imaging remarkable for? Urinalysis remarkable for?]. Upon repeat evaluation [patient had except for resolution of symptoms, had persistent pain for which additional interventions were conducted (describe interventions), tolerated p.o., was ambulatory, etc.]. Given this [patient was appropriate for discharge at this time and will be discharged with a prescription for? This case was discussed with hospital medicine regarding management? They will meet the patient to their service for continued evaluation at this time? Etc.] This is Dr. Dominguez I took over primarily from Hugh Anglinwalter. Patient is here with her daughter who has been having some constipation and epigastric abdominal pain and Ms. Emery felt as though she should just check and because she been having some mild chronic diarrhea and epigastric and left upper quadrant abdominal discomfort and feeling as though she is coming down with something. She was offered a workup but her abdominal exam was very benign and I told her it is most likely not anything surgical and a CT scan was not indicated. I offered blood test IV fluids nausea medication but she declined this and would like to try nausea medicine at home and return with any worsening of her symptoms. I was explicit that there is diagnostic uncertainty and because we d id not do a workup that I am not definitively sure what is going on but I do agree most likely that she has a viral illness. She is very understanding of this and will return with any worsening of her symptoms discharged in a stable condition. Prescription of Zofran sent to her pharmacy. Critical Care <Kasandra Maldonado ([facility]), DIRECTOR OF ACQUISITIONS - Last Filed: 09/27/24 19:07> Critical Care Time Critical Care Time: No
[2024-09-27] MEDS: ONDANSETRON 4MG ODT 4 MG SL (19:09)
[2024-09-27 19:43] VITALS: BP 125/88; PULSE 72; RESP 18; TEMP 36.7; O2SAT 100
== END 2024-09-27 19:43 | disposition home or self-care (01) ==
LOC: ER 18:40
PROVIDERS: Emergency Provider Student in an Organized Health Care Education/Training Program
DX: R10.12 Left upper quadrant pain (principal); R51.9 Headache, unspecified; R11.0 Nausea
CPT/HCPCS: 99283; Q0162

== ENCOUNTER 2024-12-17 19:10 | Emergency (ER) | payer MEDICAID, SELFPAY ==
--- OUTSIDE RECORDS SUMMARY | 2022-04-24 09:35 | XMS_ITS | Continuity of Care Document ---
Author Organization [facility] Address [address] [place] [address] Phone Care Team Providers Care Greeting Card Maker Name Role Phone Zay Moore MD Unavailable [...] Encounter Office/outpa tient visit,est, mod [facility], [address] [place], [address], tel:[phone] [address] [place] [address] Other specified joint disorders, left hip 2 Oscar Collazo. [address] [facility] [place] [place], [id number] . tel:[phone] Referring Provider: Zay Manzanares, [address], [facility] [place], [address] . tel:[phone] [facility], [address], [place], [address], [place] tel:[phone] [facility] No Information 2 Oscar Collazo. [address], [place], [place], [id number] . tel:[phone] Office/outpa tient visit,[facility], [address], [place], [address], [place] tel:[phone] [address] [place] [address] Spondylosis w/o myelopathy or radiculopathy, lumbar regionRadiculopa thy, lumbar regionTrochanter ic bursitis, left hip 2 Bautista Amanda. [facility] [place], [place], [facility], . tel:[phone] Referring Provider: Lauro dong, [address], [place], [address] . tel:[phone] [facility]pa [facility]ient visit,[facility], [facility] [place], [address], tel:[phone] [facility] Other specified joint disorders, left hip 2 Oscar Collazo. [address], [facility] [place], [id number] . tel:[phone] Referring Provider: Zay Manzanares, [address] [facility] [place], [address] . tel:[phone] Family History Family Member Type Diagnosis Age At Onset Father Problem (finding) Family history of Spine Disorder Mother Problem (finding) Family history of Spine Disorder Payers Payer name Insurance type Covered green party ID Authoriza titushar(s) [employer] Medicaid CI [id number] Social History Type Description Quantity Date Captured Comments Sex Female Smoking Status No Information Chief Complaint And Reason For Visit No Information Reason For Referral Reason For Referral No Information Plan Of Treatment Date Type Action Status Future Order: Radiology Order MR I Hip W Contrast ([id number]), Ordered on: Ordered History Of Present Illness Encounter Date Complaint History Of Prese nt Illness hip Functional Status Date Functional Assessmen t No Information Instructions Date Instruction Additional Infor mation No Information Assessments Type Assessment Date No Information Patient Care Teams Name Effective Dates (start - stop) Status Members No Information
[2024-12-17] VITALS (8 sets, daily range): BP systolic 121–141; BP diastolic 87–96; PULSE 51–91; RESP 16–20; TEMP 36.7–36.9; O2SAT 98–99; BMI 35.4
--- NOTE | 2024-12-17 19:12 | ED_ITS ---
<Statement entered by Charlotte Dominguez MD - 12/17/24 22:18> I was consulted by the SANDRA, and we discussed the complexity of the problems being addressed. I approved the treatment and management plan for this patient's care in the emergency department, thus performing a substantive portion of the medical decision making. Charlotte Dominguez MD, FARHAD, FACEP Discharge Plan Disposition Patient Disposition: Home, Self-Care Condition: Good Prescriptions Prescriptions: No Action fluticasone propionate 50 mcg/actuation spray,suspension 1 spray intranasal DIRECTED PRN (Reason: Allergy Symptoms) Patient Comments: USE 1 SPRAY INTO EACH NOSTRIL DAILY omeprazole 40 mg capsule,delayed release(DR/EC) 40 mg PO DAILY Patient Comments: TAKE 1 CAPSULE BY MOUTH EVERY DAY azithromycin 250 mg tablet See Rx Instructions PO .COMPLEX Qty: 6 0RF Rx Instructions: For 250 mg dose pack: take 500 mg today (day 1), then 250 mg for 4 days (days 2-5) PO prednisone 20 mg tablet 20 mg PO .COMPLEX Qty: 15 0RF Rx Instructions: 20 mg orally BID x 5 days then daily x 5 days mvdwbdbnntjsizv-zqxzjytzj-ZO [Bromfed DM] 2-30-10 mg/5 mL syrup 5 ml PO Q4-6H PRN (Reason: cold symptoms) Qty: 240 0RF albuterol sulfate 90 mcg/actuation HFA aerosol inhaler 2 puff inhalation Q4-6H PRN (Reason: shortness of breath or wheezing) Qty: 8.5 0RF topiramate 100 mg tablet 100 mg PO BID Qty: 180 1RF venlafaxine 150 mg capsule,extended release 24hr 150 mg PO DAILY Qty: 90 1RF trazodone 100 mg tablet 100 mg PO HS Qty: 90 1RF tamsulosin 0.4 mg capsule 0.4 mg PO DAILY Qty: 30 0RF ropinirole 0.25 mg tablet See Rx Instructions .ROUTE .COMPLEX Qty: 30 0RF Dose Instruction: TAKE 1 TABLET BY MOUTH AT BEDTIME NIGHTLY ADMINISTER 1-3 HOURS BEFORE BEDTIME Rx Instructions: TAKE 1 TABLET BY MOUTH AT BEDTIME NIGHTLY ADMINISTER 1-3 HOURS BEFORE BEDTIME colestipol [Colestid] 1 gram tablet 2 g PO .At bedtime Qty: 60 12RF Rx Instructions: Please take 2 tablets p.o. nightly lidocaine 5 % adhesive patch,medicated 1 patch topical DAILY Qty: 30 0RF Rx Instructions: leave on most painful area for up to 12 hrs ondansetron 4 mg tablet,disintegrating 4 mg PO Q6H PRN (Reason: nausea and vomiting) 5 Days Qty: 20 0RF Referrals Follow up/Referrals: Nanette Funez APRN [Primary Care Provider, Family Practice] - See instructions Activity Restrictions/Add. Instructions Additional Instructions/Restrictions: Recommend taking Tylenol alternating with ibuprofen for symptomatic pain relief. If you have continued symptoms please follow-up with your PCP as you may need outpatient ultrasound and although we identified no serious or life-threatening condition as the cause of your pain today if you have persistent symptoms you may need further evaluation. Clinical Impressions Clinical Impression: Right upper quadrant abdominal pain Instructions Patient Instructions: DI for Acute Abdominal Pain Print Language Print Language: Puerto Rican Discharge ED Provider: Charlotte Dominguez General Adult HPI General Chief complaint: Abdominal Pain Stated complaint: right side pain in back area Time Seen by Provider: 12/17/24 19:12 History of Present Illness HPI narrative: Patient presents for evaluation of right upper quadrant abdominal pain. Patient states that she has had 2 days of right upper quadrant abdominal pain that radiates around to her right flank. She does have a history of previous cholecystectomy. She denies shortness of breath fever chills hemoptysis hematochezia melena she reports nausea but no vomiting or diarrhea. She reports increasing urinary frequency but no dysuria. Related Data Home Medications ?Medication ?Instructions ?Recorded ?Confirmed fluticasone propionate 50 1 spray intranasal DIRECT ED PRN 08/22/24 10/10/24 mcg/actuation nasal Allergy Symptoms spray,suspension omeprazole 40 mg capsule,delayed 40 mg PO DAILY 10/10/24 release Previous Rx's ?Medication ?Instructions ?Recorded topiramate 100 mg tablet 100 mg PO BID #180 tabs 04/23 06/16 trazodone 100 mg tablet 100 mg PO HS #90 tabs venlafaxine 150 mg 150 mg PO DAILY #90 caps 04/16 capsule,extended release 24 hr colestipol 1 gram tablet (Colestid) 2 g (2 x 1 gram) P O .At bedtime 07/20/24 #60 tabs lidocaine 5 % topical patch 1 patch topical DAILY #30 ea 08/21/24 tamsulosin 0.4 mg capsule 0.4 mg PO DAILY #30 caps ondansetron 4 mg disintegrating 4 mg PO Q6H PRN nausea and 09/27/24 tablet vomiting 5 days #20 tabs albuterol sulfate 90 mcg/actuation 2 puff inhalation Q 4-6H PRN 10/10/24 aerosol inhaler shortness of breath or wheez ing #8.5 grams azithromycin 250 mg tablet See Rx Instructions PO .COM PLEX #6 10/10/24 tabs lvnrzgqcsonvmqt-yzhlhpviljkfrht-AK 5 ml PO Q4-6H PRN c old symptoms 10/10/24 2 mg-30 mg-10 mg/5 mL oral syrup #240 mL (Bromfed DM) prednisone 20 mg tablet 20 mg PO .COMPLEX #15 tabs 0 10/10/24 ropinirole 0.25 mg tablet See Rx Instructions .Route 0 11/06/24 .COMPLEX #30 tabs Allergies Allergy/AdvReac Type Severity Reaction Status Date / Time cephalexin (From Keflex) Allergy Hives Verified 09/06/24 13:53 clarithromycin (From Biaxin) Allergy Hives Verified 09/06/24 13:53 celecoxib (From Celebrex) AdvReac Unknown GI upset Verified 09/06/24 13:53 NSAIDS (Non-Steroidal AdvReac Unknown GI upset Verified 09/06/24 13:53 Anti-Inflamma amoxicillin (From Augmentin) AdvReac Vomiting Verified 09/06/24 13:53 clavulanic acid (From AdvReac Vomiting Verified 09/06/24 13:53 Augmentin) [facility] Disclaimer: The information contained in this section may have been updated after the patient was seen, as this information can be updated by other users. Medical History (Reviewed 09/27/24 @ 18:48 by Kasandra Maldonado ([facility] MUSEUM ATTENDANT) Hematuria History of kidney stones Right flank pain Wolfgang blood in stool Depression Anxiety Surgical History (Reviewed 09/27/24 @ 18:48 by Kasandra Maldonado ([facility]), MUSEUM ATTENDANT) S/P lumbar discectomy S/P section S/P cholecystectomy Family History (Reviewed 09/27/24 @ 18:48 by Kasandra Maldonado ([facility]), MUSEUM ATTENDANT) No significant family history Cancer Grandfather Social History (Reviewed 09/27/24 @ 18:48 by Kasandra [facility] MUSEUM ATTENDANT) Smoking Status: Current every day smoker alcohol intake: current substance use type: denies use current occupational status: other Travel in the last 8 weeks?: None Have you lived/traveled outside US in past 30 days?: No Contact w/someone who lives/traveled outside US past 30 days?: No Exposure to someone with infectious disease in past 14 days?: No Do you have a fever (greater than 100.4 F or 38 C)?: No Have you tested positive for COVID-19?: No Exposed to someone with COVID-19 in past 14 days?: No Do you have a sore throat?: No Do you have a cough?: No Do you have any weakness?: No Do you have any diarrhea?: No Are you experiencing any unusual bleeding?: No Do you have any muscle aches/pain?: No Do you have any abdominal pain?: No Are you experiencing loss of taste or smell?: No Other Medical History Have you received the Flu Vaccine for this season: No Have you received the Pneumonia Vaccine: No ROS Obtained: Yes Systems reviewed as appropriate & no additional complaints except as documented Physical Exam General General appearance: alert and in no apparent distress Respiratory Respiratory exam: Present normal lung sounds bilaterally Cardiovascular Cardiovascular exam: Present regular rate Neurological Exam Neurological exam: Present alert and oriented X3 Medical Decision Making Medical Records Medical records reviewed: Yes I reviewed the patient's medical records. Screening: Per USPSTF and CDC recommendations, given the prevalence of disease in our region, it is our hospital?s policy to screen for HIV and viral Hepatitis for all patients aged 18 and over and those with ongoing risk factors. [facility] Inquiry Pt receiving controlled substance: No Vital Signs: 12/17/24 19:21 12/17/24 19:27 12/17/24 19:30 Temperature 98.1 F Temperature Source Oral Pulse Rate 76 75 Pulse Rate [Right] 91 H Respiratory Rate 20 Blood Pressure 133/91 H 124/93 H Blood Pressure [Right Arm] 141/96 H Blood Pressure Mean Blood Pressure Mean [Right Arm] 111 02 Sat by Pulse Oximetry 99 99 98 Oxygen Delivery Method Room Air 12/17/24 20:00 12/17/24 20:30 12/17/24 21:00 Temperature Temperature Source Pulse Rate 68 62 51 L Pulse Rate [Right] Respiratory Rate Blood Pressure 130/88 130/89 121/87 Blood Pressure [Right Arm] Blood Pressure Mean 107 113 Blood Pressure Mean [Right Arm] 02 Sat by Pulse Oximetry 98 99 99 Oxygen Delivery Method Lab Data Lab Results 12/17/24 19:16: Urine Color Yellow, Urine Appearance Clear, Urine pH 6.0, Ur Specific [place] <= 1.005, Urine Protein Negative, Urine Glucose (UA) Negative, Urine Ketones Negative, Urine Blood Trace-i, Urine Nitrate Negative, Urine Bilirubin Negative, Urine Urobilinogen 0.2, Ur Leukocyte Esterase Negative, Urine RBC Occasional, Urine WBC None, Ur Squamous Epith Cells 3-5, Urine HCG, Qual Negative 12/17/24 19:26: WBC 10.6, RBC 4.91, Hgb 15.6, Hct 43.4, MCV 88.4, MCH 31.8 H, M CHC 35.9 H, RDW 12.1, Plt Count 284, MPV 10.1, Neut % (Auto) 60.6, Lymph % (Auto) 28.6, Real % (Auto) 6.5, Eos % (Auto) 3.0, Baso % (Auto) 1.0, Neut # (Auto) 6.4, Lymph # (Auto) 3.0, Real # (Auto) 0.7, Eos # (Auto) 0.3, Baso # (Auto) 0.1, Sodium 135 L, Potassium 3.8, Chloride 106, Carbon Dioxide 22, Anion Gap 10.8, BUN 13, Creatinine 0.60, Estimated Creat Clear 187, Estimated GFR 114, Est GFR ( Amer) 138, Glucose 98, Calcium 9.7, Total Bilirubin 0.5, AST 33, ALT 21, Alkaline Phosphatase 61, Total Protein 8.2, Albumin 4.8, Globulin 3.4 H, Albumin/Globulin Ratio 1.4, Lipase 145 12/17/24 19:26 12/17/24 19:26 Orders (Tests/Meds): ED MEDICATIONS Discontinued Medications Generic Name Dose Route Start Last Admin Trade Name Freq PRN Reason Stop Dose Admin Acetaminophen 1,000 mg 12/17/24 19:18 12/17/24 19:46 Acetaminophen 500mg Tab PO 12/17/24 19:19 Not Given ONCE ONE Hydromorphone HCl 0.5 mg 12/17/24 20:36 12/17/24 20:41 Hydromorphone 2mg/Ml Syringe IV 12/17/24 20:37 0.5 mg ONCE ONE Administration Sodium Chloride 1,000 mls @ 999 mls/hr 12/17/24 19:18 12/17/24 19:41 Sod Chlor 0.9% 1000ml Bag IV 12/17/24 20:18 999 mls/hr .Q1H1M ONE Administration Iopamidol 75 ml 12/17/24 20:12 12/17/24 20:13 Iopamidol-370 (76%);100ml Bottle IV 12/17/24 20:13 75 ml ONCE ONE Administration Ketorolac Tromethamine 15 mg 12/17/24 19:18 12/17/24 19:41 Ketorolac 30mg/Ml Vial IV 12/17/24 19:19 15 mg ONCE ONE Administration Ondansetron HCl 4 mg 12/17/24 19:18 12/17/24 19:41 Ondansetron 4mg/2ml Vial IV 12/17/24 19:19 4 mg ONCE ONE Administration Sodium Chloride 10 ml 12/17/24 20:12 12/17/24 20:13 Sodium Chloride 0.9% 10ml Syr (Rad Only) IV 12/17/24 20:13 10 ml ONCE ONE Administration Tamsulosin HCl 0.4 mg 12/17/24 20:37 12/17/24 20:41 Tamsulosin 0.4mg Capsule PO 12/17/24 20:38 0.4 mg ONCE ONE Administration ORDERS Category Date Time Status CT abdomen pelvis w con Stat Cat Scan 12/17/24 19:18 Completed CBC w/Auto Diff [Complete Blood Count Auto Diff] Stat Lab 12/17/24 19:26 Completed CMP [Comprehensive Metabolic Panel] Stat Lab 12/17/24 19:26 Completed Lipase Stat Lab 12/17/24 19:26 Completed UA [Urinalysis and Microscopic] Stat Lab 12/17/24 19:16 Completed Urine , HCG Qual. Stat Lab 12/17/24 19:16 Completed Medical Decision Narrative: In summary patient is a 34-year-old female who presents to the emergency department for evaluation of right upper quadrant abdominal pain rating around to the right flank with no trauma. Patient is hemodynamically stable upon arrival, afebrile. Physical exam is remarkable for right upper quadrant tenderness on palpation of the abdomen with CVA tenderness to percussion on the right negative on the left. Breath sounds clear to the bilateral to the bases without adventitious sounds, remainder of the abdomen soft nontender no rebound or guarding or rigidity.. Differential diagnosis includes kidney stone versus pyelonephritis versus ulcer versus biliary stone etc. Initial workup will be conducted with hematologic labs urinalysis CT scan abdomen pelvis. Initial interventions include crystalloid bolus Tylenol Toradol Zofran. Initial workup reviewed by me and her hematologic labs are nonactionable urinalysis is bland although there is trace blood and my informal interpretation of her CT scan does not show any acute processes although I believe she has a right ureter that is bigger than her left I could identify no stone or obstruction.. Upon repeat evaluation patient reports that her pain did come back after initial intervention and she was given a dose of Dilaudid at 0.5 mg one-time. Given this while there remains diagnostic and certainty to the cause of her pain we have essentially ruled out any serious or life-threatening cause of her discomfort currently. Given this patient is appropriate for discharge with close follow-up with her PCP for continued symptoms as she may need further outpatient workup. Critical Care Critical Care Time Critical Care Time: No
--- NOTE | 2024-12-17 19:18 | CT_ITS ---
PROCEDURE INFORMATION: Exam: CT Abdomen And Pelvis With Contrast Exam date and time: 12/17/2024 8:13 PM Age: 34 years old Clinical indication: Abdominal pain; Additional info: Right upper quadrant abdominal pain TECHNIQUE: Imaging protocol: Computed tomography of the abdomen and pelvis with contrast. Radiation optimization: All CT scans at this facility use at least one of these dose optimization techniques: automated exposure control; mA and/or kV adjustment per patient size (includes targeted exams where dose is matched to clinical indication); or iterative reconstruction. Contrast material: ISOVUE; Contrast volume: 75 ml; Contrast route: IV; COMPARISON: CT ABDOMEN PELVIS WO CON 09/06/2024 7:19 PM FINDINGS: Liver: Diffuse fatty infiltration. Measures 22 cm. No mass. Gallbladder and biliary ducts: Surgically absent. No intrahepatic biliary ductal dilatation. Pancreas: Unremarkable. No ductal dilation. Spleen: Unremarkable. No splenomegaly. Adrenal glands: Unremarkable. No mass. Kidneys and ureters: Unremarkable. No nephroureterolithiasis. No hydronephrosis. Stomach and bowel: Nonobstructive pattern. Appendix: No evidence of appendicitis. Intraperitoneal space: Unremarkable. No free air. No significant fluid collection. Vasculature: Unremarkable. No abdominal aortic aneurysm. Lymph nodes: Unremarkable. No enlarged lymph nodes. Urinary bladder: Unremarkable as visualized. Reproductive: Unremarkable as visualized. Bones/joints: Unremarkable. No acute fracture. Soft tissues: Unremarkable. IMPRESSION: 1. No acute findings. 2. Hepatomegaly with diffuse fatty infiltration.
--- OUTSIDE RECORDS SUMMARY | 2024-12-17 19:20 | XMS_ITS | Encounter Summary ---
Author Organization [place] [address] Care Team Providers Care Bias Binding Cutter Name Role Phone Lauro Cho MD Primary Care Provider [phone] Chris Schmidt MD Unavailable Unavailable [facility] Primary Care Provider [phone] Encounter Details Date Type Department Care Team (Late Contact Info) Description 03/01/2018 Refill SEP Patel [facility] [place] [address] [address] Lauro Cho MD [address] [facility] [place] [address] Social History Tobacco Use Types Packs/Day Years Used Date Smoking Tobacco: Every Day Cigarettes 0.3 10 Smokeless Tobacco: Never Alcohol Use Standard Drinks/Week Comments No 0 (1 standard drink = 0.6 oz pur e alcohol) Sexually Active Control Partners Comments Yes Male vasectomy Comments No Sex and Gender Information Value Date Recorded Sex Assigned at Not on file Legal Sex Female 11:37 PM EDT Gender Identity Not on file Sexual Orientation Not on file documented as of this encounter Functional Status * Is the person deaf or does he/she have serious difficulty hearing? Answer Date of Assessment Author No 06/28/2017 11:38 AM Bhumi Lamar CCMA * Is the person blind or does he/she have serious difficulty seeing even when wearing glasses? Answer Date of Assessment Author No 06/28/2017 11:38 AM Bhumi Lamar CCMA * Does this person have serious difficulty walking or climbing stairs? Answer Date of Assessment Author No 06/28/2017 11:38 AM Bhumi Lamar CCMA * Does this person have difficulty dressing or bathing? Answer Date of Assessment Author No 06/28/2017 11:38 AM Bhumi Lamar [facility] * Because of a physical, mental or emotional condition, does this person have difficulty doing errands alone such as visiting a doctor's office or shopping? Answer Date of Assessment Author No 06/28/2017 11:38 AM Bhumi Lamar [facility] documented as of this encounter Mental Status * Because of a physical, mental or emotional condition, does this person have serious difficulty concentrating, remembering or making decisions? Answer Entry Date Author No 06/28/2017 11:38 AM Bhumi Lamar CCMA documented in this encounter Ordered Prescriptions Prescription Sig Dispense Quantity Refills Last Filled Start Date End Date azithromycin (ZITHROMAX) 250 mg Oral Tablet Take 2 tablets (500 mg) on Day 1, followed by 1 tablet (250 mg) once daily on Days 2 through 5. 6 Tab 03/01/2018 8 documented in this encounter Plan of Treatment Not on file documented as of this encounter Goals Goal Patient Goal Type Associated Problems Recent Progress Patient-Stated? Author Eat better, exercise, reach an ideal body weight General No Mounika Bedoya N, RMA Stay Tobacco Free Lifestyle No Mounika Bedoya, RMA documented as of this encounter Visit Diagnoses Not on filedocumented in this encounter Additional Health Concerns Infection Onset Date Last Indicated Resolved Time COVID-19 01/27/2022 01/27/2022 02/16/2022 10:1 2 PM EDT R/O COVID-19 05/02/2022 05/02/2022 05/02/2022 11:0 0 PM EST R/O C-Diff 06/21/2023 06/21/2023 06/21/2023 2:45 PM EST documented as of this encounter Care Teams Bias Binding Cutter Relationship Specialty Start Date End Date Lauro Cho MD [address] [place], [place] [address] PCP - General Internal Medicine 01/06/13 04/23/24 Zakiya Gutierrez [address] [place] [id number] PCP - General Clinic/Center - [facility] 04/24/24 Chris Schmidt MD [address] [place] [address] Physician Internal Medicine-Gastroenterology 06/09/16 documented as of this encounter
--- OUTSIDE RECORDS SUMMARY | 2024-12-17 19:20 | XMS_ITS | Clinical Summary ---
Author Organization [email or web address] [facility] Address [address] [place] [address] Phone Care Team Providers Care Embroidery Specialist Name Role Phone Office Automation Clerk Unavailable Unavailable Conditions or Problems No information available. Medications Medication Instructions Start Date Stop Date Generic Name [facility] Provider IBUPROFEN 600 MG TABS Take 1 tablet by mouth every six hours as needed for pain for 5-7 days ibuprofen [id number] Joanne Bhandari DMD IBU 800 MG TABS Take 1 tablet by mouth every eight hours pain ibuprofen [id number] Joanne Bhandari DMD AMOXICILLIN 875 MG TABS Take 1 tablet by mouth twice a day for 7 days amoxicillin [id number] evelyn Robertson DMD IBUPROFEN 600 MG TABS Take 1 tablet by mouth every six hours as needed for pain for 5-7 days ibuprofen [id number] Junie Robertson DMD AMOXICILLIN 875 MG TABS Take 1 tablet by mouth twice a day for 10 days amoxicillin [id number] evelyn Robertson DMD ACETAMINOPHEN 500 MG TABS Take 1 tablet by mouth every six to eight hours as needed for pain acetaminophen [id number] [facility] DMD Medications Administered No information available. Allergies, Adverse Reactions, Alerts Observed no known allergies at Results No information available. Plan of Care No information available. Procedures No information available. Vital Signs No information available. Immunizations No information available. Advance Directives No information available.
--- OUTSIDE RECORDS SUMMARY | 2024-12-17 19:21 | XMS_ITS | Clinical Summary ---
Author Organization [facility] Address [address] [place] [id number] Care Team Providers Care Clam Bed Laborer Name Role Phone Pcp, No Primary Care Provider [phone] Source Comments This information has been disclosed to you from confidential records protectedfrom disclosure by state law. You shall make no further disclosure of thisinformation without the specific, written, and informed release of theindividual to whom it pertains, or as otherwise permitted by law. A generalauthorization for the release of medical or other information is not sufficientfor the purposes of therelease of HIV test results or diagnoses. [id number] Allergies Active Allergy Reactions Criticality Noted Date Comments Amoxicillin-Pot Clavulanate 04/28/20 22 Clarithromycin 04/28/2022 Cephalexin 04/28/2022 Medications venlafaxine (EFFEXOR) 75 MG tablet Take 1 tablet (75 mg total) by mouth 2 times a day. Active topiramate (TOPAMAX) 100 MG tablet Take 1 tablet (100 mg total) by mouth 2 times a day. Active traZODone (DESYREL) 100 MG tablet Take 1 tablet (100 mg total) by mouth at bedtime. Breaks pill in half Active gabapentin (NEURONTIN) 300 MG capsuleIndicati ons:DDD (degenerative disc disease), lumbar Take 1 capsule (300 mg total) by mouth 3 times a day. 90 capsule 3 Active methocarbamoL (ROBAXIN-750) 750 MG tablet Take 1 tablet (750 mg total) by mouth 3 times a day as needed. 90 tablet 3 Active methylPREDNISol one (MEDROL, SHAY,) 4 mg tablet follow package directions 21 each 3 Active Active Problems No known active problems Social History Tobacco Use Types Packs/Day Years Used Date Smoking Tobacco: Every Day Cigarettes Smokeless Tobacco: Never Tobacco Cessation:Ready to Q uit: Not Asked; Counseling Given: Not Answered PHQ-2 Answer Date Recorded PHQ-2 Total Score 0 10/27/2022 Yearly Questionnaire Answer Date Record ed Do you need any assistance w ith obtaining housing, meals, medication, transportation or medical equipment? No 10/27 Assistance needed for: Not on file 3 Yearly Questionnaire Answer Date Record ed Do you need any assistance w ith obtaining housing, meals, medication, transportation or medical equipment? No 10/27 Assistance needed for: Not on file 3 Yearly Questionnaire Answer Date Record ed Do you need any assistance w ith obtaining housing, meals, medication, transportation or medical equipment? No 10/27 Assistance needed for: Not on file 3 Comments No Sex and Gender Information Value Date Recorded Sex Assigned at Not on file Legal Sex Female 6:49 PM EST Gender Identity Not on file Sexual Orientation Not on file Last Filed Vital Signs Vital Sign Reading Time Taken Comments Blood Pressure 133/88 12/01/2022 11:01 AM EDT Pulse 84 12/01/2022 11:01 AM EDT Temperature - - Respiratory Rate - - Oxygen Saturation 99% 10/27/2022 1:31 PM EDT Inhaled Oxygen Concentration 99% 10/27/2022 1 :31 PM EDT Weight 101.1 kg (222 lb 14.4 oz) 10/27/2022 1:31 PM EDT Height 160 cm (5' 3 ) 10/27/2022 1:31 PM EDT Body Mass Index 39.48 10/27/2022 1:31 PM EDT Plan of Treatment Health Maintenance Due Date Last Done Comments Hepatitis C Screening ([facility]DIXhart) 1989 Alcohol Misuse Screening 09/30/2007 HIV Screening 09/30/2007 Immunization: Pneumococcal ( 1 of 2 - PCV) 2008 Cervical Cancer Screening/Pa p Smear (MyChart) 09/30/2019 Immunization: DTaP/Tdap/Td ( 3 - Td or Tdap) 08/17/2023 08/16/2013, 08/31/2012 Depression Screening 10/28/2023 10/27/2022 Immunization: COVID-19 ( season) 2024 Immunization: Influenza (MyC summers) (#1) 2025 Immunization: Hepatitis B Completed 2000, 09/28/2000, 08/10/2000 Insurance [facility] Care Teams Clam Bed Laborer Relationship Specialty Start Date End Date Pcp, No [address] [place] [address] PCP - General 04/28/22
--- OUTSIDE RECORDS SUMMARY | 2024-12-17 19:21 | XMS_ITS | Clinical Summary ---
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 abnormality of the knee. - Note: Radiology results need to be interpreted within a comprehensiveclinical context. If you have questions about the radiology report, please contactthe office of the ordering clinician. us Elisabet Yi MD IMG DIAGNOSTIC IMAGING ORDERA BLES Final Result * DRIER CYTOLOGY REQUEST (PAP ONLY) (05/05/2019 9:53 AM EST) CASE REPORT Gynecologic Cytology Report Case: [id number] Authorizing Provider: Jeanine Abreu CNM Collected: 05/05/201953 Ordering Location: [facility] Received: 05/05/201953 First Screen: Sebastian Torres CT Specimen: LIQUID-BASED PAP - CERVICAL/ENDOCERV ICAL, Cervix, Endocervical 05/09/2019 3:08 PM EST [email or web address] PAP FINAL DIAGNOSIS Negative for intraepithelial lesion or malignancy 05/09/2019 3:08 PM EST [email or web address] at 1508 EST MICROSCOPIC DESCRIPTION Microscopic examination is performed and the findings corroborate the diagnosis. 05/09/2019 3:08 PM EST [facility] PAP SMEAR ADEQUACY Satisfactory for evaluation 05/09/2019 3:08 PM EST [facility] ENDOCERVICAL T-ZONE Transformation zone present 05/09/2019 3:08 PM EST [facility] EMBEDDED IMAGES 9 3:08 PM EST [facility] PAP DISCLAIMER This case was not successfully imaged due to technical reasons and was manually rescreened. The Pap Smear is a screening test that aids in the detection of cervical cancer and cancer precursors. Both false positive and false negative results can occur. The test should be used at regular intervals, and positive results should be confirmed before definitive therapy. Processed using the ThinPrep Manager Area Automated cytology screening device (Zipidee). 05/09/2019 3:08 PM EST [facility] Thin Prep ENDOCERVICAL STRUCTURE / Unknown 05/05/2019 9:53 AM EST 05/05/2019 9:53 AM EST Jeanine Abreu CNM CYTOLOGY ORDERABLES Final Re sult [facility] [address] [phone] from Last 3 Months or Most Recently Relevant to Health Maintenance Insurance [facility] [address] [place] [id number] [employer]LL[employer] OF [address] [facility] AUTO ACCIDENT GENERIC on file [employer] [place] [address] MDR Advance Directives For more information, please contact: [phone] * Full Code (Latest Code Status on File) Date Activated Date Inactivated Comments 06/29/2023 10:50 AM 07/02/2023 2:26 PM * Full Code Date Activated Date Inactivated Comments 08/14/2013 10:10 AM 08/17/2013 4:20 PM Care Teams Optimization Manager Relationship Specialty Start Date End Date CamrynZakiya mckeon [address] [phone] PCP - General Clinic/Center - [facility] ([facility]) 04/24/24 Chris Schmidt MD Physician Internal Medicine-Gastroenterology 06/09/16
--- OUTSIDE RECORDS SUMMARY | 2024-12-17 19:21 | XMS_ITS | Encounter Summary ---
Author Organization [place] [address] Care Team Providers Care Logistical Engineer Name Role Phone Lauro Cho MD Primary Care Provider [phone] Chris Schmidt MD Unavailable Unavailable Zakiya Gutierrez Primary Care Provider [phone] Reason for Referral * MRI/CAT Scan (Routine) - Closed Specialty Diagnoses / Procedures Referred By Contac t Referred To Contact Radiology Diagnoses Back pain Procedures MRI LUMBAR SPINE WO CONTRAST Fantasma Pettit MD Phone: tel: fax: Referral ID Status Reason Start Date Expiration Date Visits Re quested Visits Authorized [id number] Closed 02/02/2014 08/01/2014 1 1 Encounter Details Date Type Department Care Team (Latest Contact Info) Description 02/02/2014 Pre-Imaging Procedure Adult Med [address] [place], [place] [id number] Kathy Bowen, RT Back pain (Primary Dx) Social History Tobacco Use Types Packs/Day Years Used Date Smoking Tobacco: Every Day Cigarettes 0.3 10 Smokeless Tobacco: Never Comments:trying, down to 4 t o 5 a day Alcohol Use Standard Drinks/Week Comments No 0 (1 standard drink = 0.6 oz pur e alcohol) Sexually Active [employer] Partners Comments Yes Male Comments Unknown Sex and Gender Information Value Date Recorded Sex Assigned at Not on file Legal Sex Female 11:37 PM EDT Gender Identity Not on file Sexual Orientation Not on file documented as of this encounter Plan of Treatment Not on file documented as of this encounter Results * MRI LUMBAR SPINE WO CONTRAST (03/07/2014 1:31 PM EDT) Anatomical Region Laterality Modality L-spine Magnetic Resonan ce 03/07/2014 12:5 6 PM EDT Impressions 03/07/2014 2:07 PM EDT IMPRESSION: 1. Multilevel degenerative disc signal changes, from L3-L4 through L5-S1. 2. Central disc bulges L3-L4 and L4-L5, currently noncompressive. Narrative 03/07/2014 2:07 PM EDT MRI LUMBAR SPINE WO CONTRAST Mar 07, 2014 01:31:55 PM HISTORY: Back pain, left leg pain. MRI lumbar spine performed on 1.5 Alyssa system. L2-L3 is normal in appearance. L3-L4 shows central disc protrusion, which indents the thecal sac slightly but does not compress the central canal. The foramina and lateral recesses are patent. L4-L5 shows intervertebral narrowing, disc desiccation, and annular tearing posterior midline with high intensity zone. The disc bulge indents the thecal sac slightly but does not cause overt central stenosis. The lateral recesses, and foramina are patent. L5-S1 shows mild degenerative disc annular signal change. No disc bulge or neural compression identified. Vertebral body morphology and alignment is intact. No pars defect identified. Procedure Note Jose Francisco Davies MD - 03/07/2014 MRI LUMBAR SPINE WO CONTRAST Mar 07, 2014 01:31:55 PM HISTORY: Back pain, left leg pain. MRI lumbar spine performed on 1.5 Alyssa system. L2-L3 is normal in appearance. L3-L4 shows central disc protrusion, which indents the thecal sac slightlybut does not compress the central canal. The foramina and lateral recesses arepatent. L4-L5 shows intervertebral narrowing, disc desiccation, and annulartearing posterior midline with high intensity zone. The disc bulge indents the thecal sac slightlybut does not cause overt central stenosis. The lateral recesses, and foramina are patent. L5-S1 shows mild degenerative disc annular signal change. No disc bulge orneural compression identified. Vertebral body morphology and alignment is intact. No pars defectidentified. IMPRESSION: 1. Multilevel degenerative disc signal changes, from L3-L4 throughL5-S1. 2. Central disc bulges L3-L4 and L4-L5, currently noncompressive. us Fantasma Pettit MD IMG MRI ORDERABLES Final Resul t documented in this encounter Visit Diagnoses Diagnosis Back pain- Primary Backache, unspecified Back pain Backache, unspecified documented in this encounter Additional Health Concerns Infection Onset Date Last Indicated Resolved Time COVID-19 01/27/2022 01/27/2022 02/16/2022 10:1 2 PM EDT R/O COVID-19 05/02/2022 05/02/2022 05/02/2022 11:0 0 PM EST R/O C-Diff 06/21/2023 06/21/2023 06/21/2023 2:45 PM EST documented as of this encounter Care Teams Logistical Engineer Relationship Specialty Start Date End Date Lauro Cho MD [address] [phone] PCP - General Internal Medicine 01/06/13 04/23/24 Zakiya Gutierrez [address] [phone] PCP - General Clinic/Center - [facility] ([facility]) 04/24/24 Chris Schmidt MD [address] [address] Physician Internal Medicine-Gastroenterology 06/09/16 documented as of this encounter
--- OUTSIDE RECORDS SUMMARY | 2024-12-17 19:21 | XMS_ITS ---
Author Organization Unknown ENCOUNTERS Encounter Performer Location Date Diagnosis Diagnosis Status Pre Admit J [facility] [address] [facility] [address] [place] [address] [id number] Emergency [facility] [address] [facility] [address] [place] [address] [id number] Emergency [facility] [address] [facility] [address] [place] [address] [id number] [place] Pre Admit J [facility] [address] [facility] [address] [place] [address] [id number] Pre Admit [facility] [address] [place] [facility] [address] [place] [address] [id number] Emergency [facility] [address] [facility] [address] [place] [address] [id number] [place] Pre Admit [facility] [address] [place] [facility] [address] [place] [address] [id number] Emergency [facility] [address] [place] [facility] [address] [place] [address] [id number] [place] Emergency [facility] [address] [place] [address] [place] [address] [id number] [place] [facility] Ad[facility] [address] [place] [address] [place] [address] [id number] Pre Admit [facility] [address] [place] [facility] [address] [place] [address] [id number] Emergency [facility] [address] [place] [address] [place] [address] [id number] [place] Pre Admit [facility] [address] [place] [address] [place] [address] [id number] Emergency [facility] [address] [place] [address] [place] [address] [id number] [place] Emergency [address] [place] [address] [id number] [place] Pre Admit [place] [id number] [place] [facility] [address] [place] [address] [id number] Pre Admit [address] [place] [phone] Emergency [address] [place] [address] [id number] [place] *Note: Encounters from your own facility or health system may be excluded. Allergies, Adverse Reactions, Alerts Allergen Type Severity Identification Date clavulanic acid drug allergy 1 [id number] clarithromycin drug allergy 1 [id number] celecoxib drug allergy 1 53146180 cephalexin drug allergy 1 [id number] NSAIDS (Non-Steroidal Anti-Inflamma drug allergy 1 68201096 amoxicillin drug allergy 1 89867890 Medications Name Date Quantity Days Supplied GPI Number
--- OUTSIDE RECORDS SUMMARY | 2024-12-17 19:21 | XMS_ITS | Encounter Summary ---
Author Organization [place] [address] Care Team Providers Care Bicycle Repairer Name Role Phone Lauro Cho MD Primary Care Provider [phone] Chris Schmidt MD Unavailable [facility] Primary Care Provider [phone] Encounter Details Date Type Department Care Team (Late st Contact Info) Description 05/19/2016 Refill [facility] [place] [address] [address] Lauro Cho MD [address] [facility] [address] Social History Tobacco Use Types Packs/Day [...] on file documented as of this encounter Ordered Prescriptions Prescription Sig Dispense Quantity Refills Last Filled Start Date End Date ciprofloxacin HCl (CIPRO) 500 mg Oral Tablet Take 1 Tab by mouth 2 times daily for 7 days. 14 Tab 05/19/2016 05/26/2016 documented in this encounter Miscellaneous Notes * Telephone Encounter - Lauro Cho MD - 05/19/2016 9:40 AM EST Cough, congestion. Sinus pressure. documented in this encounter Plan of Treatment Not on file documented as of this encounter Visit Diagnoses Not on filedocumented in this encounter Additional Health Concerns Infection Onset Date Last Indicated Resolved Time COVID-19 01/27/2022 01/27/2022 02/16/2022 10:1 2 PM EDT R/O COVID-19 05/02/2022 05/02/2022 05/02/2022 11:0 0 PM EST R/O C-Diff 06/21/2023 06/21/2023 06/21/2023 2:45 PM EST documented as of this encounter Care Teams Bicycle Repairer Relationship Specialty Start Date End Date Lauro Cho MD [address] [address] PCP - General Internal Medicine 01/06/13 04/23/24 Zakiya Gutierrez [address] [phone] PCP - General Clinic/Center - [facility] ([facility]) 04/24/24 Chris Schmidt MD [address] [address] Physician Internal Medicine-Gastroenterology 06/09/16 documented as of this encounter
--- OUTSIDE RECORDS SUMMARY | 2024-12-17 19:21 | XMS_ITS | Encounter Summary ---
Author Organization [place] [address] Care Team Providers Care Integrity Engineer Name Role Phone Chris Schmidt MD Unavailable Unavailable [facility] Primary Care Provider [phone] Reason for Visit * Reason Comments Medication Refill Encounter Details Date Type Department Care Team (Late st Contact Info) Description 11/06/2024 Refill [facility] [address] [place] [address] Lauro Cho MD [address] [place] [address] Medication Refill Social History Tobacco Use Types Packs/Day Years Used Date Smoking Tobacco: Every Day Cigarettes 0.5 23.6 Started: 05/24/2001 Passive Smoke Exposure: Current Smokeless Tobacco: Never Alcohol Use Standard Drinks/Week Comments No 0 (1 standard drink = 0.6 oz pur e alcohol) [facility] Utilities Answer Date Recorded In the past 12 months has [employer], gas, oil, or water [employer] threatened to shut off services in your home? No 06/29/2023 Overall Financial Resource Strain (CARDIA) Answe r Date Recorded How hard is it for you to pa y for the very basics like food, housing, medical care, and heating? Not very hard 06/29/2023 PHQ-2 Answer Date Recorded PHQ-2 Total Score 0 06/29/2023 [facility] Occupat ional Health - Occupational Stress [...] place to sleep or slept in a longterm (including now)? No 06/29/2023 [facility] IP Transportation Answer D ate Recorded In [...] hearing? Answer Date of Assessment Author No 07/02/2023 10:07 AM Kacey Krishnamurthy RN * Is the person blind or does he/she have serious difficulty seeing even when wearing glasses? Answer Date of Assessment Author No 07/02/2023 10:07 AM Kacey Krishnamurthy RN * Does this person have serious difficulty walking or climbing stairs? Answer Date of Assessment Author No 07/02/2023 10:07 AM Kacey Krishnamurthy RN * Does this person have difficulty dressing or bathing? Answer Date of Assessment Author No 07/02/2023 10:07 AM Kacey Krishnamurthy RN * Because of a physical, mental or emotional condition, does this person have difficulty doing errands alone such as visiting a doctor's office or shopping? Answer Date of Assessment Author No 07/02/2023 10:07 AM Kacey Krishnamurthy RN documented as of this encounter Mental Status * Because of a physical, mental or emotional condition, does this person have serious difficulty concentrating, remembering or making decisions? Answer Entry Date Author No 07/02/2023 10:07 AM Kacey Krishnamurthy RN documented in this encounter Plan of Treatment Not on file documented as of this encounter Goals Goal Patient Goal Type Associated Problems Recent Progress Patient-Stated? Author Eat better, exercise, reach an ideal body weight General No Bedoya, Mounika N, RMA Stay Tobacco Free Lifestyle No Bedoya Mounika N, RMA documented as of this encounter Visit Diagnoses Diagnosis Atypical chest pain Other chest pain documented in this encounter Care Teams Integrity Engineer Relationship Specialty Start Date End Date Zakiya Gutierrez [address] [address] PCP - General Clinic/Center - [facility] ([facility]) 04/24/24 Chris Schmidt MD Physician Internal Medicine-Gastroenterology 06/09/16 documented as of this encounter
--- OUTSIDE RECORDS SUMMARY | 2024-12-17 19:21 | XMS_ITS | Clinical Summary ---
Author Organization [facility] Address [address] [place] [address] Care Team Providers Care Analytical Statistician Name Role Phone Provider, External Primary Care Provider Unavail able Social History Tobacco Use Types Packs/Day Years Used Date Smoking Tobacco: Never Assessed Comments Unknown Sex and Gender Information Value Date Recorded Sex Assigned at Not on file Legal Sex Female 10:24 PM EDT Gender Identity Not on file Sexual Orientation Not on file Plan of Treatment Health Maintenance Due Date Last Done Comments [facility]-Depression Screening 1989 [facility]-Infant/Child/Adol SDOH Screenings 1989 [facility]-Varicella Vaccines (1 of 2 - 13+ 2-dose series) 2002 [facility]- SDOH Screenings 09/30/2007 [facility]-Adult SDOH Screenings 09/30/2007 [facility]-Pap Smear 2010 HPV Vaccines (3 - 3-dose series) 02/10/2012 10/30/2011, 08/10/2011 [facility]-Cervical Cancer Screening 09/30/2019 [facility]-HPV/Cotest 09/30/2019 [facility]-DTaP,Tdap,and Td Vaccines (2 - Td or Tdap) 08/17/2023 08/16/2013 [id number] Vaccine ( - season) 2024 [facility]-Influenza Vaccine (#1) 2025 [facility]-Zoster Vaccines (1 of 2) 09/30/2039 [facility]-Hepatitis B Vaccines Completed 001, 09/28/2000, 08/10/2000 [facility]-HIB Vaccines Aged Out No longer e ligible based on patient's age to complete this topic [facility]-Hepatitis A Vaccines Aged Out No longer eligible based on patient's age to complete this topic [facility]-IPV Vaccines Aged Out No longer e ligible based on patient's age to complete this topic [facility]-Pneumococcal Vaccine: Pediatrics (0 to 5 Years) and At-Risk Patients (6 to 49 Years) Aged Out No longer eligible b ased on patient's age to complete this topic [facility]-Rotavirus Vaccines Aged Out No lo nger eligible based on patient's age to complete this topic Insurance [employer] Care Teams Analytical Statistician Relationship Specialty Start Date End Date Provider, External PCP - General 02/02/23
--- OUTSIDE RECORDS SUMMARY | 2024-12-17 19:21 | XMS_ITS | Clinical Summary ---
Author Organization [facility] Address [address] [place] [address] Care Team Providers Care Otolaryngology Teacher Name Role Phone Unavailable Primary Care Provider Unavailabl e Source Comments [facility] is fully rolled out with thefollowing exceptions:General Clinical Research [facility] Social History Tobacco Use Types Packs/Day Years Used Date Smoking Tobacco: Never Assessed Comments Unknown Sex and Gender Information Value Date Recorded Sex Assigned at Not on file Legal Sex Female 5:16 AM EST Gender Identity Not on file Sexual Orientation Not on file Plan of Treatment Health Maintenance Due Date Last Done Comments MMR IMMUNIZATION (1 of 1 - S tandard series) 1990 DTAP/Tdap/Td IMMUNIZATION (1 - Tdap) 1996 VARICELLA IMMUNIZATION (1 of 2 - 13+ 2-dose series) 2002 HEPATITIS B IMMUNIZATION (1 of 3 - 19+ 3-dose series) 2008 COVID-19 Vaccine ( - 2023-2 5 season) 2024 AMB SEASONAL FLU VACCINE (#1) 01/22/2025 HIB IMMUNIZATION Aged Out No longer e ligible based on patient's age to complete this topic HPV IMMUNIZATION Aged Out No longer e ligible based on patient's age to complete this topic IPV IMMUNIZATION Aged Out No longer e ligible based on patient's age to complete this topic MCV4 IMMUNIZATION Aged Out No longer eligible based on patient's age to complete this topic MENINGOCOCCAL B VACCINE Aged Out No l onger eligible based on patient's age to complete this topic PNEUMOCOCCAL IMMUNIZATION Aged Out No longer eligible based on patient's age to complete this topic Respiratory Syncytial Virus (RSV) <20mo Aged Out No longer eligible b ased on patient's age to complete this topic
[2024-12-17 19:22] LABS: Microscopic, Urine URINE MICROSCOPIC (MICROSCOPIC)
[2024-12-17 19:39] LABS: Hematocrit 43.4 % (37.0-47.0); Hemoglobin 15.6 g/dL (12.2-16.2); Immature Granulocytes % 0.3 %; Mean Corpuscular HGB Conc 35.9 g/dL (31.8-35.4); Mean Corpuscular Hemoglobin 31.8 pg (27.0-31.2); Mean Corpuscular Volume 88.4 fl (81-99); Nucleated Red Blood Cells % 0 %; Platelet Count 284 K/mm3 (142-424); Red Blood Count 4.91 M/mm3 (4.20-5.40); Red Cell Distribution Width-SD 39.2 fL; White Blood Count 10.6 K/mm3 (4.8-10.8)
[2024-12-17 19:41] LABS: Albumin Level 4.8 g/dl (3.5-5.0); Chloride 106 mmol/L (98-107); Potassium 3.8 mmoL/L (3.5-5.1); Sodium 135 mmol/L (136-145)
[2024-12-17] MEDS: ONDANSETRON 4MG/2ML VIAL 4 MG IV (19:41)
[2024-12-17] MEDS: 0.9 % SODIUM CHLORIDE 1000ML 1,000 ML 999 ML IV (19:41)
[2024-12-17] MEDS: KETOROLAC 30MG/ML VIAL 15 MG IV (19:41)
[2024-12-17 19:43] LABS: Blood Urea Nitrogen 13 mg/dl (7-17); Creatinine Clearance Estimated 187 mL/min (50-200); Creatinine,Serum 0.60 mg/dl (0.52-1.04); Estimated Glomerular Filt Rate 114 ml/min (>60); GFR (African American) 138 ML/MIN (>60)
[2024-12-17 19:44] LABS: Alanine Aminotransferase 21 U/L (12-78); Albumin/Globulin Ratio 1.4 (1.1-1.8); Alkaline Phosphatase 61 U/L (38-126); Anion Gap 10.8 mEq/L (5-15); Aspartate Amino Transferase 33 U/L (14-36); Bilirubin,Total 0.5 mg/dl (0.2-1.3); Calcium 9.7 mg/dl (8.4-10.2); Carbon Dioxide 22 mmol/L (22.0-30.0); Globulin 3.4 g/dL (1.3-3.2); Glucose 98 mg/dl (74-100); Lipase 145 U/L (23-300); Total Protein,Serum 8.2 g/dl (6.3-8.2)
[2024-12-17 19:59] LABS: Bilirubin,Urine Negative (Negative); Color,Urine YELLOW (Yellow); Glucose,Urine (UA) Negative (Negative); Ketones,Urine Negative (Negative); Leukocyte Esterase,Urine Negative (Negative); PH,Urine 6.0 (5.0-8.5); Protein,Urine Negative (Negative); Specific Gravity, Urine <= 1.005 (1.005-1.030); Urobilinogen,Urine 0.2 EU/dl (0.2)
[2024-12-17 20:02] LABS: Urine Pregnancy, HCG Qual. Negative (Negative)
[2024-12-17] MEDS: IOPAMIDOL-370 (76%);100ML BOTTLE 75 ML IV (20:13)
[2024-12-17] MEDS: SODIUM CHLORIDE 0.9% 10ML SYR (RAD ONLY) 10 ML IV (20:13)
[2024-12-17 20:21] LABS: RBC,Urine Occasional #/hpf (0-3)
[2024-12-17] MEDS: HYDROMORPHONE 2MG/ML SYRINGE 0.5 MG IV (20:41)
[2024-12-17] MEDS: TAMSULOSIN 0.4MG CAPSULE 0.4 MG PO (20:41)
== END 2024-12-17 21:58 | disposition home or self-care (01) ==
PROVIDERS: Physician Assistant; Emergency Provider Student in an Organized Health Care Education/Training Program; PCP Nurse Practitioner
DX: R10.11 Right upper quadrant pain (principal); R35.0 Frequency of micturition; F17.210 Nicotine dependence, cigarettes, uncomplicated
CPT/HCPCS: 74177; 80053; 81001; 81025; 83690; 85025; 96361; 96374; 96375; 99285; J1171; J1885; J2405; J7030; Q9967

== ENCOUNTER 2025-05-23 20:28 | Emergency (ER) | payer MEDICAID, SELFPAY ==
--- OUTSIDE RECORDS SUMMARY | 2022-04-24 08:35 | XMS_ITS | Continuity of Care Document ---
Author Organization [facility] Address [address] [place] [address] Phone Care Team Providers Care Retail Event Coordinator Name Role Phone Zay Moore MD Unavailable Unavailable Allergies, Adverse Reactions, Alerts Substance Reaction Status Criticality AMOXICILLIN TRIHYDRATE Active No In formation Medications Medication Instructions Dosage Effective Dates (start - stop) Status Comments diclofenac sodium 75 mg tablet,delayed release take 1 tablet by oral route 2 times every day 75 MG - Active Medrol (Magan) 4 mg tablets in a dose pack take by Oral route follow instructions on box Not Available - Active Procedures Procedure Date Office/outpatient visit,est, mod 2021 Office/outpatient visit,new, mod 2021 Office/outpatient visit,new, mod 2021 X-ray exam lower spine 2-3 views 2021 X-RAY EXAM HIPS BI 2 VIEWS Advance Directives Directive Yes / No Effective Date File Name No Information Encounters Encounter Description Practice Location Reason(s) For Visit Diagnoses Date Provider Providers Copied on Encounter Office/outpa tient visit,est, mod [facility], [address] [place], [address], tel:[phone] [address] [place] [address] Other specified joint disorders, left hip 2 Oscar Collazo. [address] [facility] [place], [place], [id number] . tel:[phone] Referring Provider: Zay Manzanares, [address], [facility] [place], [address] . tel:[phone] [facility], [facility] [address], [place], [address], [place] tel:[phone] [facility] No Information 2 Oscar Collazo. [address], [place], [place], [id number] . tel:[phone] Office/outpa tient visit,[facility], [address], [place], [address], [place] tel:[phone] [facility] Spondylosis w/o myelopathy or radiculopathy, lumbar regionRadiculopa thy, lumbar regionTrochanter ic bursitis, left hip 2 Bautista Amanda. [address], [place], [place], [id number] , . tel:[phone] Referring Provider: Lauro dong, [facility] [address], [place], [address] . tel:[phone] Office/outpa tient visit,[facility], [facility] [place], [address], [place] tel:[phone] [facility] Other specified joint disorders, left hip 2 Oscar Collazo. [address], [place], [place], [id number] . tel:[phone] Referring Provider: Zay Manzanares, [address], [facility] [place], [address] . tel:[phone] Family History Family Member Type Diagnosis Age At Onset Father Problem (finding) Family history of Spine Disorder Mother Problem (finding) Family history of Spine Disorder Payers Payer name Insurance type Covered constitution party ID Authorsamaraa titushar(s) [employer] Medicaid CI [id number] Social History Type Description Quantity Date Captured Comments Sex Female Smoking Status No Information Chief Complaint And Reason For Visit No Information Reason For Referral Reason For Referral No Information Plan Of Treatment Date Type Action Status Future Order: Radiology Order MR I Hip W Contrast ([id number]), Ordered on: Ordered History Of Present Illness Encounter Date Complaint History Of Prese nt Illness hip Functional Status Date Functional Assessmen t No Information Instructions Date Instruction Additional Infor mation No Information Assessments Type Assessment Date No Information Patient Care Teams Name Effective Dates (start - stop) Status Members No Information
--- OUTSIDE RECORDS SUMMARY | 2025-05-20 22:15 | XMS_ITS | Encounter Summary ---
Author Organization [facility] [place] [address] Care Team Providers Care Direct Customer Service Representative Name Role Phone Chris Schmidt MD Unavailable [facility] Primary Care Provider [phone] Reason for Visit * Reason Comments Flank Pain Pt c/o right flank p ain that started this morning and has gotten progressively worse. CPTA: Ibuprofen Encounter Details Date Type Department Care Team (Late Contact Info) Description 05/20/2025 10:15 PM EST - 05/21/2025 12:48 AM EST Emergency [facility] [place] [address] Jaylyn Jean MD [facility] EMERGENCY DEPT [address] [place] [address] Pleuritic pain (Primary Dx) Discharge Disposition: Home or Self Care Social History Tobacco Use Types Packs/Day Years Used Date Smoking Tobacco: Every Day Cigarettes 0.5 24 Started: 05/24/2001 Passive Smoke Exposure: Current Smokeless Tobacco: Never Alcohol Use Standard Drinks/Week Comments No 0 (1 standard drink = 0.6 oz pur e alcohol) [facility] Utilities Answer Date Recorded In the past 12 months has e electric, gas, oil, or water company threatened to shut off services in your home? No 06/29/2023 Overall Financial Resource Strain (CARDIA) Answe r Date Recorded How hard is it for you to pa y for the very basics like food, housing, medical care, and heating? Not very hard 06/29/2023 PHQ-2 Answer Date Recorded PHQ-2 Total Score 0 06/29/2023 [facility] [place] [facility] - Occupational Stress [...] place to sleep or slept in a fci (including now)? No 06/29/2023 [facility] IP Transportation Answer D ate Recorded In [...] on file documented as of this encounter Last Filed Vital Signs Vital Sign Reading Time Taken Comments Blood Pressure 130/81 05/21/2025 12:00 AM EST Pulse 84 05/20/2025 11:49 PM EST Temperature 36.9 C (98.5 F) 05/20/2025 10:14 PM EST Respiratory Rate 16 05/20/2025 11:49 PM EST Oxygen Saturation 98% 05/21/2025 12:30 AM EST Inhaled Oxygen Concentration - - Weight 98.9 kg (218 lb) 05/20/2025 10:14 PM EST Height - - Body Mass Index 39.87 03/18/2025 8:48 PM EDT documented in this encounter Functional Status * Is the person deaf or does he/she have serious difficulty hearing? Answer Date of Assessment Author No 07/02/2023 10:07 AM Kaecy Krishnamurthy RN * Is the person blind [...] Assessment Author No 07/02/2023 10:07 AM Kacey Krishnamruthy RN * Because of a physical, mental or emotional condition, does this person have difficulty doing errands alone such as visiting a doctor's office or shopping? Answer Date of Assessment Author No 07/02/2023 10:07 AM Kacey Krishnamurthy RN * Suicide Severity Rating Answer Date of Assessment Author No Risk 05/20/2025 10:23 PM Amaury Brandt RN * [place] Suicide Severity Rating Scale (Q shift for moderate and high) Question Answer Date of Assessment Author 1. In the past month, have y ou wished you were or wished you could go to sleep and not wake up? 0 05/20/2025 10:23 PM Abigail Pierre RN 2. In the past month, have y ou actually had any thoughts of killing yourself? (If no, skip to question 6) 0 05/20/2025 10:23 PM Abigail Brandt RN 6. Have you ever done anythi ng, started to do anything, or prepared to do anything to end your life? 0 05/20/2025 10:23 PM EST Abigail Purvis ch, RN documented as of this encounter Mental Status * Because of a physical, mental or emotional condition, does this person have serious difficulty concentrating, remembering or making decisions? Answer Entry Date Author No 07/02/2023 10:07 AM EST Kacey Gonzalez RN documented in this encounter Discharge Instructions * Discharge Instructions* Jaylyn Jean MD - 05/21/2025 12:28 AM EST Follow-up with your family doctor. documented in this encounter Medications at Time of Discharge albuterol (PROVENTIL;VENTOLIN) 2 mg/5 mL Oral SyrupIndications:Acu te bronchitis, unspecified organism,Acute cough Take 5 mL by mouth 4 times daily as needed (cough). 120 mL 1 02/25/2024 cetirizine (ZYRTEC) 10 mg Oral TabletIndications:Ac [place] bacterial sinusitis TAKE 1 TABLET BY MOUTH EVERY DAY 30 Tablet 03/29/2024 loratadine (CLARITIN) 10 mg Oral Tablet Take 1 Tablet by mouth daily. 30 Tablet 2 10/07/2023 omeprazole (PRILOSEC) 40 mg Oral Capsule, Delayed Release(E.C.)Indicat ions:Atypical chest pain Take 1 Capsule by mouth daily. 30 Capsule 2 01/04/2024 predniSONE (DELTASONE) 20 mg Oral Tablet Take 3 Tablets by mouth daily for 5 days. 15 Tablet 05/21/2025 promethazine-dextrom ethorphan (PROMETHAZINE-DM) 6.25-15 mg/5 mL Oral Syrup Take 5 mL by mouth every 6 hours as needed. 118 mL 03/06/2024 topiramate (TOPAMAX) 100 mg Oral TabletIndications:Mor ronloida nonintractable headache, unspecified headache type TAKE 1 TABLET BY MOUTH TWICE A DAY 60 Tablet 04/04/2024 traZODone (DESYREL) 100 mg Oral Tablet TAKE 1 TABLET BY MOUTH EVERY DAY AT NIGHT 100 Tablet 03/06/2024 documented as of this encounter Ordered Prescriptions Prescription Sig Dispense Quantity Refills Last Filled Start Date End Date predniSONE (DELTASONE) 20 mg Oral Tablet Take 3 Tablets by mouth daily for 5 days. 15 Tablet 05/21/2025 documented in this encounter Discharge Disposition Disposition Code Departure Means Destination Comment s Home or Self Correction documented in this encounter ED Notes * Jaylyn Jean MD - 05/20/2025 9:40 PM EST Chief Complaint Patient presents with Flank Pain Pt c/o right flank pain that started this morning and has gotten progressively worse. CPTA: Ibuprofen Patient is a 34-year-old female who presents with right sided thoracic pain that started around 10:00 this morning after roughhousing with her son. She has a slight cough and it hurts to take a deep breath. Denies any vomiting. Has some nausea from the pain. Denies any history of DVT/PE. No recent long periods of immobility. No lower extremity swelling that is new. No estrogen containing products. Denies any urinary symptoms. Patient History Allergies[1] Home Medications: Prior to Admission medications Medication Sig Start Date End Date Last Dose Authorizing Provider albuterol (PROVENTIL;VENTOLIN) 2 mg/5 mL Oral Syrup Take 5 mL by mouth 4 times daily as needed (cough). 02/25/24 Betsy Lazo APRN cetirizine (ZYRTEC) 10 mg Oral Tablet TAKE 1 TABLET BY MOUTH EVERY DAY 03/29/24 Lauro Cho MD loratadine (CLARITIN) 10 mg Oral Tablet Take 1 Tablet by mouth daily. 10/07/23 Lauro Cho MD omeprazole (PRILOSEC) 40 mg Oral Capsule, Delayed Release(E.C.) Take 1 Capsule by mouth daily. 01/04/24 Lauro Cho MD predniSONE (DELTASONE) 20 mg Oral Tablet Take 3 Tablets by mouth daily for 5 days. 05/21/25 05/26/25 Jaylyn Jean MD promethazine-dextromethorphan (PROMETHAZINE-DM) 6.25-15 mg/5 mL Oral Syrup Take 5 mL by mouth every6 hours as needed. 03/06/24 Gemma Wayne APRN topiramate (TOPAMAX) 100 mg Oral Tablet TAKE 1 TABLET BY MOUTH TWICE A DAY 04/04/24 Lauro Cho MD traZODone (DESYREL) 100 mg Oral Tablet TAKE 1 TABLET BY MOUTH EVERY DAY AT NIGHT 03/06/24 Lauro Cho MD Past Medical History: Past Medical History[2] Social History: reports that she has been smoking cigarettes. She started smoking about 24 years ago. She has a 13 pack-year smoking history. She has been exposed to tobacco smoke. She has never usedsmokeless tobacco. She reports being sexually active and has had partner(s) who are male. She reports that she does not drink alcohol and does not use drugs. E-Cigarettes (such as Vapes or Juul) E-Cigarette Use Never User Family History: Family History[3] Surgical History: Surgical History[4] Review of Systems Review of Systems All other systems reviewed and are negative. Physical Exam Blood pressure 130/81, pulse 84, temperature 98.5 ??F (36.9 ??C), temperature source Oral, resp. rate 16, weight 218 lb (98.9 kg), SpO2 98%, not currently . Physical Exam Vitals and nursing note reviewed. Constitutional: Appearance: She is not toxic-appearing. HENT: Head: Atraumatic. Eyes: Conjunctiva/sclera: Conjunctivae normal. Cardiovascular: Rate and Rhythm: Normal rate and regular rhythm. Pulmonary: Comments: Clear breath sounds bilaterally. Reproducible tenderness in the right mid to lower thoracic posterior Musculoskeletal: General: No swelling or tenderness. Cervical back: Neck supple. Skin: General: Skin is warm. Capillary Refill: Capillary refill takes less than 2 seconds. Neurological: Mental Status: She is alert and oriented to person, place, and time. Psychiatric: Mood and Affect: Mood normal. Procedures Radiology/EKG/Labs: Labs Reviewed BASIC METABOLIC PANEL - Abnormal Result Value Sodium 134 (*) Potassium 3.6 Chloride 99 Total CO2 24 Anion Gap 11 Calcium 9.3 Glucose Lvl 83 BUN 12 Creatinine 0.94 eGFR (CKD-EPIcr 2020) 80 URINALYSIS REFLEX - Abnormal UA Color Colorless UA Appear Clear UA Glucose Negative UA Ketones Negative UA Blood 1+ (0.06 - 0.1 mg/dL) (*) UA pH 6.5 UA Protein Negative UA Urobilinogen Normal UA Bili Negative UA Nitrite Negative UA Leuk Est Negative UA Spec Grav 1.011 UA WBC <1 UA RBC 2 UA Squam Epi 3+ CBC WITH DIFF - Abnormal WBC 11.3 (*) RBC 4.72 Hgb 15.2 Hct 42.8 MCV 90.7 MCH 32.2 MCHC 35.5 RDW 11.8 Platelet 235 MPV 9.7 Neut Percent 53.4 Imm Gran% 0.1 Lymph Percent 35.2 [place] Percent 7.6 Eos Percent 3.1 Baso Percent 0.6 Neut # 6.0 IMMGRAN# 0.0 Lymph # 4.0 (*) [place] # 0.9 Eos# 0.4 Baso # 0.1 HUMAN CHORIONIC GONADOTROPIN QUANTITATIVE - Normal Hcg Quant <1 Narrative: Female (non-): 0-4.9 mIU/mL Female (postmenopausal): 0-8.1 mIU/mL Indeterminate values for (e.g., 5-25 mIU/mL) may be confirmed with a repeat test in 48-72hours. Values in should double every 2-3 days for the first six weeks. Ingestion of armida doses of biotin (>5 mg/day) taken within 8 hours of drawing blood sample can interfere with this immunoassay test. D-DIMER - Normal D-Dimer 289 HEPATIC FUNCTION PANEL - Normal Total Protein 7.1 Albumin 4.4 Bili Direct <0.2 Bili Total 0.3 AST 23 ALT 31 Alk Phos 60 LIPASE LEVEL - Normal Lipase Lvl 39 UA W/REFLEX TO CULTURE Narrative: The following orders were created for panel order UA W/REFLEX TO CULTURE. Procedure Abnormality Status --------- ------ URINALYSIS REFLEX[[id number]] Abnormal Final result EXTRA JURADO URINE CX[[id number]] Final result Please view results for these tests on the individual orders. XR CHEST PA AND LATERAL Final Result No acute findings. Note: Radiology results need to be interpreted within a comprehensive clinical context. If you have questions about the radiology report, please contact the office of the ordering clinician. EK EKG 12 LEAD ED Interpretation Twelve-lead EKG interpreted by me: Sinus rhythm rate 64, MN 164, QRS 103, QTc 389. No acute ST segment changes ED Course: Appropriate laboratory and radiology studies reviewed Patient is a 34-year-old female who presents to the emergency department today for evaluation. X-ray ordered. Cardiac workup ordered as well. D-dimer ordered and negative. Do not suspect pulmonary embolism with negative D-dimer as she is low risk by Wells criteria. Patient with pleuritic discomfort and a smoker so we will discharge her with a course of prednisoneafter a dose of Solu-Medrol here in the emergency department. Her chest x-ray without any infiltrate so do not feel she needs any antibiotics. ED Clinical Impression: Right sided thoracic discomfort Critical Care time MDM Medical Decision Making Problems Addressed: Pleuritic pain: complicated acute illness or injury Amount and/or Complexity of Data Reviewed Labs: ordered. Radiology: ordered. Risk Prescription drug management. Condition at Discharge/Transfer from Department: Stable This chart was completed using voice recognition technology and may contain unintended errors [1] Allergies Allergen Reactions Buspar [Buspirone] Diarrhea Azithromycin Other (See Comments) Tongue swelling Biaxin [Clarithromycin] Hives Keflex [Cephalexin] Nausea And Vomiting [2] Past Medical History: Diagnosis Date Anesthesia irritable when wakes up Bulging disc Constipation Cough instructed to notify Dr Santana Headache migraine Herniated disc IUD contraception 03/21/14 threads trimmed 03/23/14 Mood disorder 07/24/2020 Motion sickness Rh incompatibility Stomach ulcer [3] Family History Problem Relation Age of Onset Loud Snoring Father Colon Cancer Maternal Aunt Emphysema Maternal Grandmother Sleep Apnea Maternal Grandmother Diabetes Paternal Grandmother Emphysema Paternal Grandmother Esophageal Cancer Neg Hx Anesth Problems Neg Hx [4] Past Surgical History: Procedure Laterality Date BACK SURGERY SECTION Bilateral 08/15/2013 Primary section with low transverse skin incision at 0549 and low transverse uterine incision at 0552. ; Surgeon: Betsy Santana MD; Location: [facility]; Service: Gynecology CHOLECYSTECTOMY N/A 07/01/2023 ROBOTIC CHOLECYSTECTOMY; Surgeon: Adriel Haji DO; Location: [facility] OR; Service: Robotics COLONOSCOPY DENTAL SURGERY ENDOMETRIAL ABLATION N/A 07/19/2015 ENDOMETRIAL ABLATION WITH NOVASURE DILATION AND CURETTAGE HYSTEROSCOPY ; Surgeon: David Santana MD; Location: ED MAIN OR; Service: Gynecology FOREARM FRACTURE SURGERY Right & Left arms age 10 yo ? broke one & then the other & then rebroke the other one again, on bikes & rollerblades INTRAUTERINE DEVICE INSERTION removed in 2014 IR 2 LEVEL TRANSFORAMINAL EPIDURAL INJ LUMBAR SPINE 11/03/2021 IR 2 LEVEL TRANSFORAMINAL EPIDURAL INJ LUMBAR SPINE 11/03/2021 Tony Gonzalez MD [facility] IMAGING LUMBAR DISC SURGERY N/A 12/12/2019 L4/5 DISCECTOMY; Surgeon: Maurizio Jones MD; Location: [facility] MAIN OR; Service: Spine LUMBAR DISC SURGERY N/A 12/25/2021 L4/5 REVISION DISCECTOMY ; Surgeon: Maurizio Jones MD; Location: [facility] MAIN OR; Service: Spine UPPER GASTROINTESTINAL ENDOSCOPY WISDOM TOOTH EXTRACTION Jaylyn Jean MD 05/21/25 0531 documented in this encounter Plan of Treatment Not on file documented as of this encounter Goals Goal Patient Goal Type Associated Problems Recent Progress Patient-Stated? Author Eat better, exercise, reach an ideal body weight General No Bedoya, Mounika N, RMA Stay Tobacco Free Lifestyle No Bedoya, Mounika N, RMA documented as of this encounter Procedures Procedure Name Priority Date/Time Associated Diagnosis Comments SCANNED EKG 05/22/2025 12:31 PM EST XR CHEST PA AND LATERAL STAT 05/20/2025 11:29 PM EST URINALYSIS REFLEX STAT 05/20/2025 10: 45 PM EST UA W/REFLEX TO CULTURE STAT 05/20/2025 10:45 PM EST EXTRA JURADO URINE CX STAT 05/20/2025 1 0:45 PM EST D-DIMER STAT 05/20/2025 10:35 PM EST CBC WITH DIFF STAT 05/20/2025 10:35 PM EST HUMAN CHORIONIC GONADOTROPIN QUANTITATIVE STAT 05/20/2025 10:35 PM EST LIPASE LEVEL STAT 05/20/2025 10:35 PM EST HEPATIC FUNCTION PANEL STAT 05/20/2025 10:35 PM EST BASIC METABOLIC PANEL STAT 05/20/2025 10:35 PM EST EK EKG 12 LEAD STAT 05/20/2025 10:28 PM EST SALINE LOCK IV STAT 05/20/2025 9:41 PM EST documented in this encounter Results * SCANNED EKG (05/22/2025 12:31 PM EST) Anatomical Region Laterality Modality Other 05/22/2025 12:3 1 PM EST us Unknown Provider IMG ECG ORDERABLES Final Result * XR CHEST PA AND LATERAL (05/20/2025 11:29 PM EST) Anatomical Region Laterality Modality Chest Radiographic Jenni ging 05/20/2025 11:2 9 PM EST Impressions 05/20/2025 11:36 PM EST No acute findings. Note: Radiology results need to be interpreted within a comprehensive clinical context. If you have questions about the radiology report, please contact the office of the ordering clinician. Narrative 05/20/2025 11:36 PM EST CLINICAL HISTORY: -right sided thoracic pain - cough. COMPARISON: 03/18/2025. TECHNIQUE: XR CHEST PA AND LATERAL on 05/20/2025 11:29 PM. FINDINGS: The lungs are clear. There is no pneumothorax or pleural effusion. The heart size and pulmonary vascularity are normal. The upper abdomen and osseous structures are unremarkable. Procedure Note Maurizio Coreas MD - 05/20/2025 CLINICAL HISTORY: -right sided thoracic pain - cough. COMPARISON: 03/18/2025. TECHNIQUE: XR CHEST PA AND LATERAL on 05/20/2025 11:29 PM. FINDINGS: The lungs are clear. There is no pneumothorax or pleuraleffusion. The heart size and pulmonary vascularity are normal. The upper abdomen andosseous structures are unremarkable. IMPRESSION: No acute findings. Note: Radiology results need to be interpreted within a comprehensiveclinical context. If you have questions about the radiology report, please contactthe office of the ordering clinician. Jaylyn Jean MD IMG DIAGNOSTIC IMAGING ORDERAB LES Final Result * EXTRA JURADO URINE CX (05/20/2025 10:45 PM EST) Urine STRUCTURE OF URINARY TRACT PROPER / Unknown 05/20/2025 10:45 PM EST 05/20/2025 10:50 PM EST Jaylyn Jean MD MICROBIOLOGY - GENERAL ORDERAB LES Final Result [place] [id number] * (ABNORMAL) URINALYSIS REFLEX (05/20/2025 10:45 PM EST) UA Color Colorless 05/20/2025 10:57 PM EST [facility] UA Appear Clear Clear 05/20/2025 10:57 PM EST [facility] UA Glucose Negative Negative mg/dL 05/20/2025 10:57 PM EST [facility] UA Ketones Negative Negative mg/dL 05/20/2025 10:57 PM EST [facility] UA Blood 1+ (0.06 - 0.1 mg/dL)(A) Negative 05/20/2025 10:57 PM EST [facility] UA pH 6.5 5.0 - 8.0 pH 05/20/2025 10:57 PM EST [facility] UA Protein Negative Negative mg/dL 05/20/2025 10:57 PM EST [facility] UA Urobilinogen Normal <=1 mg/dL 10:57 PM EST [facility] UA Bili Negative Negative 05/20/2025 10:57 PM EST [facility] UA Nitrite Negative Negative 05/20/2025 10:57 PM EST [facility] UA Leuk Est Negative Negative 05/20/2025 10:57 PM EST [facility] UA Spec Grav 1.011 1.001 - 1.035 no units 05/20/2025 10:57 PM EST [facility] Comment:Reference range yudith d for random specimens only. UA WBC <1 0 - 4 /HPF 05/20/2025 10:57 PM EST [facility] UA RBC 2 0 - 3 /HPF 05/20/2025 10:57 PM EST [facility] UA Squam Epi 3+ /LPF 05/20/2025 10:57 PM EST [facility] Urine STRUCTURE OF URINARY TRACT PROPER / Unknown 05/20/2025 10:45 PM EST 05/20/2025 10:50 PM EST Jaylyn Jean MD URINE ORDERABLES Final Result Performing Organization Address City/[facility]/ZIP Co de Phone Number [facility] [address] [facility], [place] [address] * LIPASE LEVEL (05/20/2025 10:35 PM EST) Pathologist [facility] Lipase Lvl 39 13 - 60 U/L 05/20/2025 11:02 PM EST [facility] Blood VENOUS BLOOD / Unknown Venipuncture / Unknown 05/20/2025 10:35 PM EST 05/20/2025 10:41 PM EST us Jaylyn Jean MD CHEMISTRY ORDERABLES Final Res ult Performing Organization Address City/[facility]/ZIP Co de Phone Number [address] [address] * HEPATIC FUNCTION PANEL (05/20/2025 10:35 PM EST) Total Protein 7.1 6.4 - 8.3 gm/dL 05/20/2025 11:02 PM EST [facility] Albumin 4.4 3.5 - 5.2 gm/dL 05/20/2025 11:02 PM EST [facility] Bili Direct <0.2 0.0 - 0.3 mg/dL 05/20/2025 11:02 PM EST [facility] Bili Total 0.3 0.2 - 1.3 mg/dL 05/20/2025 11:02 PM EST [facility] AST 23 <=40 U/L 05/20/2025 11:02 PM EST [facility] ALT 31 <=41 U/L 05/20/2025 11:02 PM EST [facility] Alk Phos 60 36 - 123 U/L 05/20/2025 11:02 PM EST [facility] Blood VENOUS BLOOD / Unknown Venipuncture / Unknown 05/20/2025 10:35 PM EST 05/20/2025 10:41 PM EST Jaylyn Jean MD CHEMISTRY ORDERABLES Final Res ult Performing Organization Address [facility]/[place] [address] * D-DIMER (05/20/2025 10:35 PM EST) Pathologist [facility] D-Dimer 289 <=500 ng/mL FEU 05/20/2025 11:01 PM EST [facility] Comment:D dimer may be eleva kellie in a variety of clinical conditions beyond venous thromboembolism, including infection, inflammation, recent surgery, , and advanced age. Clinical correlation is recommended. An age-adjusted threshold has NOT been applied to this test result. Blood VENOUS BLOOD / Unknown Venipuncture / Unknown 05/20/2025 10:35 PM EST 05/20/2025 10:46 PM EST Jaylyn Jean MD HEMATOLOGY ORDERABLES Final Re sult Performing Organization Address [facility] Co de Phone Number [facility] [address] [place] [address], [address] [place] [phone] * (ABNORMAL) CBC WITH DIFF (05/20/2025 10:35 PM EST) WBC 11.3(H) 3.7 - 10.3 x10(3)/mcL 05/20/2025 10:48 PM EST [facility] RBC 4.72 3.90 - 5.20 x10(6)/mcL 05/20/2025 10:48 PM EST [facility] Hgb 15.2 11.2 - 15.7 g/dL 05/20/2025 10:48 PM [facility] Hct 42.8 34.0 - 45.0 % 05/20/2025 10:48 PM [facility] MCV 90.7 80.0 - 100.0 fL 05/20/2025 10:48 PM [facility] MCH 32.2 26.0 - 34.0 pg 05/20/2025 10:48 PM [facility] MCHC 35.5 30.7 - 35.5 g/dL 05/20/2025 10:48 PM [facility] RDW 11.8 <=14.9 % 05/20/2025 10:48 PM [facility] Platelet 235 155 - 369 x10(3)/mcL 05/20/2025 10:48 PM [facility] MPV 9.7 8.8 - 12.5 fL 05/20/2025 10:48 PM [facility] Neut Percent 53.4 % 05/20/2025 10:48 PM [facility] Comment:Neutrophils equals s egs plus bands Imm Gran% 0.1 % 05/20/2025 10:48 PM [facility] Comment:Automated count of m etamyelocytes, myelocytes and promyelocytes. Lymph Percent 35.2 % 05/20/2025 10:48 PM [facility] [place] Percent 7.6 % 05/20/2025 10:48 PM [facility] Eos Percent 3.1 % 05/20/2025 10:48 PM [facility] Baso Percent 0.6 % 05/20/2025 10:48 PM [facility] Neut # 6.0 1.6 - 6.1 x10(3)/mcL 05/20/2025 10:48 PM [facility] Comment:Neutrophils equals s egs plus bands IMMGRAN# 0.0 0.0 - 0.1 x10(3)/mcL 05/20/2025 10:48 PM [facility] Comment:Automated count of m etamyelocytes, myelocytes and promyelocytes. An absolute IG <0.1 is reported as 0.0. Lymph # 4.0(H) 1.2 - 3.9 x10(3)/mcL 05/20/2025 10:48 PM EST [facility] [place] # 0.9 0.3 - 0.9 x10(3)/mcL 05/20/2025 10:48 PM EST [facility] Eos# 0.4 0.0 - 0.5 x10(3)/mcL 05/20/2025 10:48 PM EST [facility] Baso # 0.1 0.0 - 0.1 x10(3)/[facility] 05/20/2025 10:48 PM EST [facility] Blood VENOUS BLOOD / Unknown Venipuncture / Unknown 05/20/2025 10:35 PM EST 05/20/2025 10:41 PM EST us Jaylyn Jean MD HEMATOLOGY ORDERABLES Final Re sult Performing Organization Address [facility] [place] [address] * HUMAN CHORIONIC GONADOTROPIN QUANTITATIVE (05/20/2025 10:35 PM EST) [facility] Hcg Quant <1 <5 mIU/mL 05/20/2025 11:05 PM EST [facility] Blood VENOUS BLOOD / Unknown Venipuncture / Unknown 05/20/2025 10:35 PM EST 05/20/2025 10:40 PM EST Narrative [facility] - 05/20/2025 11:05 PM EST Female (non-): 0-4.9 mIU/mL Female (postmenopausal): 0-8.1 mIU/mL Indeterminate values for (e.g., 5-25 mIU/mL) may be confirmed with a repeat test in 48-72 hours. Values in should double every 2-3 days for the first six weeks. Ingestion of armida doses of biotin (>5 mg/day) taken within 8 hours of drawing blood sample can interfere with this immunoassay test. us Jaylyn Jean MD CHEMISTRY ORDERABLES Final Res ult Performing Organization Address [facility]/ZIP Co de Phone Number [place] [phone] * (ABNORMAL) BASIC METABOLIC PANEL (05/20/2025 10:35 PM EST) Sodium 134(L) 136 - 145 mmol/L 05/20/2025 11:03 PM EST [facility] Potassium 3.6 3.5 - 5.0 mmol/L 05/20/2025 11:03 PM EST [facility] Chloride 99 98 - 107 mmol/L 05/20/2025 11:03 PM EST [facility] Total CO2 24 22 - 29 mmol/L 05/20/2025 11:03 PM [facility] Anion Gap 11 7 - 16 mmol/L 05/20/2025 11:03 PM [facility] Calcium 9.3 8.6 - 10.4 mg/dL 05/20/2025 11:03 PM [facility] Glucose Lvl 83 70 - 99 mg/dL 05/20/2025 11:03 PM [facility] BUN 12 6 - 20 mg/dL 05/20/2025 11:03 PM [facility] Creatinine 0.94 0.51 - 1.30 mg/dL 05/20/2025 11:03 PM [facility] eGFR (CKD-EPIcr 2020) 80 >=60 mL/min/1.7 3 m2 05/20/2025 11:03 PM [facility] Comment:Estimated GFR was ca lculated using the CKD-EPIcr (2020) equation refit without race. The equation is recommended by the National [employer] - [place] [employer]ph[employer] Task Force. Blood VENOUS BLOOD / Unknown Venipuncture / Unknown 05/20/2025 10:35 PM EST 05/20/2025 10:40 PM EST us Jaylyn Jean MD CHEMISTRY ORDERABLES Final Res ult [facility] [address] [place] [address] * EK EKG 12 LEAD (05/20/2025 10:28 PM EST) Anatomical Region Laterality Modality Electrocardiogra phy 05/20/2025 10:3 5 PM EST Impressions 05/21/2025 3:[address] [facility] Test Date: 2025-05-20 Pat Name: ERIKA BELLEVUE Department: DEPID Room: 20 Gender: Female [employer] Department Chair: : 1990 Requested By: JAYLYN JEAN A Order Number: [id number] Reading MD: Gregorio Graves MD Measurements Intervals [place] Rate: 64 P: 31 MN: 164 QRS: 8 QRSD: 103 T: 18 QT: 380 QTc: 393 Interpretive Statements SINUS RHYTHM Electronically Signed On 05-21-2025 15:58:46 EST by Gregorio Graves MD Narrative Procedure Note Gregorio Graves MD - 05/21/[address] [facility] Test Date: 2025-05-20 Pat Name: [facility] Department: DEPID Room: 20 Gender: Female [employer] Department Chair: : 1990 Requested By: JAYLYN JEAN A Order Number: [id number] Reading MD: Gregorio Graves MD Measurements Intervals [place] Rate: 64 P: 31 MN: 164 QRS: 8 QRSD: 103 T: 18 QT: 380 QTc: 393 Interpretive Statements SINUS RHYTHM Electronically Signed On 05-21-2025 15:58:46 EST by Gregorio Graves MD Jaylyn Jean MD IMG ECG ORDERABLES Final Resul t documented in this encounter Visit Diagnoses Diagnosis Pleuritic pain- Primary Painful respiration documented in this encounter Administered Medications Inactive Administered Medications - up to 1 most recent administrations Medication Order MAR Action Action Date Dose Rate Site lidocaine (ASPERCREME) 4 % patch 1 Patch 1 Patch, Transdermal, ONCE, 1 dose, On Wed05/21/25 at 0015, Remove patch after 12 hours, Administer over 12 Hours, Application site: right thoracic region Patch Applied 05/21/2025 12:26 AM EST 1 Patch Back methylPREDNISolone sodium succinate (Solu-MEDROL) injection 125 mg 125 mg, Intravenous, ONCE, 1 dose, On Wed05/21/25 at 0030 Given 05/21/2025 12:45 AM EST 125 mg sodium chloride 0.9% IV line flush 50 mL 50 mL, Intravenous, at 150-600 mL/hr, PRN, Starting on 05/20/25 at 2141, Until Wed05/21/25 at 0448, Line Care, Flush with a minimum of 20 mL after IVPB to insure complete administration of the dose. May use the saline infusion to back flush IVPB tubing as needed., Use this order to document priming and flushing IV line after medication administration. sodium chloride 0.9% syringe 5 mL 5 mL, Intravenous, PRN, Starting on 05/20/25 at 2141, Until Wed05/21/25 at 0448, Line Care, Flush with 5 mL saline pre/post IVP, and 5 mL prior to IVPB or blood product administration. Protocol for PERIPHERAL IV saline lock maintenance, flush with 3-5 mL saline syringe every 8 hours., Flush peripheral lines every 12 hours, central lines every 8 hours, and after IV medication documented in this encounter Active and Recently Administered Medications Times are shown in EST. Scheduled Medication Order 05/19/2025 05/20/2025 05/21/2025 ketorolac (TORADOL) injection 15 mg 15 mg, Intravenous, ONCE, 1 dose, On Wed05/21/25 at 0000, For IV Administration: Give undiluted over at least 15 seconds. Maximum IV dose is 30mg. For IM Administration: Give undiluted, slowly and deeply into the muscle. 0015 (Not Given - Pr ovider: Abigail Anderson RN - Reason: Contraindicated) lidocaine (ASPERCREME) 4 % patch 1 Patch 1 Patch, Transdermal, ONCE, 1 dose, On Wed05/21/25 at 0015, Remove patch after 12 hours, Administer over 12 Hours, Application site: right thoracic region 0026 (Patch Applied - Provider: Jojo Zhang RN)0048 (Due: Patch Removed - Provider: Automatic Discharge Provider - Comment: Time automatically adjusted from order being discontinued) methylPREDNISolone sodium succinate (Solu-MEDROL) injection 125 mg (COMPLETED) 125 mg, Intravenous, ONCE, 1 dose, On Wed05/21/25 at 0030 0045 (Given - Provid er: Jojo Zhang RN) PRN Medication Order 05/19/2025 05/20/2025 05/21/2025 sodium chloride 0.9% IV line flush 50 mL 50 mL, Intravenous, at 150-600 mL/hr, PRN, Starting on 05/20/25 at 2141, Until 05/21/25 at 0448, Line Care, Flush with a minimum of 20 mL after IVPB to insure complete administration of the dose. May use the saline infusion to back flush IVPB tubing as needed., Use this order to document priming and flushing IV line after medication administration. sodium chloride 0.9% syringe 5 mL 5 mL, Intravenous, PRN, Starting on 05/20/25 at 2141, Until Wed05/21/25 at 0448, Line Care, Flush with 5 mL saline pre/post IVP, and 5 mL prior to IVPB or blood product administration. Protocol for PERIPHERAL IV saline lock maintenance, flush with 3-5 mL saline syringe every 8 hours., Flush peripheral lines every 12 hours, central lines every 8 hours, and after IV medication documented in this encounter Orders Medications Ordered That Alli ht Not Have Been Administered Count Last Ordered Date First Ordered Date ketorolac (TORADOL) injection 15 mg 1 05/20 sodium chloride 0.9% IV line flush 50 mL 1 05/20/2025 sodium chloride 0.9% syringe 5 mL 1 025 IV Count Last Ordered Date First Orde red Date SALINE LOCK IV 1 05/20/2025 documented in this encounter Care Teams Direct Customer Service Representative Relationship Specialty Start Date End Date CamrynZakiya mckeon [address] [phone] PCP - General Clinic/Center - [facility] ([facility]) 04/24/24 Chris Schmidt MD Physician Internal Medicine-Gastroenterology 06/09/16 documented as of this encounter
[2025-05-23 20:41] VITALS: BP 123/78; PULSE 74; RESP 18; TEMP 37.2; O2SAT 98; BMI 39.4
--- OUTSIDE RECORDS SUMMARY | 2025-05-23 20:41 | XMS_ITS | Clinical Summary ---
[facility] Address [address] [place] [address] Phone Care Team Providers Care Boots And Shoes Supervisor Name Role Phone Cattle Care Worker Unavailable Unavailable Conditions or Problems No information available. Medications Medication Instructions Start Date Stop Date Generic Name [facility] Provider IBUPROFEN 600 MG TABS Take 1 tablet by mouth every six hours as needed for pain for 5-7 days ibuprofen [id number] Joanne Bhandari DMD IBU 800 MG TABS Take 1 tablet by mouth every eight hours pain ibuprofen [id number] Joanne Bhandari DMD AMOXICILLIN 875 MG TABS Take 1 tablet by mouth twice a day for 7 days amoxicillin [id number] evelyn Robertson DMD IBUPROFEN 600 MG TABS Take 1 tablet by mouth every six hours as needed for pain for 5-7 days ibuprofen [id number] Junie Robertson DMD AMOXICILLIN 875 MG TABS Take 1 tablet by mouth twice a day for 10 days amoxicillin [id number] evelyn Robertson DMD ACETAMINOPHEN 500 MG TABS Take 1 tablet by mouth every six to eight hours as needed for pain acetaminophen [id number] [facility] DMD Medications Administered No information available. Allergies, Adverse Reactions, Alerts Observed no known allergies at Results No information available. Plan of Care No information available. Procedures No information available. Vital Signs No information available. Immunizations No information available. Advance Directives No information available.
--- OUTSIDE RECORDS SUMMARY | 2025-05-23 20:42 | XMS_ITS | Encounter Summary ---
Author Organization [facility] [place] [address] Care Team Providers Care Career Consultant Name Role Phone Chris Schmidt MD Unavailable Unavailable [facility] Primary Care Provider [phone] Encounter Details Date Type Department Care Team (Latest Contact Info) Description 05/20/2025 Travel Social History Tobacco Use Types Packs/Day Years Used Date Smoking Tobacco: Every Day Cigarettes 0.5 24 Started: 05/24/2001 Passive Smoke Exposure: Current Smokeless Tobacco: Never Alcohol Use Standard Drinks/Week Comments No 0 (1 standard drink = 0.6 oz pur e alcohol) [facility] Utilities Answer Date Recorded In the past 12 months has [employer] electric, gas, oil, or water company threatened to shut off services in your home? No 06/29/2023 Overall Financial Resource Strain (CARDIA) Answe r Date Recorded How hard is it for you to pa y for the very basics like food, housing, medical care, and heating? Not very hard 06/29/2023 PHQ-2 Answer Date Recorded PHQ-2 Total Score 0 06/29/2023 [facility] [place] [facility] Occupat ional Health - Occupational Stress [...] place to sleep or slept in a intermediate (including now)? No 06/29/2023 [facility] IP Transportation Answer D ate Recorded In [...] reach an ideal body weight General No BedoyaMounika srinivasan N, RMA Stay Tobacco Free Lifestyle No Mounika Bedoya N, RMA documented as of this encounter Visit Diagnoses Not on filedocumented in this encounter Care Teams Career Consultant Relationship Specialty Start Date End [facility] [address] [place] [address] PCP - General Clinic/Center - [facility] ([facility]) 04/24/24 Chris Schmidt MD Physician Internal Medicine-Gastroenterology 06/09/16 documented as of this encounter
--- OUTSIDE RECORDS SUMMARY | 2025-05-23 20:42 | XMS_ITS | Clinical Summary ---
Author Organization [facility] Address [address] [place] [address] Care Team Providers Care Knockout Worker Name Role Phone Pcp, No Primary Care Provider [phone] Source Comments This information has been disclosed [...] therelease of HIV test results or diagnoses. [id number] Allergies Active Allergy Reactions Criticality Noted [...] Date Last Done Comments Hepatitis C Screening (evidanzahart) 1989 Alcohol Misuse Screening 09/30/2007 HIV Screening 09/30/2007 Immunization: Pneumococcal ( 1 of 2 - PCV) 2008 Cervical Cancer Screening/Pa p Smear (MyChart) 09/30/2019 Immunization: DTaP/Tdap/Td ( 3 - Td or Tdap) 08/17/2023 08/16/2013, 08/31/2012 Depression Screening 10/28/2023 10/27/2022 Immunization: COVID-19 ( season) 2025 Immunization: Influenza (MyC summers) (#1) 2025 Immunization: Hepatitis B Completed 2000, 09/28/2000, 08/10/2000 Insurance [facility] Care Teams Knockout Worker Relationship Specialty Start Date End Date Pcp, No [address] [place] [address] PCP - General 04/28/22
--- OUTSIDE RECORDS SUMMARY | 2025-05-23 20:42 | XMS_ITS | Clinical Summary ---
Author Organization [facility] Address [address] [place] [address] Care Team Providers Care Machine Pie Maker Name Role Phone Provider, External Primary Care [...] (2 - Td or Tdap) 08/17/2023 08/16/2013 [id number] Vaccine (1 - season) 2025 [facility]-Influenza Vaccine (#1) 2025 [facility]-Zoster Vaccines (1 [...] this topic Insurance [employer] Care Teams Machine Pie Maker Relationship Specialty Start Date End Date Provider, External PCP - General 02/02/23
--- OUTSIDE RECORDS SUMMARY | 2025-05-23 20:42 | XMS_ITS | Encounter Summary ---
Author Organization [place] [address] Care Team Providers Care Global Commodity Manager Name Role Phone Lauro Cho MD Primary Care Provider [phone] Chris Schmidt MD Unavailable Unavailable [facility] Primary Care Provider [phone] Encounter Details Date Type Department Care Team (Late st Contact Info) Description 05/19/2016 Refill [facility] [address] [place] [address] Lauro Cho MD [address] [phone] Social History Tobacco Use Types Packs/Day [...] documented as of this encounter Care Teams Global Commodity Manager Relationship Specialty Start Date End Date Lauro Cho MD [address] [phone] PCP - General Internal Medicine 01/06/13 04/23/24 Zakiya Gutierrez [address] [phone] PCP - General Clinic/Center - [facility] ([facility]) 04/24/24 Chris Schmidt MD [address] [phone] Physician Internal Medicine-Gastroenterology 06/09/16 documented as of this encounter
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
--- OUTSIDE RECORDS SUMMARY | 2025-05-23 20:42 | XMS_ITS | Encounter Summary ---
Author Organization [place] [address] Care Team Providers Care Control Clerk Subassembly Name Role Phone Lauro Cho MD Primary Care Provider [phone] Chris Schmidt MD Unavailable Unavailable [facility] Primary Care Provider [phone] Reason for Referral * MRI/CAT Scan (Routine) - Closed Specialty Diagnoses / Procedures Referred By Contac t Referred To Contact Radiology Diagnoses Back pain Procedures MRI LUMBAR SPINE WO CONTRAST Fantasma Pettit MD Phone: tel: fax: Referral ID Status Reason Start Date Expiration Date Visits Re quested Visits Authorized [id number] Closed 02/02/2014 08/01/2014 1 1 Encounter Details Date Type Department Care Team (Latest Contact Info) Description 02/02/2014 Pre-Imaging Procedure MD Adult Med [address] [place] [id number] Kathy Bowen RT Back pain (Primary Dx) Social History [...] documented as of this encounter Care Teams Control Clerk Subassembly Relationship Specialty Start Date End Date Lauro Cho MD [address] [phone] PCP - General Internal Medicine 01/06/13 04/23/24 Zakiya Gutierrez [address] [id number] PCP - General Clinic/Center - [facility] ([facility]) 04/24/24 Chris Schmidt MD [address] [address] Physician Internal Medicine-Gastroenterology 06/09/16 documented as of this encounter
--- OUTSIDE RECORDS SUMMARY | 2025-05-23 20:42 | XMS_ITS | Encounter Summary ---
Author Organization [place] [address] Care Team Providers Care Global Lead Name Role Phone Lauro Cho MD Primary Care Provider [phone] Chris Schmidt MD Unavailable Unavailable [facility] Primary Care Provider [phone] Encounter Details Date Type Department Care Team (Late st Contact Info) Description 03/01/2018 Refill [facility] [address] [place] [address] Lauro Cho MD [address] [...] 06/28/2017 11:38 AM Bhumi Lamar CCMA * Because of a physical, mental or emotional condition, does this person have difficulty doing errands alone such as visiting a doctor's office or shopping? Answer Date of Assessment Author No 06/28/2017 11:38 AM Bhumi Lamar CCMA documented as of this encounter Mental Status [...] reach an ideal body weight General No Bedoya Mounika N, RMA Stay Tobacco Free Lifestyle [...] as of this encounter Care Teams Global Lead Relationship Specialty Start Date End Date Lauro Cho MD [facility] [address] [place] [phone] PCP - General Internal Medicine 01/06/13 04/23/24 Zakiya Gutierrez [address] [address] PCP - General Clinic/Center - [facility] ([facility]) 04/24/24 Chris Schmidt MD COUNTRY [facility] [address] [address] Physician Internal Medicine-Gastroenterology 06/09/16 documented as of this encounter
--- OUTSIDE RECORDS SUMMARY | 2025-05-23 20:42 | XMS_ITS | Clinical Summary ---
Author Organization [facility] Address [address] [place] [address] Care Team Providers Care Personal Fitness Manager Name Role Phone Unavailable Primary Care Provider Unavailabl e Source Comments [facility] is fully rolled out with thefollowing exceptions:General Clinical Research [facility] Social History Tobacco Use Types Packs/Day Years [...] 1990 DTAP/Tdap/Td IMMUNIZATION (1 - Tdap) 1996 Yearly Physical Ages 3-18+ 2000 VARICELLA IMMUNIZATION (1 of 2 - 13+ 2-dose series) 2002 HEPATITIS B IMMUNIZATION (1 of 3 - 19+ 3-dose series) 2008 AMB SEASONAL FLU VACCINE (#1) 01/22/2025 COVID-19 Vaccine ( - 2024-2 6 season) 2025 HIB IMMUNIZATION Aged Out No longer e ligible based on patient's age to complete this topic HPV IMMUNIZATION (No Doses Required) Completed IPV IMMUNIZATION Aged Out No longer e [...]
--- NOTE | 2025-05-23 20:45 | XR_ITS ---
PROCEDURE INFORMATION: Exam: XR Left Tibia and Fibula Exam date and time: 05/23/2025 8:56 PM Age: 34 years old Clinical indication: Injury or trauma; Fall; Other: Diffuse pain; Additional info: Fall pain diffuse TECHNIQUE: Imaging protocol: Radiologic exam of the left tibia and fibula. Views: 2 views. COMPARISON: CR XR ANKLE LT MIN 3V 05/23/2025 8:56 PM FINDINGS: Bones/joints: Normal. No acute fracture identified. Soft tissues: Normal. IMPRESSION: No acute findings.
--- NOTE | 2025-05-23 20:45 | XR_ITS ---
PROCEDURE INFORMATION: Exam: XR Left Knee Exam date and time: 05/23/2025 8:56 PM Age: 34 years old Clinical indication: Injury or trauma; Fall; Other: Diffuse pain; Additional info: Fall knee pain TECHNIQUE: Imaging protocol: Radiologic exam of the left knee. Views: 3 views. COMPARISON: CR XR ANKLE LT MIN 3V 05/23/2025 8:56 PM FINDINGS: Bones/joints: Normal. No fracture evident Soft tissues: Normal. IMPRESSION: No acute findings.
--- NOTE | 2025-05-23 20:45 | XR_ITS ---
PROCEDURE INFORMATION: Exam: XR Left Ankle Exam date and time: 05/23/2025 8:56 PM Age: 34 years old Clinical indication: Injury or trauma; Fall; Other: Diffuse pain; Additional info: Fall pain medial lateral TECHNIQUE: Imaging protocol: Radiologic exam of the left ankle. Views: 3 or more views. COMPARISON: CR XR TIBIA FIBULA LT 2V 05/23/2025 8:56 PM FINDINGS: Bones/joints: Normal. No acute fracture identified. Soft tissues: Normal. IMPRESSION: No acute findings.
--- NOTE | 2025-05-23 20:47 | [facility].EDGENADL ---
Discharge Plan Disposition Patient Disposition: Home, Self-Care Prescriptions Prescriptions: New methocarbamol 500 mg tablet 1,000 mg PO Q8H PRN (Reason: muscle pain and spasm) Qty: 30 0RF No Action fluticasone propionate 50 mcg/actuation spray,suspension 1 spray intranasal DIRECTED PRN (Reason: Allergy Symptoms) Patient Comments: USE 1 SPRAY INTO EACH NOSTRIL DAILY omeprazole 40 mg capsule,delayed release(DR/EC) 40 mg PO DAILY Patient Comments: TAKE 1 CAPSULE BY MOUTH EVERY DAY albuterol sulfate 90 mcg/actuation HFA aerosol inhaler 2 puff inhalation Q4-6H PRN (Reason: shortness of breath or wheezing) Qty: 8.5 0RF methylprednisolone 4 mg tablets,dose pack See Rx Instructions PO PER PKG DIR Qty: 21 0RF Rx Instructions: PO PER PKG DIR doxycycline hyclate 100 mg tablet 100 mg PO BID Qty: 20 0RF moxifloxacin 0.5 % drops 1 drp ophthalmic (eye) TID 7 Days Qty: 3 0RF topiramate 100 mg tablet 100 mg PO BID Qty: 180 1RF venlafaxine 150 mg capsule,extended release 24hr 150 mg PO DAILY Qty: 90 1RF trazodone 100 mg tablet 100 mg PO HS Qty: 90 1RF tamsulosin 0.4 mg capsule 0.4 mg PO DAILY Qty: 30 0RF ropinirole 0.25 mg tablet See Rx Instructions .ROUTE .COMPLEX Qty: 30 0RF Dose Instruction: TAKE 1 TABLET BY MOUTH AT BEDTIME NIGHTLY ADMINISTER 1-3 HOURS BEFORE BEDTIME Rx Instructions: TAKE 1 TABLET BY MOUTH AT BEDTIME NIGHTLY ADMINISTER 1-3 HOURS BEFORE BEDTIME fluconazole 150 mg tablet 150 mg PO WEEKLY Qty: 2 1RF arapgilxvncpczx-[id number]-DK [Bromfed DM] 2-30-10 mg/5 mL syrup 5 ml PO Q4-6H PRN (Reason: cold symptoms) Qty: 240 0RF colestipol [Colestid] 1 gram tablet 2 g PO .At bedtime Qty: 60 12RF Rx Instructions: Please take 2 tablets p.o. nightly lidocaine 5 % adhesive patch,medicated 1 patch topical DAILY Qty: 30 0RF Rx Instructions: leave on most painful area for up to 12 hrs ondansetron 4 mg tablet,disintegrating 4 mg PO Q6H PRN (Reason: nausea and vomiting) 5 Days Qty: 20 0RF Referrals Follow up/Referrals: Nanette Funez APRN [Primary Care Provider, Family Practice] - See instructions Keagan De Luna DO [Staff Physician, Orthopedics] - See instructions Activity Restrictions/Add. Instructions Additional Instructions/Restrictions: At this time it was felt you are safe to be discharged home. If new or worsening symptoms please do not hesitate to return the emergency department. Please use your crutches and bear weight as tolerated on your left knee as you are able. If persistent pain longer than 1 week or feeling unstable please call and schedule an appoint with Dr. De Luna as soon as you are able. Please take ibuprofen and Tylenol for pain control and your muscle relaxer as prescribed. Clinical Impressions Clinical Impression: Acute knee pain, Strain of cervical portion of left trapezius muscle Print Language Print Language: Spanish Discharge ED Provider: Zev Galvez General Adult HPI General Chief complaint: Extremity Injury, Lower Stated complaint: AO 05-23 fell and left knee , foot , and leg pain Time Seen by Provider: 05/23/25 20:36 History of Present Illness HPI narrative: Patient is a 34-year-old female no pertinent past medical history presents emergency department for evaluation of traumatic injury sustained in a fall. Patient was holding a leash in her right hand when her large husky began chasing a chicken and she fell onto an outstretched left hand and knee. She is complaining of left posterior shoulder pain but no distal left upper extremity pain and her main concern is the pain in her left knee for which she is able to partially bear weight but has moderate to severe pain extending from her knee down to her ankle and has some tingling extending distally into her foot. No pain over the right upper extremity or right lower extremity. No other traumatic complaints at this time. Please note that above description of symptoms, in this electronic medical record under categorization of recalled from ER triage doctor by RN are reflective of an initial nursing assessment, however, is not reflective of my full history and physical exam that was personally taken and clarified. Consequentially, this preceding description of symptoms, which may include the patient's categorized chief complaint in the EMR, do not reflect my personal clinical impression, and the ultimate description of history of present illness and patient stated complaints should be deferred to this section of the note. Unless stated otherwise or congruent with this section of the note, additional signs, symptoms, or incongruence should be interpreted as inaccurate with my clinical impression. Related Data Home Medications ?Medication ?Instructions ?Recorded ?Confirmed fluticasone propionate 50 1 spray intranasal DIRECTED PRN 08/22/24 01/24/25 mcg/actuation nasal Allergy Symptoms spray,suspension omeprazole 40 mg capsule,delayed 40 mg PO DAILY 08/22/24 01/24/25 release Previous Rx's ?Medication ?Instructions ?Recorded topiramate 100 mg tablet 100 mg PO BID #180 tabs 05/03/24 trazodone 100 mg tablet 100 mg PO HS #90 tabs 05/03/24 venlafaxine 150 mg 150 mg PO DAILY #90 caps 05/03/24 capsule,extended release 24 hr colestipol 1 gram tablet (Colestid) 2 g (2 x 1 gram) PO .At bedtime 07/20/24 #60 tabs lidocaine 5 % topical patch 1 patch topical DAILY #30 ea 08/21/24 tamsulosin 0.4 mg capsule 0.4 mg PO DAILY #30 caps 09/06/24 ondansetron 4 mg disintegrating 4 mg PO Q6H PRN nausea and 09/27/24 tablet vomiting 5 days #20 tabs albuterol sulfate 90 mcg/actuation 2 puff inhalation Q4-6H PRN 10/10/24 aerosol inhaler shortness of breath or wheezing #8.5 grams ropinirole 0.25 mg tablet See Rx Instructions .Route 11/06/24 .COMPLEX #30 tabs doxycycline hyclate 100 mg tablet 100 mg PO BID #20 tabs 01/24/25 methylprednisolone 4 mg tablets in See Rx Instructions PO PER PKG DIR 01/24/25 a dose pack #21 tabs moxifloxacin 0.5 % eye drops 1 drp ophthalmic (eye) TID 7 days 01/24/25 #3 mL fluconazole 150 mg tablet 150 mg PO WEEKLY #2 tabs 01/29/25 kdgzlzbwwaiobjq-zrpevpwwskbrvcf-IK 5 ml PO Q4-6H PRN cold symptoms 02/09/25 2 mg-30 mg-10 mg/5 mL oral syrup #240 mL (Bromfed DM) methocarbamol 500 mg tablet 1,000 mg (2 x 500 mg) PO Q8H PRN 05/23/25 muscle pain and spasm #30 tabs Allergies Allergy/AdvReac Type Severity Reaction Status Date / Time cephalexin (From Keflex) Allergy Hives Verified 01/24/25 13:40 clarithromycin (From Biaxin) Allergy Hives Verified 01/24/25 13:40 celecoxib (From Celebrex) AdvReac Unknown GI upset Verified 01/24/25 13:40 NSAIDS (Non-Steroidal AdvReac Unknown GI upset Verified 01/24/25 13:40 Anti-Inflamma amoxicillin (From Augmentin) AdvReac Vomiting Verified 01/24/25 13:40 clavulanic acid (From AdvReac Vomiting Verified 01/24/25 13:40 Augmentin) [facility] Disclaimer: The information contained in this section may have been updated after the patient was seen, as this information can be updated by other users. Medical History Hematuria History of kidney stones Right flank pain Wolfgang blood in stool Depression Anxiety Surgical History S/P lumbar discectomy S/P section S/P cholecystectomy Family History Grandfather Cancer Other No significant family history Social History Smoking Status: Current every day smoker alcohol intake: current substance use type: denies use current occupational status: other Travel in the last 8 weeks?: None Have you lived/traveled outside [place] in past 30 days?: No Contact w/someone who lives/traveled outside [place] past 30 days?: No Exposure to someone with infectious disease in past 14 days?: No Do you have a fever (greater than 100.4 F or 38 C)?: No Have you tested positive for COVID-19?: No Exposed to someone with COVID-19 in past 14 days?: No Do you have a sore throat?: No Do you have a cough?: No Do you have any weakness?: No Do you have any diarrhea?: No Are you experiencing any unusual bleeding?: No Do you have any muscle aches/pain?: No Do you have any abdominal pain?: No Are you experiencing loss of taste or smell?: No Other Medical History Have you received the Flu Vaccine for this season: No Have you received the Pneumonia Vaccine: No ROS Obtained: Yes Systems reviewed as appropriate & no additional complaints except as documented Physical Exam General General appearance: alert and in no apparent distress Head Head exam: atraumatic and normocephalic Eye Eye exam: Present PERRL and EOMI ENT ENT exam: Present mucous membranes moist Neck Neck exam: Present normal inspection Chest Chest inspection: Present normal inspection and symmetric chest wall rise Respiratory Respiratory exam: Absent respiratory distress Cardiovascular Cardiovascular exam: Present regular rate and normal rhythm Extremities Exam Extremities exam: Present other Neurological Exam Neurological exam: Present alert and oriented X3 Psychiatric Psychiatric exam: Present normal affect Skin Skin exam: Present warm and dry Medical Decision Making Medical Records Medical records reviewed: Yes I reviewed the patient's medical records. Screening: Per USPSTF and CDC recommendations, given the prevalence of disease in our region, it is our hospital?s policy to screen for HIV and viral Hepatitis for all patients aged 18 and over and those with ongoing risk factors. [facility] Inquiry Pt receiving controlled substance: No Vital Signs: 05/23/25 20:41 Temperature 98.9 F Temperature Source Oral Pulse Rate [Right] 74 Respiratory Rate 18 Blood Pressure [Right Arm] 123/78 Blood Pressure Mean [Right Arm] 93 02 Sat by Pulse Oximetry 98 Oxygen Delivery Method Room Air Lab Data Lab Results 05/23/25 21:20: Urine HCG, Qual Negative Orders (Tests/Meds): ED MEDICATIONS Discontinued Medications Generic Name Dose Route Start Last Admin Trade Name Freq PRN Reason Stop Dose Admin Hydrocodone Bitart/Acetaminophen 1 tab 05/23/25 20:45 05/23/25 21:37 Hydrocodone/Apap 5/325 Mg Tablet PO 05/23/25 20:46 1 tab ONCE ONE Administration Lidocaine 1 each 05/23/25 20:45 05/23/25 21:36 Lidocaine 5% Transdermal Patch TD 05/23/25 20:46 1 each ONCE ONE Administration Methocarbamol 1,000 mg 05/23/25 20:45 05/23/25 21:37 Methocarbamol 500mg Tablet PO 05/23/25 20:46 1,000 mg ONCE ONE Administration ORDERS Category Date Time Status CT knee LT wo con Stat Cat Scan 05/23/25 21:14 Completed Ankle XR - Left minimum 3 Views [XR ankle LT min 3V] Exams 05/23/25 20:45 Completed Stat Fibula/tibia XR left 2 views [XR tibia fibula LT 2V] Exams 05/23/25 20:45 Completed Stat Knee XR left 3 views [XR knee LT 3V] Stat Exams 05/23/25 20:45 Completed Urine , HCG Qual. Stat Lab 05/23/25 21:20 Completed Medical Decision Narrative: In summary patient is a 34-year-old female with past medical history described above presents emergency department for evaluation of traumatic injury sustained in a fall. Patient is hemodynamically stable and nontoxic-appearing upon arrival, afebrile. Differential diagnosis includes fracture, musculoskeletal strain, among others. Patient certainly has strained trapezius and rhomboid muscles in her back but did not have any direct traumatic injury to her shoulder or back that would warrant imaging at this time. Trauma survey will be conducted with plain films of the left lower extremity. Initial inventions include multimodal pain control. CT imaging that was considered will be deferred given that she did not strike her head and does not take blood thinners. X-rays informally interpreted by me no acute displaced fracture or dislocation. Given the severity of her pain and swelling occult fracture of the knee is on the differential for which noncontrasted CT scan will be ordered. Noncontrasted CT scan of the left knee no acute fracture. Given this patient was placed in Eder wrap and given crutches and will be weightbearing as tolerated and will follow-up on an outpatient basis for continued evaluation. 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 Electronic rehabilitation team lead of the spoken language may permit errors. Although I have reviewed the note, some errors may still exist. Critical Care Critical Care Time Critical Care Time: No
--- NOTE | 2025-05-23 21:14 | CT_ITS ---
PROCEDURE INFORMATION: Exam: CT Left Lower Extremity Without Contrast, Knee Exam date and time: 05/23/2025 9:46 PM Age: 34 years old Clinical indication: Pain and injury or trauma; Fall; Blunt trauma; Knee; Left; Additional info: Fall pain swelling TECHNIQUE: Imaging protocol: CT of the left lower extremity without contrast was performed. Exam focused on the knee. Radiation optimization: All CT scans at this facility use at least one of these dose optimization techniques: automated exposure control; mA and/or kV adjustment per patient size (includes targeted exams where dose is matched to clinical indication); or iterative reconstruction. COMPARISON: CR XR KNEE LT 3V 05/23/2025 8:56 PM FINDINGS: Bones/joints: Normal. No acute fracture or dislocation. Soft tissues: Normal. IMPRESSION: Unremarkable CT.
[2025-05-23 21:36] LABS: Urine Pregnancy, HCG Qual. Negative (Negative)
[2025-05-23] MEDS: LIDOCAINE 5% TRANSDERMAL PATCH 1 EACH TD (21:36)
[2025-05-23] MEDS: METHOCARBAMOL 500MG TABLET 1000 MG PO (21:37)
[2025-05-23] MEDS: HYDROCODONE/APAP 5/325 MG TABLET 1 TAB PO (21:37)
[2025-05-23 22:14] VITALS: BP 125/77; PULSE 84; RESP 18; TEMP 37; O2SAT 98
== END 2025-05-23 22:18 | disposition home or self-care (01) ==
PROVIDERS: Emergency Provider Emergency Medicine; PCP Nurse Practitioner
DX: M25.562 Pain in left knee (principal); S16.1XXA Strain of muscle, fascia and tendon at neck level, initial encounter; W18.39XA Other fall on same level, initial encounter
CPT/HCPCS: 73562; 73590; 73610; 73700; 81025; 99284